=== PATIENT | female | born 1980 | race Two or more races ===

== ENCOUNTER → 2020-07-13 09:13 | Outpatient (BNVA) | payer OTHER, SELFPAY | PROVIDERS: PCP Family Medicine Geriatric Medicine; Referring Provider Family Medicine Geriatric Medicine; Visit Provider Nurse Practitioner | DX: Z76.89 Persons encountering health services in other specified circumstances (principal) ==

== ENCOUNTER 2020-08-25 09:20 | Day surgery (SDC) | payer OTHER, SELFPAY ==
[2020-08-19 15:06] VITALS: BMI 35.2
--- NOTE | 2020-08-24 08:35 | HO.ANESPROP2 ---
Documented by User: Joana Alexandra 08/24/20 08:36 HPI - Anesthesia Eval Consult details Narrative: 40yo F for Colonoscopy PMFSH Past Medical History Medical History Back pain Depression Diabetes mellitus GERD (gastroesophageal reflux disease) High cholesterol Hypothyroid IBS (irritable bowel syndrome) Migraine HINA on CPAP Family History Family History Father Diabetes Mental health problem Mother HTN (hypertension) Heart problem Type 2 diabetes mellitus Brother Colon cancer Surgical History Surgical History Hx of cholecystectomy Hx of colonoscopy Hx of esophagogastroduodenoscopy Social History Social History Alcohol intake: current Alcohol intake frequency: holidays/special occasions only Smoking Status: Never smoker Use of substances other than those prescribed or required for medical reasons: No Advance Directives: No Advance Directives Information Provided: No Advance Directives on File: No Recently lost weight without trying: No Meds Allergies Allergy/AdvReac Type Severity Reaction Status Date / Time sumatriptan [From IMITREX] Allergy Intermediate RIGHT Verified 08/19/20 14:59 SIDED FACIAL NUMBNESS zolmitriptan [From ZOMIG] Allergy Intermediate PASSED OUT Verified 08/19/20 14:59 Home Medications Medication Instructions Recorded Confirmed Type atorvastatin 1 tab PO DAILY 08/19/20 08/19/20 History azelastine 2 spray INTRANASAL BID 08/19/20 08/19/20 History baclofen 1 tab PO TID PRN 08/19/20 08/19/20 History cholecalciferol (vitamin D3) 1 tab PO DAILY 08/19/20 08/19/20 History [Vitamin D3] dapagliflozin [Farxiga] 1 tab PO DAILY 08/19/20 08/19/20 History levothyroxine [Synthroid] 1 tab PO DAILY 08/19/20 08/19/20 History Exam Exam Date and Time: August 24, 2020 0835 Height,Weight and Vital Signs: Height 5 ft 5 in Weight 96.162 kg Assessment and Plan Assessment Anesthesia Assessment: Chart Reviewed Documented by User: Silver Angeles 08/25/20 10:51 PMFSH Past Medical History Medical History Back pain Depression Diabetes mellitus GERD (gastroesophageal reflux disease) High cholesterol Hypothyroid IBS (irritable bowel syndrome) Migraine HINA on CPAP Family History Family History Father Diabetes Mental health problem Mother HTN (hypertension) Heart problem Type 2 diabetes mellitus Brother Colon cancer Surgical History Surgical History Hx of cholecystectomy Hx of colonoscopy Hx of esophagogastroduodenoscopy Social History Social History Alcohol intake: current Alcohol intake frequency: holidays/special occasions only Smoking Status: Never smoker Use of substances other than those prescribed or required for medical reasons: No Advance Directives: No Advance Directives Information Provided: No Advance Directives on File: No Recently lost weight without trying: No Meds Allergies Allergy/AdvReac Type Severity Reaction Status Date / Time sumatriptan [From IMITREX] Allergy Intermediate RIGHT Verified 08/19/20 14:59 SIDED FACIAL NUMBNESS zolmitriptan [From ZOMIG] Allergy Intermediate PASSED OUT Verified 08/19/20 14:59 Home Medications Medication Instructions Recorded Confirmed Type atorvastatin 1 tab PO DAILY 08/19/20 08/19/20 History azelastine 2 spray INTRANASAL BID 08/19/20 08/19/20 History baclofen 1 tab PO TID PRN 08/19/20 08/19/20 History cholecalciferol (vitamin D3) 1 tab PO DAILY 08/19/20 08/19/20 History [Vitamin D3] dapagliflozin [Farxiga] 1 tab PO DAILY 08/19/20 08/19/20 History levothyroxine [Synthroid] 1 tab PO DAILY 08/19/20 08/19/20 History Exam Airway Mallampati Class: III TM Dist: >3cm Neck ROM: Full Loose/Missing/Broken Teeth: No Heart: RRR+[id number] Lungs: CTA B/L Assessment and Plan Assessment Anesthesia Assessment: Anesthesia Plan Discussed, PAT Visit and Chart Reviewed Final Anesthetic Review NPO: Yes ASA Class: II Final Preanesthetic Review: No Changes in Pt Med Stat, Meds/Allgs Chart Reviewed, Consent Obtained/Reviewed and Anes Risks/Benef Reviewed Patient Risk: Low Procedure Risk: Low Assessment/Block/Sedation in SS: Assess/Block/Sedation-SS Anesthetic Plan Anesthetic Plan: MAC: and Agree w/ Assess. and Plan Disposition: Standard PACU
[2020-08-25 09:53] LABS: UPreg QC Valid YES; Urine Pregnancy NEGATIVE (NEGATIVE)
[2020-08-25 09:58] VITALS: BP 114/62; PULSE 64; RESP 16; TEMP 36.3; O2SAT 100
[2020-08-25 10:08] LABS: Glucose, Whole Blood 90 mg/dL (60-115)
[2020-08-25] MEDS: Lactated Ringers 1,000 ML 100 ML IVCONT (10:14)
--- NOTE | 2020-08-25 10:47 | P.HPSUR_ITS ---
Pre-Procedural Eval Section B Chief Complaint: constipation,abdominal distension Details of Present Illness: Colon cancer screening--Pos Family hx-brother with colon cancer. Relevant Family History (Specify if Yes): Yes Relevant Social History: None Present Medications: see Short Stay Collaborative assessment Medical History: Significant History (Migraine hx, Obesity, GERD) History of Previous Operations: Relevant previous surgery/procedure and date(s) (2014--colo-) Allergies: Allergies Allergy/AdvReac Type Severity Reaction Status Date / Time sumatriptan [From IMITREX] Allergy Intermediate RIGHT Verified 08/19/20 14:59 SIDED FACIAL NUMBNESS zolmitriptan [From ZOMIG] Allergy Intermediate PASSED OUT Verified 08/19/20 14: 59 Review of Systems Sugical H&P ROS: Negative: Constitution, Cardiovascular, Respiratory, Gastrointestinal and Musculoskeletal Exam Surgical H&P Exam: Normal: HEENT, Normal: Heart, Normal: Lungs, Normal: Extremities and Normal: Abdomen Plan Diagnosis/Plan: Unchanged I have reviewed the history and physical and performed a pertinent physical examination on my patient. No changes have occurred unless specified.yes,
--- NOTE | 2020-08-25 11:24 | PM.PROC ---
Brief Operative Note Date of procedure: 08/25/20 Pre-op diagnosis: COLON CANCER SCREENING-BROTHER WITH COLON CANCER Post-op diagnosis: other (POLYP-POS FAMILY HISTORY) Procedure: COLONOSCOPY WITH EXCISIONAL POLYPECTOMT Anesthesia: MAC (LATISHA NOWAK) Surgeon: Gayla Cuenca Estimated blood loss (mL): 5 Pathology: other (DISTAL TRANSVERSE COLON) Condition: stable Disposition: PACU
[2020-08-25 11:28] VITALS: BP 104/57; PULSE 67; RESP 67; TEMP 36.3; O2SAT 98
[2020-08-25 11:43] VITALS: BP 116/73; PULSE 60; RESP 16; O2SAT 100
[2020-08-25 12:01] VITALS: BP 114/68; PULSE 58; RESP 16; TEMP 36.3; O2SAT 100
--- NOTE | 2020-08-25 12:39 | HO.POSTANES ---
Post Anesthesia Evaluation Post Anesthesia Evaluation Vital Signs: Vital Signs Temp Pulse Resp BP Pulse Ox 08/25/20 12:01 97.3 F 58 16 114/68 100 08/25/20 11:43 60 16 116/73 100 08/25/20 11:28 97.3 F 67 67 H 104/57 L 98 08/25/20 09:58 97.4 F 64 16 114/62 100 Anesthesia: Monitored Mental Status: Awake Pain Control: Satisfactory Nausea/Vomiting: None Hydration: Adequate Anesthesia-Related Issues: No Anes. Related Issues (Pt has migraine which she gets regulary. Takes her headache injection on the so she will take it when she gets home. Offered coffee/apap. Pt declines and wants to be discharged home.)
--- NOTE | 2020-08-25 13:14 | OP_ITS ---
SURGEON: Gayla Cuenca MD POSTOPERATIVE DIAGNOSIS: Diminutive polyp. PROCEDURE PERFORMED: Colonoscopy with excisional polypectomy x1 (cold biopsy forceps use). ESTIMATED BLOOD LOSS: No significant blood loss. COMPLICATIONS: No complications. ANESTHESIA: Monitored. ANESTHESIOLOGIST: Krystin Jha CRNA ASSISTANTS: No anatomic pathology assistant. SPECIMENS: Specimen removed, distal transverse colon. PREOPERATIVE DIAGNOSES: Colon cancer screening, positive family history, colon cancer in her brother. BOILER TECHNICIAN: Dr. Cuenca. CONDITION: Postprocedure, stable. FINDINGS: Digital rectal exam revealed no specific lesion. Video colonoscope was introduced without difficulty. It was navigated into the rectosigmoid area. Initially with CO2 insufflation, there was poor distention in this region. We switched to air insufflation for the procedure with much better luminal distention. Scope slowly moved through sigmoid, descending, past splenic flexure into the distal transverse colon. A diminutive polyp was identified and removed excisionally (unclear cryptic pattern). Scope continued to be advanced through proximal transverse colon, hepatic flexure, ultimately into the cecum. Appendiceal orifice was seen. Ileocecal valve was eccentrically positioned, but well visualized with some bilious effluent noted during the procedure. Prep was good. There were some areas of residual sticky fluid, which was easily flushed and suctioned. Scope was slowly withdrawn. Good rotational views. No additional lesions were seen. Anorectal verge was clear. CURRENT RECOMMENDATIONS: Repeat asymptomatic screening in this patient will continue to be 5 years. GRAFT OR IMPLANTS: No grafts or implants. Gayla Cuneca MD MEN/MODL / [id number] [facility]
== END 2020-08-25 12:42 | disposition home or self-care (01) ==
PROVIDERS: Nurse Practitioner; Visit Provider Internal Medicine Gastroenterology
PROC: 0DJD8ZZ Inspection of Lower Intestinal Tract, Via Natural or Artificial Opening Endoscopic (ICD-10-PCS; CPT 45378; principal; 2020-08-25 10:40)
DX: K59.00 Constipation, unspecified (principal); Z80.0 Family history of malignant neoplasm of digestive organs; R14.0 Abdominal distension (gaseous); K63.5 Polyp of colon; K21.9 Gastro-esophageal reflux disease without esophagitis; E11.9 Type 2 diabetes mellitus without complications; G47.33 Obstructive sleep apnea (adult) (pediatric); Z79.899 Other long term (current) drug therapy; Z99.89 Dependence on other enabling machines and devices; Z90.49 Acquired absence of other specified parts of digestive tract; Z88.8 Allergy status to other drugs, medicaments and biological substances
CPT/HCPCS: 45380; 81025; 82947; 88305

== ENCOUNTER 2020-09-12 13:14 | Outpatient (REF) | payer OTHER, SELFPAY | END 2020-09-12 13:15 | disposition home or self-care (01) | LOC: HO.LAB 13:14 | PROVIDERS: Visit Provider Internal Medicine | DX: Z20.822 Contact with and (suspected) exposure to COVID-19 (principal) | CPT/HCPCS: 36415; C9803; U0003; U0005 ==

== ENCOUNTER → 2020-10-17 09:43 | Outpatient (BNVA) | payer OTHER, SELFPAY | PROVIDERS: PCP Family Medicine Geriatric Medicine; Visit Provider Nurse Practitioner ==

== ENCOUNTER → 2020-12-16 10:07 | Outpatient (BNVA) | payer OTHER, SELFPAY | PROVIDERS: PCP Family Medicine Geriatric Medicine; Visit Provider Nurse Practitioner ==

== ENCOUNTER → 2021-01-30 09:17 | Outpatient (BNVA) | payer OTHER, SELFPAY | PROVIDERS: Visit Provider Nurse Practitioner ==

== ENCOUNTER → 2021-05-01 08:35 | Outpatient (BNVA) | payer OTHER, SELFPAY | PROVIDERS: PCP Nurse Practitioner Family; Visit Provider Nurse Practitioner ==

== ENCOUNTER → 2021-07-13 08:13 | Outpatient (BNVA) | payer OTHER, SELFPAY | PROVIDERS: PCP Nurse Practitioner Family; Visit Provider Nurse Practitioner ==

== ENCOUNTER → 2021-10-20 07:56 | Outpatient (BNVA) | payer OTHER, SELFPAY | PROVIDERS: PCP Nurse Practitioner Family; Referring Provider Nurse Practitioner Family; Visit Provider Nurse Practitioner | DX: K59.00 Constipation, unspecified (principal); K21.9 Gastro-esophageal reflux disease without esophagitis; K63.89 Other specified diseases of intestine; R14.0 Abdominal distension (gaseous) | CPT/HCPCS: 99212 ==

== ENCOUNTER → 2021-11-14 07:05 | Outpatient (BNVA) | payer OTHER, SELFPAY | PROVIDERS: PCP Nurse Practitioner Family; Referring Provider Nurse Practitioner Family; Visit Provider Nurse Practitioner | DX: K21.9 Gastro-esophageal reflux disease without esophagitis (principal); K59.00 Constipation, unspecified; R14.0 Abdominal distension (gaseous) | CPT/HCPCS: 99212 ==

== ENCOUNTER → 2021-12-14 07:09 | Outpatient (BNVA) | payer OTHER, SELFPAY | PROVIDERS: PCP Nurse Practitioner Family; Referring Provider Nurse Practitioner Family; Visit Provider Nurse Practitioner | DX: K59.00 Constipation, unspecified (principal); K21.9 Gastro-esophageal reflux disease without esophagitis; K63.89 Other specified diseases of intestine; R10.13 Epigastric pain; R14.0 Abdominal distension (gaseous) | CPT/HCPCS: 99212 ==

== ENCOUNTER → 2022-03-23 08:23 | Outpatient (BNVA) | payer OTHER, SELFPAY | PROVIDERS: PCP Nurse Practitioner Family; Visit Provider Nurse Practitioner | DX: K59.00 Constipation, unspecified (principal); R14.0 Abdominal distension (gaseous); K58.9 Irritable bowel syndrome, unspecified; K21.9 Gastro-esophageal reflux disease without esophagitis; K63.89 Other specified diseases of intestine | CPT/HCPCS: 99212 ==

== ENCOUNTER → 2022-09-21 14:33 | Outpatient (BNVA) | payer OTHER, SELFPAY | PROVIDERS: PCP Nurse Practitioner Family; Visit Provider Nurse Practitioner | DX: K59.04 Chronic idiopathic constipation (principal); K21.9 Gastro-esophageal reflux disease without esophagitis; R14.0 Abdominal distension (gaseous) | CPT/HCPCS: 99212 ==

== ENCOUNTER → 2022-10-05 07:50 | Outpatient (BNVA) | payer OTHER, SELFPAY | PROVIDERS: PCP Nurse Practitioner Family; Referring Provider Nurse Practitioner Family; Visit Provider Nurse Practitioner | DX: K21.9 Gastro-esophageal reflux disease without esophagitis (principal); K63.89 Other specified diseases of intestine; K59.00 Constipation, unspecified; R14.0 Abdominal distension (gaseous); R11.0 Nausea | CPT/HCPCS: 99212 ==

== ENCOUNTER → 2022-11-09 09:53 | Outpatient (BNVA) | payer OTHER, SELFPAY | PROVIDERS: PCP Nurse Practitioner Family; Visit Provider Nurse Practitioner | DX: K21.9 Gastro-esophageal reflux disease without esophagitis (principal); K59.00 Constipation, unspecified; R14.0 Abdominal distension (gaseous); K63.89 Other specified diseases of intestine; Z90.49 Acquired absence of other specified parts of digestive tract | CPT/HCPCS: 99212 ==

== ENCOUNTER → 2022-11-23 07:54 | Outpatient (BNVA) | payer OTHER, SELFPAY | PROVIDERS: PCP Nurse Practitioner Family; Referring Provider Nurse Practitioner Family; Visit Provider Nurse Practitioner | DX: K21.9 Gastro-esophageal reflux disease without esophagitis (principal); K59.00 Constipation, unspecified; R14.0 Abdominal distension (gaseous); R11.0 Nausea | CPT/HCPCS: 99212 ==

== ENCOUNTER → 2022-12-11 08:29 | Outpatient (BNVA) | payer OTHER, SELFPAY | PROVIDERS: PCP Nurse Practitioner Family; Visit Provider Nurse Practitioner | DX: K59.00 Constipation, unspecified (principal); K21.9 Gastro-esophageal reflux disease without esophagitis; R11.0 Nausea | CPT/HCPCS: 99212 ==

== ENCOUNTER → 2023-01-01 08:49 | Outpatient (BNVA) | payer OTHER, SELFPAY | PROVIDERS: PCP Nurse Practitioner Family; Referring Provider Nurse Practitioner Family; Visit Provider Nurse Practitioner | DX: K59.00 Constipation, unspecified (principal); K21.9 Gastro-esophageal reflux disease without esophagitis; Z79.899 Other long term (current) drug therapy | CPT/HCPCS: 99212 ==

== ENCOUNTER 2023-05-01 11:16 | Outpatient (REF) | payer OTHER, SELFPAY ==
[2023-05-01 14:28] LABS: TSH reflex Free T4 1.57 uIU/mL (0.32-4.0)
== END 2023-05-01 11:17 | disposition home or self-care (01) ==
LOC: HO.LAB 11:16
PROVIDERS: PCP Nurse Practitioner Family; Visit Provider Nurse Practitioner
DX: K59.00 Constipation, unspecified (principal); K21.9 Gastro-esophageal reflux disease without esophagitis
CPT/HCPCS: 36415; 84443; 99212

== ENCOUNTER 2023-05-01 11:16 | Outpatient (AMB) | payer OTHER, SELFPAY ==
--- NOTE | 2023-05-01 11:37 | MHC.OFFVIS ---
Intake Vital Signs 05/01/23 11:40 Height 5 ft Weight 223 lb 8.78 oz BMI 43.7 BP 110/70 Blood Pressure Location Rt brachial Position Sitting Pulse 77 Intake Visit Reasons: 3month follow up Intake Note: Patient presents to in office visit today in 3 months follow up of constipation. CC: Pt reports she continues to have constipation but has seen at slight improvement after starting metoclopramide. She c/o abdominal bloating all the time. Patient also reports occasional acid reflux and rectal bleeding. 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 She is feeling a bit better on the LInzess 290. She takes it in the evening r/t her work schedule, and uses bisacodyl as well. She still will have episodes of in complete evacuation, but the bloating is better. She also continues on the reglan. Given her schedule restrictions, and her fear of having to move her bowels at work, I think this is the best we can do for now. Hopefully, her bowels will become trained and she will start having better emptying. ROV 3 mos and she can call for appt if things are not working. (2) GERD (gastroesophageal reflux disease): ?Code(s): K21.9 - Gastro-esophageal reflux disease without esophagitis ? ? ? Medications: Refilled linaclotide (Linze ss) 290 mcg? PO QAM 30 days 30 caps 6RF D K59.00 - Constipat ion, unspecified ? metoclopramide HCl (Reglan) 10 mg? PO QIDACHS 120 tabs 6RF R11.0 - Nausea, R1 4.0 - Abdominal di stension (gaseous) ? simethicone (Anti- Gas Ultra Strength ) 180 mg? PO QID 30 days 120 caps 6RF D R14.0 - Abdominal distension (gaseou s) ? bisacodyl (Dulcola x (bisacodyl)) 10 mg (2 x 5 mg) P O BEDTIME 30 days 60 tabs 6RF tera harley K59.00 - Constipat ion, unspecified ? TODAY'S VISIT She speaks [place]. She is still not moving her bowels well despite LInzess 290, reglan (although it does help) and 1 bisacodyl at night. Will increase bisacodyl to up to 3 a night. Getting TSH. Simethicone not helping enough, and she has significant bloating. She continues on Dexilant and famotidine for her GERD. ROV 3 weeks. 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 Review of Systems Const Denies fatigue, Denies fever(s), Denies night sweats, Denies poor appetite and Denies weight loss ENT Reports Normal hearing present, Denies dental pain, Denies dysphagia, Denies hearing loss, Denies mouth pain, Denies odynophagia, Denies throat swelling, Denies tongue swelling and Reports other (Dentition adequate) Card Reports no additional complaints Resp Reports no additional complaints GI Denies abdominal pain, Denies melena, Reports bloating, Denies hematochezia, Reports constipation, Denies GI cramping, Denies dysphagia, Denies excessive flatus, Denies early satiety, Reports heartburn, Denies diarrhea, Denies nausea, Denies odynophagia, Denies vomiting and Denies hematemesis Skin/Breast Denies pruritus, Denies lesions, Denies rash and Denies jaundice Neuro Reports Normal hearing present and Denies Abnormal speech present Endo Denies fatigue Aller/Immun Denies throat swelling and Denies tongue swelling Physical Exam Vital Signs: Last Vital Signs Pulse 77 05/01/23 11:40 BP 110/70 05/01/23 11:40 BMI result Body Mass Index 43.7 Const General: cooperative, no acute distress, well developed and well groomed Nutritional Appearance: well nourished and obese Orientation/consciousness: oriented to person, oriented to place and oriented to time Limitations: No language barrier HEENT Head: Yes normocephalic and Yes atraumatic Eyes General: appearance normal, both eyes and all related structures Pupils: Equal, round and reactive pupils present Neck Neck: Yes normal visual inspection and Yes no lymphadenopathy Thyroid: Thyroid normal Resp Effort & Inspection: normal respiratory effort and able to speak in complete sentences Auscultation: clear to auscultation bilaterally Cardio Rate: regular rate Rhythm: regular rhythm Heart sounds: Normal, physiologic split S2 sound present Peripheral pulses: radial pulses present and posterior tibial pulses present GI Inspection: No distended, Yes Abdominal panniculus present and Yes obesity Palpation (GI): Soft to palpation, nontender, no guarding, not rigid and No hepatosplenomegaly present Percussion: Yes normal to percussion Auscultation: normal bowel sounds Rectal Exam - Female: deferred Skin General skin exam: no rashes or lesions noted, turgor normal, skin not dry, no jaundice, No spider nevi and no striae Rashes: no rashes Nails: normal Neuro General: oriented to person, oriented to place and oriented to time Cranial nerves: Yes Equal, round and reactive pupils present and Yes Normal hearing present Speech: No Abnormal speech present Extrem General: Yes normal to inspection, No clubbing, No cyanosis and No edema Psych Appearance: grossly normal and well kempt Mental Status: mental status grossly normal Speech and movement: Normal speech and movement present Affect: normal affect Attitude: cooperative Thought process: Normal thought process present and not confabulating Thought content: Normal thought content present Insight: Limited insight present (Psych) Judgement: Limited judgement present (Psych) Assessment & Plan Assessment & Plan (1) Constipation: Code(s): K59.00 - Constipation, unspecified Plan: She speaks [place]. She is still not moving her bowels well despite LInzess 290, reglan (although it does help) and 1 bisacodyl at night. Will increase bisacodyl to up to 3 a night. Getting TSH. Simethicone not helping enough, and she has significant bloating. She continues on Dexilant and famotidine for her GERD. ROV 3 weeks. (2) GERD (gastroesophageal reflux disease): Code(s): K21.9 - Gastro-esophageal reflux disease without esophagitis Orders: Orders TSH reflex Free T4 05/01/23 K59.00 - Constipation, unspecified Medications: Changed From bisacodyl 10 mg (2 x 5 mg) PO BEDTIME 90 days 180 tabs 3RF constipation K59.00 - Constipation, unspecified To bisacodyl (Dulcolax (bisacodyl)) 15 mg (3 x 5 mg) PO BEDTIME 270 tabs 3RF constipation 90 days K59.00 - Constipation, unspecified Refilled metoclopramide HCl (Reglan) 10 mg PO QIDACHS 120 tabs 6RF R11.0 - Nausea, R14.0 - Abdominal distension (gaseous) simethicone (Anti-Gas Ultra Strength) 180 mg PO QID 120 caps 6RF 30 days R14.0 - Abdominal distension (gaseous) linaclotide (Linzess) 290 mcg PO QAM 30 caps 6RF 30 days K59.00 - Constipation, unspecified dexlansoprazole 60 mg PO DAILY 90 caps 1RF K21.9 - Gastro-esophageal reflux disease without esophagitis, K63.89 - Other specified diseases of intestine, R14.0 - Abdominal distension (gaseous) famotidine 40 mg PO BID 180 tabs 2RF 90 days K21.9 - Gastro-esophageal reflux disease without esophagitis bisacodyl (Dulcolax (bisacodyl)) 15 mg (3 x 5 mg) PO BEDTIME 270 tabs 3RF constipation 90 days K59.00 - Constipation, unspecified Discontinued linaclotide Discontinued Reason: Doctor's Order 145 mcg PO .qhs 30 caps 3RF K59.00 - Constipation, unspecified Coding Level of Care Code Est Pt Level 3 (91574) Diagnoses Constipation K59.00 GERD (gastroesophageal reflux disease) K21.9
[2023-05-01 11:40] VITALS: BP 110/70; PULSE 77; BMI 43.7
== END 2023-05-01 12:07 | disposition home or self-care (01) ==
PROVIDERS: PCP Nurse Practitioner Family; Visit Provider Nurse Practitioner
DX: K59.00 Constipation, unspecified (principal); K21.9 Gastro-esophageal reflux disease without esophagitis
CPT/HCPCS: 99213

== ENCOUNTER 2023-06-13 12:14 | Outpatient (AMB) | payer OTHER, SELFPAY ==
[2023-06-13 12:16] VITALS: BP 116/62; PULSE 70; O2SAT 97; BMI 43.9
--- NOTE | 2023-06-13 12:16 | A.OFFVIS_ITS ---
Intake Vital Signs 06/13/23 12:16 Height 5 ft Weight 224 lb 13.944 oz BMI 43.9 BP 116/62 Blood Pressure Location Rt brachial Position Sitting Pulse 70 Pulse Source Pulse Oximeter Pulse Oximetry (%) 97 Oxygen Delivery Method Room Air Intake Visit Reasons: 3 week follow up Med check Intake Note: Pt presents to the office for a 3 week med check. Pt states she is doing well on the new medications. Pt states she is still having constipation but believes it has improved some. Pt states she is still having issues with bloating and stated that she was nauseous 2 days ago due to the bloating. Pt denies any vomiting or diarrhea. Allergies sumatriptan [From IMITREX] Allergy (Intermediate, Verified 06/13/23 12:18) RIGHT SIDED FACIAL NUMBNESS zolmitriptan [From ZOMIG] Allergy (Intermediate, Verified 06/13/23 12:18) PASSED OUT HPI 3 week follow up Med check HPI Details Assessment & Plan (1) Constipation: Code(s): K59.00 - Constipation, unspecified Plan: She speaks [place]. She is still not moving her bowels well despite LInzess 290, reglan (although it does help) and 1 bisacodyl at night. Will increase bisacodyl to up to 3 a night. Getting TSH. Simethicone not helping enough, and she has significant bloating. She continues on Dexilant and famotidine for her GERD. ROV 3 weeks. (2) GERD (gastroesophageal reflux diseas e): Code(s): K21.9 - Gastro-esophageal reflux disease without esophagitis Orders: Orders TSH reflex Free T4 05/01/23 K59.00 - Constipat ion, unspecified Medications: Changed From bisacodyl 10 mg (2 x 5 mg) P O BEDTIME 90 days 180 tabs 3RF const ipation K59.00 - Constipat ion, unspecified To bisacodyl (Dulcola x (bisacodyl)) 15 mg (3 x 5 mg) P O BEDTIME 270 tabs 3RF constipation 90 days K59.00 - Constipat ion, unspecified Refilled metoclopramide HCl (Reglan) 10 mg PO QIDACHS 1 20 tabs 6RF R11.0 - Nausea, R1 4.0 - Abdominal di stension (gaseous) simethicone (Anti- Gas Ultra Strength ) 180 mg PO QID 120 caps 6RF 30 days R14.0 - Abdominal distension (gaseou s) linaclotide (Linze ss) 290 mcg PO QAM 30 caps 6RF 30 days K59.00 - Constipat ion, unspecified dexlansoprazole 60 mg PO DAILY 90 caps 1RF K21.9 - Gastro-eso phageal reflux dis ease without esoph agitis, K63.89 - O ther specified dis eases of intestine , R14.0 - Abdomina l distension (gase ous) famotidine 40 mg PO BID 180 t abs 2RF 90 days K21.9 - Gastro-eso phageal reflux dis ease without esoph agitis bisacodyl (Dulcola x (bisacodyl)) 15 mg (3 x 5 mg) P O BEDTIME 270 tabs 3RF constipation 90 days K59.00 - Constipat ion, unspecified Discontinued linaclotide Dis continued Reason: Doctor's Order 145 mcg PO .qhs 3 0 caps 3RF K59.00 - Constipat ion, unspecified Laboratory Tests 05/01/23 12:09 TSH 1.57 TODAY'S VISIT She speaks [place]. She still having difficulty with constipation. This week she did not move her bowels for couple days and she had a feeling like there was a fist in the middle of her stomach. Then she ?exploded? this morning. She still struggles a lot with bloating and she questions if the gluten can have a role in this. I will do some testing I educated her that food allergies can be tested for, but intolerances can not; that is a trial and error thing. I will give her the FODMAP diet so she can try to look for things that could be common causes of bloating. However, I think the biggest problem is controlling his stooling. If we can not get the stool moving than gas will get trapped behind it and will much matter what she eats. She never tried increasing the bisacodyl to 3 at night and I encouraged her to do this while she continues on her Linzess therapy. She also continues on her metoclopramide. ROV 5 weeks. [facility] Medical History IBS (irritable bowel syndrome) Depression Back pain Hypothyroid Diabetes mellitus Migraine HINA on CPAP High cholesterol Surgical History History of biopsy Hx of cholecystectomy Hx of esophagogastroduodenoscopy Hx of colonoscopy Family History Father Diabetes Mental health problem Mother HTN (hypertension) Heart problem Type 2 diabetes mellitus Brother Colon cancer Social History (Updated 06/13/23 @ 12:18 by Ewelina Rneee MA) Household Members: Significant Other Alcohol intake: current Alcohol intake frequency: holidays/special occasions only Comment: Pt due for Amovig SQ injection today for [facility] Patient Tobacco Use Status: Never used Tobacco Current occupational status: employed 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 Review of Systems Const Denies fatigue, Denies fever(s), Denies night sweats, Denies poor appetite and Denies weight loss ENT Reports Normal hearing present, Denies dental pain, Denies dysphagia, Denies hearing loss, Denies mouth pain, Denies odynophagia, Denies throat swelling, Denies tongue swelling and Reports other (Dentition adequate) Card Reports no additional complaints Resp Reports no additional complaints GI Denies abdominal pain, Denies melena, Reports bloating, Denies hematochezia, Reports constipation, Denies GI cramping, Denies dysphagia, Reports excessive flatus, Denies early satiety, Reports heartburn, Denies diarrhea, Denies nausea, Denies odynophagia, Denies vomiting and Denies hematemesis Skin/Breast Denies pruritus, Denies lesions, Denies rash and Denies jaundice Neuro Reports Normal hearing present and Denies Abnormal speech present Endo Denies fatigue Aller/Immun Denies throat swelling and Denies tongue swelling Physical Exam Vital Signs: Last Vital Signs Pulse 70 06/13/23 12:16 BP 116/62 06/13/23 12:16 Pulse Ox 97 06/13/23 12:16 Oxygen Delivery Method Room Air 06/13/23 12:16 BMI result Body Mass Index 43.9 Const General: cooperative, no acute distress, well developed and well groomed Nutritional Appearance: well nourished and obese Orientation/consciousness: oriented to person, oriented to place and oriented to time Limitations: No language barrier HEENT Head: Yes normocephalic and Yes atraumatic Eyes General: appearance normal, both eyes and all related structures Pupils: Equal, round and reactive pupils present Neck Neck: Yes normal visual inspection and Yes no lymphadenopathy Thyroid: Thyroid normal Resp Effort & Inspection: normal respiratory effort and able to speak in complete sentences Auscultation: clear to auscultation bilaterally Cardio Rate: regular rate Rhythm: regular rhythm Heart sounds: Normal, physiologic split S2 sound present Peripheral pulses: radial pulses present and posterior tibial pulses present GI Inspection: No distended, No Abdominal panniculus present and Yes obesity Palpation (GI): Soft to palpation, nontender, no guarding, not rigid and No hepatosplenomegaly present Percussion: Yes normal to percussion Auscultation: normal bowel sounds Rectal Exam - Female: deferred Skin General skin exam: no rashes or lesions noted, turgor normal, skin not dry, no jaundice, No spider nevi and no striae Rashes: no rashes Nails: normal Neuro General: oriented to person, oriented to place and oriented to time Cranial nerves: Yes Equal, round and reactive pupils present and Yes Normal hearing present Speech: No Abnormal speech present Extrem General: Yes normal to inspection, No clubbing, No cyanosis and No edema Psych Appearance: grossly normal and well kempt Mental Status: mental status grossly normal Speech and movement: Normal speech and movement present Affect: normal affect Attitude: cooperative Thought process: Normal thought process present and not confabulating Thought content: Normal thought content present Insight: Limited insight present (Psych) Judgement: Limited judgement present (Psych) Assessment & Plan Assessment & Plan (1) Constipation: Code(s): K59.00 - Constipation, unspecified (2) GERD (gastroesophageal reflux disease): Code(s): K21.9 - Gastro-esophageal reflux disease without esophagitis (3) Abdominal bloating: Code(s): R14.0 - Abdominal distension (gaseous) Plan She speaks [place]. She still having difficulty with constipation. This week she did not move her bowels for couple days and she had a feeling like there was a fist in the middle of her stomach. Then she ?exploded? this morning. She still struggles a lot with bloating and she questions if the gluten can have a role in this. I will do some testing I educated her that food allergies can be tested for, but intolerances can not; that is a trial and error thing. I will give her the FODMAP diet so she can try to look for things that could be common causes of bloating. However, I think the biggest problem is controlling his stooling. If we can not get the stool moving than gas will get trapped behind it and will much matter what she eats. She never tried increasing the bisacodyl to 3 at night and I encouraged her to do this while she continues on her Linzess therapy. She also continues on her metoclopramide. ROV 5 weeks. Orders: Orders Transglutaminase IgA 06/20/23 R14.0 - Abdominal distension (gaseous) Transglutaminase Ab IgG 06/20/23 R14.0 - Abdominal distension (gaseous) GI Panel 06/13/23 R14.0 - Abdominal distension (gaseous) Rast Allergen 06/20/23 R14.0 - Abdominal distension (gaseous) Coding Level of Care Code Est Pt Level 3 (32746) Diagnoses Constipation K59.00 GERD (gastroesophageal reflux disease) K21.9 Abdominal bloating R14.0
== END 2023-06-13 12:40 | disposition home or self-care (01) ==
PROVIDERS: PCP Nurse Practitioner Family; Visit Provider Nurse Practitioner
DX: K59.00 Constipation, unspecified (principal); K21.9 Gastro-esophageal reflux disease without esophagitis; R14.0 Abdominal distension (gaseous)
CPT/HCPCS: 99213

== ENCOUNTER → 2023-06-13 12:14 | Outpatient (BNVA) | payer OTHER, SELFPAY | PROVIDERS: PCP Nurse Practitioner Family; Visit Provider Nurse Practitioner | DX: K21.9 Gastro-esophageal reflux disease without esophagitis (principal); R14.0 Abdominal distension (gaseous); K59.00 Constipation, unspecified | CPT/HCPCS: 99212 ==

== ENCOUNTER 2023-06-20 11:54 | Outpatient (REF) | payer OTHER, SELFPAY ==
[2023-06-21 13:18] LABS: Transglutaminase Ab IgG <1.0 U/mL; Transglutaminase IgA <1.0 U/mL
== END 2023-06-20 11:55 | disposition home or self-care (01) ==
LOC: HO.LAB 11:54
PROVIDERS: Visit Provider Nurse Practitioner
DX: R14.0 Abdominal distension (gaseous) (principal)
CPT/HCPCS: 36415; 86003; 86364

== ENCOUNTER 2023-08-28 08:19 | Outpatient (AMB) | payer OTHER, SELFPAY ==
--- NOTE | 2023-08-28 08:25 | MHC.OFFVIS ---
Intake Vital Signs 08/28/23 08:27 Height 5 ft Weight 218 lb 4.122 oz BMI 42.6 BP 97/50 L Blood Pressure Location Lt brachial Position Sitting Pulse 65 Intake Visit Reasons: 5 week follow up Intake Note: Dunia presents in the office as a 5 week follow up. CC: She states that she is not having any concerns at this time. Allergies sumatriptan [From IMITREX] Allergy (Intermediate, Verified 08/28/23 08:28) RIGHT SIDED FACIAL NUMBNESS zolmitriptan [From ZOMIG] Allergy (Intermediate, Verified 08/28/23 08:28) PASSED OUT HPI 5 week follow up HPI Details Assessment & Plan (1) Constipation: Code(s): K59.00 - Constipation, unspecified (2) GERD (gastroesophageal reflux disease): Code(s): K21.9 - Gastro-esophageal reflux disease without esophagitis (3) Abdominal bloating: Code(s): R14.0 - Abdominal distension (gaseous) Plan She speaks Citizen [place]. She still having difficulty with constipation. This week she did not move her bowels for couple days and she had a feeling like there was a fist in the middle of her stomach. Then she ?exploded? this morning. She still struggles a lot with bloating and she questions if the gluten can have a role in this. I will do some testing I educated her that food allergies can be tested for, but intolerances can not; that is a trial and error thing. I will give her the FODMAP diet so she can try to look for things that could be common causes of bloating. However, I think the biggest problem is controlling his stooling. If we can not get the stool moving than gas will get trapped behind it and will much matter what she eats. She never tried increasing the bisacodyl to 3 at night and I encouraged her to do this while she continues on her Linzess therapy. She also continues on her metoclopramide. ROV 5 weeks. Orders: Orders Transglutaminase I gA 06/20/23 R14.0 - Abdominal distension (gaseou s) Transglutaminase A b IgG 06/20/23 R14.0 - Abdominal distension (gaseou s) GI Panel 06/13/23 R14.0 - Abdominal distension (gaseou s) Rast Allergen 06/20/23 R14.0 - Abdominal distension (gaseou s) LABS: Laboratory Tests 06/20/23 12:14 Tiss Transglutamin IgG <1.0 Tiss Transglutamin IgA <1.0 the GI panel was not completed and THE RAST SHOWS NO SIGNIFICANT FOOD ALLERGIES TODAY'S VISIT She speaks Citizen [place]. She continues to utilize the bisacodyl sometimes 2-3 which is fine. She is using this more than the Linzess because of her work schedule, as she finds that if she uses the Linzess she will be in the bathroom all day. Obviously, her work schedule has been a deterrent to getting her bowels consistently emptying at an appropriate time. She is also having more left lower quadrant discomfort but she is uncertain if this is related to her stooling schedule her the fact that her menses is starting. Overall, her bloating is improved with better bowel motility. She also thanks me saying that she is definitely improved since we started working together despite the limitations we have encountered in terms of her work schedule. We discussed the possibility of diverticulitis in his this pain does not get better as her menses progresses then I will give her an antibiotic empirically. She is to call the office. In the meantime I let her know she does not seem to have any specific food allergies. She does produce a lot of gas and this could be a combination of constipation and some food intolerances. She continues on her famotidine twice a day, has simethicone available and also continues on metoclopramide. Return office visit in 4 weeks and at that time confirm whether or not I ever gave her the FODMAP diet. [facility] Medical History IBS (irritable bowel syndrome) Depression Back pain Hypothyroid Diabetes mellitus Migraine HINA on CPAP High cholesterol Surgical History History of biopsy Hx of cholecystectomy Hx of esophagogastroduodenoscopy Hx of colonoscopy Family History Father Diabetes Mental health problem Mother HTN (hypertension) Heart problem Type 2 diabetes mellitus Brother Colon cancer Social History (Updated 06/13/23 @ 12:18 by Ewelina Renee MA) Household Members: Significant Other Alcohol intake: current Alcohol intake frequency: holidays/special occasions only Comment: Pt due for Amovig SQ injection today for [facility] Patient Tobacco Use Status: Never used Tobacco Current occupational status: employed 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 Review of Systems Const Denies fatigue, Denies fever(s), Denies night sweats, Denies poor appetite and Denies weight loss ENT Reports Normal hearing present, Denies dental pain, Denies dysphagia, Denies hearing loss, Denies mouth pain, Denies odynophagia, Denies throat swelling, Denies tongue swelling and Reports other (Dentition adequate) Card Reports no additional complaints Resp Reports no additional complaints GI Reports abdominal pain, Denies melena, Reports bloating, Denies hematochezia, Reports constipation, Denies GI cramping, Denies dysphagia, Denies excessive flatus, Denies early satiety, Reports heartburn, Denies diarrhea, Denies nausea, Denies odynophagia, Denies vomiting and Denies hematemesis Skin/Breast Denies pruritus, Denies lesions, Denies rash and Denies jaundice Neuro Reports Normal hearing present and Denies Abnormal speech present Endo Denies fatigue Aller/Immun Denies throat swelling and Denies tongue swelling Physical Exam Vital Signs: Last Vital Signs Pulse 65 08/28/23 08:27 BP 97/50 L 08/28/23 08:27 BMI result Body Mass Index 42.6 Const General: cooperative, no acute distress, well developed and well groomed Nutritional Appearance: well nourished and obese Orientation/consciousness: oriented to person, oriented to place and oriented to time Limitations: No language barrier HEENT Head: Yes normocephalic and Yes atraumatic Eyes General: appearance normal, both eyes and all related structures Pupils: Equal, round and reactive pupils present Neck Neck: Yes normal visual inspection and Yes no lymphadenopathy Thyroid: Thyroid normal Resp Effort & Inspection: normal respiratory effort and able to speak in complete sentences Auscultation: clear to auscultation bilaterally Cardio Rate: regular rate Rhythm: regular rhythm Heart sounds: Normal, physiologic split S2 sound present Peripheral pulses: radial pulses present and posterior tibial pulses present GI Inspection: No distended, Yes Abdominal panniculus present and Yes obesity Palpation (GI): Soft to palpation, Tenderness to palpation present (GI) in the LLQ, no guarding, not rigid and No hepatosplenomegaly present Percussion: Yes normal to percussion Auscultation: normal bowel sounds Rectal Exam - Female: deferred Skin General skin exam: no rashes or lesions noted, turgor normal, skin not dry, no jaundice, No spider nevi and no striae Rashes: no rashes Nails: normal Neuro General: oriented to person, oriented to place and oriented to time Cranial nerves: Yes Equal, round and reactive pupils present and Yes Normal hearing present Speech: No Abnormal speech present Extrem General: Yes normal to inspection, No clubbing, No cyanosis and No edema Psych Appearance: grossly normal and well kempt Mental Status: mental status grossly normal Speech and movement: Normal speech and movement present Affect: normal affect Attitude: cooperative Thought process: Normal thought process present and not confabulating Thought content: Normal thought content present Insight: Fair insight present (Psych) Judgement: Fair judgement present (Psych) Results Reviewed Results Reviewed: Laboratory Tests 06/20/23 12:14 Tiss Transglutamin IgG <1.0 Tiss Transglutamin IgA <1.0 the GI panel was not completed and THE RAST SHOWS NO SIGNIFICANT FOOD ALLERGIES Assessment & Plan Assessment & Plan (1) Constipation: Code(s): K59.00 - Constipation, unspecified (2) GERD (gastroesophageal reflux disease): Code(s): K21.9 - Gastro-esophageal reflux disease without esophagitis (3) Small intestinal bacterial overgrowth: Code(s): K63.89 - Other specified diseases of intestine (4) Epigastric abdominal pain: Code(s): R10.13 - Epigastric pain (5) Abdominal bloating: Code(s): R14.0 - Abdominal distension (gaseous) Plan She speaks [place]. She continues to utilize the bisacodyl sometimes 2-3 which is fine. She is using this more than the Linzess because of her work schedule, as she finds that if she uses the Linzess she will be in the bathroom all day. Obviously, her work schedule has been a deterrent to getting her bowels consistently emptying at an appropriate time. She is also having more left lower quadrant discomfort but she is uncertain if this is related to her stooling schedule her the fact that her menses is starting. Overall, her bloating is improved with better bowel motility. She also thanks me saying that she is definitely improved since we started working together despite the limitations we have encountered in terms of her work schedule. We discussed the possibility of diverticulitis in his this pain does not get better as her menses progresses then I will give her an antibiotic empirically. She is to call the office. In the meantime I let her know she does not seem to have any specific food allergies. She does produce a lot of gas and this could be a combination of constipation and some food intolerances. She continues on her famotidine twice a day, has simethicone available and also continues on metoclopramide. Return office visit in 4 weeks and at that time confirm whether or not I ever gave her the FODMAP diet. Coding Level of Care Code Est Pt Level 3 (06163) Diagnoses Constipation K59.00 GERD (gastroesophageal reflux disease) K21.9 Small intestinal bacterial overgrowth K63.89 Epigastric abdominal pain R10.13 Abdominal bloating R14.0
[2023-08-28 08:27] VITALS: BP 97/50; PULSE 65; BMI 42.6
== END 2023-08-28 08:48 | disposition home or self-care (01) ==
PROVIDERS: PCP Nurse Practitioner Family; Visit Provider Nurse Practitioner
DX: K59.00 Constipation, unspecified (principal); K21.9 Gastro-esophageal reflux disease without esophagitis; K63.89 Other specified diseases of intestine; R10.13 Epigastric pain; R14.0 Abdominal distension (gaseous)
CPT/HCPCS: 99213

== ENCOUNTER → 2023-08-28 08:19 | Outpatient (BNVA) | payer OTHER, SELFPAY | PROVIDERS: PCP Nurse Practitioner Family; Visit Provider Nurse Practitioner | DX: K59.00 Constipation, unspecified (principal); K21.9 Gastro-esophageal reflux disease without esophagitis; K63.89 Other specified diseases of intestine; R10.13 Epigastric pain; R14.0 Abdominal distension (gaseous) | CPT/HCPCS: 99212 ==

== ENCOUNTER 2023-09-25 08:23 | Outpatient (AMB) | payer OTHER, SELFPAY ==
--- NOTE | 2023-09-25 08:31 | A.OFFVIS_ITS ---
Intake Vital Signs 09/25/23 08:37 Height 5 ft Weight 218 lb BMI 42.6 BP 112/53 L Pulse 68 Intake Visit Reasons: 4 week f/u Intake Note: Patient states she is currently having constipation issues, no other issues at the moment. 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 Accompanied by: Self / Same As Patient Allergies sumatriptan [From IMITREX] Allergy (Intermediate, Verified 09/25/23 08:41) RIGHT SIDED FACIAL NUMBNESS zolmitriptan [From ZOMIG] Allergy (Intermediate, Verified 09/25/23 08:41) PASSED OUT HPI 4 week f/u HPI Details ssessment & Plan (1) Constipation: Code(s): K59.00 - Constipation, unspecified (2) GERD (gastroesophageal reflux diseas e): Code(s): K21.9 - Gastro-esophageal reflux disease without esophagitis (3) Small intestinal bacterial overgrowt h: Code(s): K63.89 - Other specified diseases of intestine (4) Epigastric abdominal pain: Code(s): R10.13 - Epigastric pain (5) Abdominal bloating: Code(s): R14.0 - Abdominal distension (gaseous) Plan She speaks [place]. She continues to utilize the bisacodyl sometimes 2-3 which is fine. She is using this more than the Linzess because of her work schedule, as she finds that if she uses the Linzess she will be in the bathroom all day. Obviously, her work schedule has been a deterrent to getting her bowels consistently emptying at an appropriate time. She is also having more left lower quadrant discomfort but she is uncertain if this is related to her stooling schedule her the fact that her menses is starting. Overall, her bloating is improved with better bowel motility. She also thanks me saying that she is definitely improved since we started working together despite the limitations we have encountered in terms of her work schedule. We discussed the possibility of diverticulitis in his this pain does not get better as her menses progresses then I will give her an antibiotic empirically. She is to call the office. In the meantime I let her know she does not seem to have any specific food allergies. She does produce a lot of gas and this could be a combination of constipation and some food intolerances. She continues on her famotidine twice a day, has simethicone available and also continues on metoclopramide. Return office visit in 4 weeks and at that time confirm whether or not I ever gave her the FODMAP diet. TODAY'S VISIT She speaks [place]. She is doing well trying to figure out a schedule for taking her Linzess and bisacodyl but right now she seems to have something that is working for her. The only problem is she has not got her Dexilant for this month. She only received a 30 day supply at her last refill when she was supposed to get 90 days. This sounds like a pharmacy error since her insurance companies telling her that they build them for 90 days and she can get a refill till October. We will try calling the pharmacy and in the meantime she will take famotidine twice a day. Return office visit in 6 months. [facility] Medical History IBS (irritable bowel syndrome) Depression Back pain Hypothyroid Diabetes mellitus Migraine HINA on CPAP High cholesterol Surgical History History of biopsy Hx of cholecystectomy Hx of esophagogastroduodenoscopy Hx of colonoscopy Family History Father Diabetes Mental health problem Mother HTN (hypertension) Heart problem Type 2 diabetes mellitus Brother Colon cancer Social History (Updated 06/13/23 @ 12:18 by Ewelina Renee MA) Household Members: Significant Other Alcohol intake: current Alcohol intake frequency: holidays/special occasions only Comment: Pt due for Amovig SQ injection today for [facility]TER Patient Tobacco Use Status: Never used Tobacco Current occupational status: employed 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 ASSESSMENT Review of Systems Const Denies fatigue, Denies fever(s), Denies night sweats, Denies poor appetite and Denies weight loss ENT Reports Normal hearing present, Denies dental pain, Denies dysphagia, Denies hearing loss, Denies mouth pain, Denies odynophagia, Denies throat swelling, Denies tongue swelling and Reports other (Dentition adequate) Card Reports no additional complaints Resp Reports no additional complaints GI Details: Denies abdominal pain, Denies melena, Reports bloating, Denies hematochezia, Reports constipation, Denies GI cramping, Denies dysphagia, Denies excessive flatus, Denies early satiety, Reports heartburn, Denies diarrhea, Denies nausea, Denies odynophagia, Denies vomiting and Denies hematemesis Skin/Breast Denies pruritus, Denies lesions, Denies rash and Denies jaundice Neuro Reports Normal hearing present and Denies Abnormal speech present Endo Denies fatigue Aller/Immun Denies throat swelling and Denies tongue swelling Physical Exam Vital Signs: Last Vital Signs Pulse 68 09/25/23 08:37 BP 112/53 L 09/25/23 08:37 BMI result Body Mass Index 42.6 Const General: cooperative, no acute distress, well developed and well groomed Nutritional Appearance: well nourished and obese Orientation/consciousness: oriented to person, oriented to place and oriented to time Limitations: No language barrier HEENT Head: Yes normocephalic and Yes atraumatic Eyes General: appearance normal, both eyes and all related structures Pupils: Equal, round and reactive pupils present Neck Neck: Yes normal visual inspection and Yes no lymphadenopathy Thyroid: Thyroid normal Resp Effort & Inspection: normal respiratory effort and able to speak in complete sentences Auscultation: clear to auscultation bilaterally Cardio Rate: regular rate Rhythm: regular rhythm Heart sounds: Normal, physiologic split S2 sound present Peripheral pulses: radial pulses present and posterior tibial pulses present GI Inspection: No distended, No Abdominal panniculus present and Yes obesity Palpation (GI): Soft to palpation, nontender, no guarding, not rigid and No hepatosplenomegaly present Percussion: Yes normal to percussion Auscultation: normal bowel sounds Rectal Exam - Female: deferred Skin General skin exam: no rashes or lesions noted, turgor normal, skin not dry, no jaundice, No spider nevi and no striae Rashes: no rashes Nails: normal Neuro General: oriented to person, oriented to place and oriented to time Cranial nerves: Yes Equal, round and reactive pupils present and Yes Normal hearing present Speech: No Abnormal speech present Extrem General: Yes normal to inspection, No clubbing, No cyanosis and No edema Psych Appearance: grossly normal and well kempt Mental Status: mental status grossly normal Speech and movement: Normal speech and movement present Affect: normal affect Attitude: cooperative Thought process: Normal thought process present and not confabulating Thought content: Normal thought content present Insight: Fair insight present (Psych) Judgement: Fair judgement present (Psych) Assessment & Plan Assessment & Plan (1) GERD (gastroesophageal reflux disease): Code(s): K21.9 - Gastro-esophageal reflux disease without esophagitis (2) Constipation: Code(s): K59.00 - Constipation, unspecified Plan She speaks [place]. She is doing well trying to figure out a schedule for taking her Linzess and bisacodyl but right now she seems to have something that is working for her. The only problem is she has not got her Dexilant for this month. She only received a 30 day supply at her last refill when she was supposed to get 90 days. This sounds like a pharmacy error since her insurance companies telling her that they build them for 90 days and she can get a refill till October. We will try calling the pharmacy and in the meantime she will take famotidine twice a day. Return office visit in 6 months. Medications: Refilled dexlansoprazole 60 mg PO DAILY 90 caps 1RF K21.9 - Gastro-esophageal reflux disease without esophagitis, K63.89 - Other specified diseases of intestine, R14.0 - Abdominal distension (gaseous) famotidine 40 mg PO BID 90 days 180 tabs 2RF K21.9 - Gastro-esophageal reflux disease without esophagitis linaclotide (Linzess) 290 mcg PO QAM 30 days 30 caps 6RF K59.00 - Constipation, unspecified bisacodyl (Dulcolax (bisacodyl)) 15 mg (3 x 5 mg) PO BEDTIME 90 days 270 tabs 3RF constipation K59.00 - Constipation, unspecified metoclopramide HCl (Reglan) 10 mg PO QIDACHS 120 tabs 6RF R11.0 - Nausea, R14.0 - Abdominal distension (gaseous) simethicone (Anti-Gas Ultra Strength) 180 mg PO QID 30 days 120 caps 6RF R14.0 - Abdominal distension (gaseous) Coding Level of Care Code Est Pt Level 3 (33041) Diagnoses GERD (gastroesophageal reflux disease) K21.9 Constipation K59.00
[2023-09-25 08:37] VITALS: BP 112/53; PULSE 68; BMI 42.6
== END 2023-09-25 09:02 | disposition home or self-care (01) ==
PROVIDERS: PCP Nurse Practitioner Family; Visit Provider Nurse Practitioner
DX: K21.9 Gastro-esophageal reflux disease without esophagitis (principal); K59.00 Constipation, unspecified
CPT/HCPCS: 99213

== ENCOUNTER → 2023-09-25 08:23 | Outpatient (BNVA) | payer OTHER, SELFPAY | PROVIDERS: PCP Nurse Practitioner Family; Visit Provider Nurse Practitioner | DX: K21.9 Gastro-esophageal reflux disease without esophagitis (principal); K59.00 Constipation, unspecified | CPT/HCPCS: 99212 ==

== ENCOUNTER 2024-03-25 11:27 | Outpatient (AMB) | payer OTHER, SELFPAY ==
--- NOTE | 2024-03-25 11:33 | A.OFFVIS_ITS ---
Vital Signs 03/25/24 11:48 Height 5 ft Weight 216 lb 0.848 oz BMI 42.2 BP 110/60 Blood Pressure Location Lt brachial Position Sitting Intake Visit Reasons: 6 months follow up Intake Note: Patient is seen in office for 6 month follow up visit. 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 Required: No Accompanied by: Self / Same As Patient Allergies sumatriptan [From IMITREX] Allergy (Intermediate, Verified 03/25/24 11:48) RIGHT SIDED FACIAL NUMBNESS zolmitriptan [From ZOMIG] Allergy (Intermediate, Verified 03/25/24 11:48) PASSED OUT Medication List - Last Reconciled 03/25/24 by BETTINA Petty atorvastatin 1 tab PO DAILY azelastine 2 sprays intranasal BID baclofen 1 tab PO TID PRN bisacodyl (Dulcolax (bisacodyl)) 15 mg (3 x 5 mg) PO BEDTIME 90 days blood sugar diagnostic (FreeStyle Lite Strips) As directed cholecalciferol (vitamin D3) 125 mcg PO DAILY dapagliflozin propanediol (Farxiga) 1 tab PO DAILY dexlansoprazole 60 mg PO DAILY famotidine 40 mg PO BID 90 days lancets (FreeStyle Lancets) As directed levothyroxine (Synthroid) 1 tab PO DAILY linaclotide (Linzess) 290 mcg PO QAM 30 days lisinopril 20 mg PO DAILY metoclopramide HCl (Reglan) 10 mg PO QIDACHS pantoprazole (Protonix) 40 mg PO BID 30 days sertraline 100 mg PO DAILY simethicone (Anti-Gas Ultra Strength) 180 mg PO QID 30 days HPI HPI 6 months follow up: Details: Assessment & Plan (1) GERD (gastroesophageal reflux disease): Code(s): K21.9 - Gastro-esophageal reflux disease without esophagitis (2) Constipation: Code(s): K59.00 - Constipation, unspecified Plan She speaks Vietnamese. She is doing well trying to figure out a schedule for taking her Linzess and bisacodyl but right now she seems to have something that is working for her. The only problem is she has not got her Dexilant for this month. She only received a 30 day supply at her last refill when she was supposed to get 90 days. This sounds like a pharmacy error since her insurance companies telling her that they build them for 90 days and she can get a refill till October. We will try calling the pharmacy and in the meantime she will take famotidine twice a day. Return office visit in 6 months. Medications: Refilled dexlansoprazole 60 mg PO DAILY 90 caps 1RF K21.9 - Gastro-esophageal reflux disease without esophagitis, K63.89 - Other specified diseases of intestine, R14.0 - Abdominal distension (gaseous) famotidine 40 mg PO BID 90 days 180 tabs 2RF K21.9 - Gastro-esophageal reflux disease without esophagitis linaclotide (Linzess) 290 mcg PO QAM 30 days 30 caps 6RF K59.00 - Constipation, unspecified bisacodyl (Dulcolax (bisacodyl)) 15 mg (3 x 5 mg) PO BEDTIME 90 days 270 tabs 3RF constipation K59.00 - Constipation, unspecified metoclopramide HCl (Reglan) 10 mg PO QIDACHS 120 tabs 6RF R11.0 - Nausea, R14.0 - Abdominal distension (gaseous) simethicone (Anti-Gas Ultra Strength) 180 mg PO QID 30 days 120 caps 6RF R14.0 - Abdominal distension (gaseous) TODAY'S VISIT She speaks Vietnamese. She stop the Reglan because she was developing anxiety. This could be yurok anxiety but she also could have been having a reaction to this medication. Her primary care provider put her 1st on hydroxyzine and then on sertraline and trazodone. She was also having trouble sleeping. There is an interaction between the sertraline and the Reglan in that they potentiate each other so I think that this is only worsening the situation. What we will do to try to treat all of her symptoms and balance her medication regimen is reduce the dose of the metoclopramide to 5 mg just 3 times a day (skipping the before bed dose because the insomnia) and she can titrate this to try to get a good balance. If she wants to go down to just twice a day or if she even finds that she has to stop the medication, this is fine and we will try to deal with it. Since she has stopped it she has felt extremely bloated and has had trouble moving her bowels. At time she has had to take 3 the bisacodyl a day which is acceptable but also predictable because the metoclopramide helps promote bowel motility as well as stomach emptying. She also has the Linzess which she takes when she can around her work schedule. SHE STILL NOT GETTING HER DEXILANT! Apparently the pharmacy although they told us they would fill it last time she was here are now seeing eats a prior approval. Will try to get the prior approval and in the meantime I will give her pantoprazole take along with her famotidine although this is not likely sufficient to control her symptoms as we done this in the past. Because everything is quite out of balance for her right now I want to see her back in 4 weeks to see how she is reacting and also to make sure we have an end insight in terms of getting her back on her Dexilant. RETURN OFFICE VISIT IN 4 WEEKS. [facility] Medical History (Updated 03/25/24 @ 17:25 by BETTINA Petty) Small intestinal bacterial overgrowth IBS (irritable bowel syndrome) Depression Back pain Hypothyroid Diabetes mellitus Migraine HINA on CPAP High cholesterol Surgical History History of biopsy Hx of cholecystectomy Hx of esophagogastroduodenoscopy Hx of colonoscopy Family History Father Diabetes Mental health problem Mother HTN (hypertension) Heart problem Type 2 diabetes mellitus Brother Colon cancer Social History Household Members: Significant Other Alcohol intake: current Alcohol intake frequency: holidays/special occasions only Comment: Pt due for Amovig SQ injection today for [facility] Patient Tobacco Use Status: Never used Tobacco Current occupational status: employed 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 Review of Systems Const Denies fatigue, Denies fever(s), Denies night sweats, Denies poor appetite and Denies weight loss ENT Reports Normal hearing present, Denies dental pain, Denies dysphagia, Denies hearing loss, Denies mouth pain, Denies odynophagia, Denies throat swelling, Denies tongue swelling and Reports other (Dentition adequate) Card Reports no additional complaints Resp Reports no additional complaints GI Details: Reports abdominal pain, Denies melena, Reports bloating, Denies hematochezia, Reports constipation, Denies GI cramping, Denies dysphagia, Denies excessive flatus, Denies early satiety, Reports heartburn, Denies diarrhea, Reports na usea, Denies odynophagia, Denies vomiting and Denies hematemesis Skin/Breast Denies pruritus, Denies lesions, Denies rash and Denies jaundice Neuro Reports Normal hearing present and Denies Abnormal speech present Psych Reports anxiety Endo Denies fatigue Aller/Immun Denies throat swelling and Denies tongue swelling Physical Exam Vital Signs: Last Vital Signs BP 110/60 03/25/24 11:48 BMI result Body Mass Index 42.2 Const General: cooperative, no acute distress, well developed and well groomed Nutritional Appearance: well nourished and obese morbidly obese Orientation/consciousness: oriented to person, oriented to place and oriented to time Limitations: No language barrier HEENT Head: Yes normocephalic and Yes atraumatic Eyes General: appearance normal, both eyes and all related structures Pupils: Equal, round and reactive pupils present Neck Neck: Yes normal visual inspection and Yes no lymphadenopathy Thyroid: Thyroid normal Resp Effort & Inspection: normal respiratory effort and able to speak in complete sentences Auscultation: clear to auscultation bilaterally Cardio Rate: regular rate Rhythm: regular rhythm Heart sounds: Normal, physiologic split S2 sound present Peripheral pulses: radial pulses present and posterior tibial pulses present GI Inspection: No distended, Yes Abdominal panniculus present and Yes obesity Palpation (GI): Soft to palpation, nontender, no guarding, not rigid and No hepatosplenomegaly present Percussion: Yes normal to percussion Auscultation: normal bowel sounds Rectal Exam - Female: deferred Skin General skin exam: no rashes or lesions noted, turgor normal, skin not dry, no jaundice, No spider nevi and no striae Rashes: no rashes Nails: normal Neuro General: oriented to person, oriented to place and oriented to time Cranial nerves: Yes Equal, round and reactive pupils present and Yes Normal hearing present Speech: No Abnormal speech present Extrem General: Yes normal to inspection, No clubbing, No cyanosis and No edema Psych Appearance: grossly normal and well kempt Mental Status: mental status grossly normal Speech and movement: Normal speech and movement present Affect: normal affect Attitude: cooperative Thought process: Normal thought process present and not confabulating Thought content: Normal thought content present Insight: Limited insight present (Psych) Judgement: Limited judgement present (Psych) Assessment & Plan Assessment & Plan (1) Gastroparesis: Code(s): K31.84 - Gastroparesis Category: Medical (2) GERD (gastroesophageal reflux disease): Code(s): K21.9 - Gastro-esophageal reflux disease without esophagitis Category: Medical (3) Constipation: Code(s): K59.00 - Constipation, unspecified Category: Medical (4) Abdominal bloating: Code(s): R14.0 - Abdominal distension (gaseous) Category: Medical (5) Epigastric abdominal pain: Code(s): R10.13 - Epigastric pain Category: Medical (6) Nausea: Code(s): R11.0 - Nausea Category: Medical Plan She speaks Vietnamese. She stop the Reglan because she was developing anxiety. This could be yurok anxiety but she also could have been having a reaction to this medication. Her primary care provider put her 1st on hydroxyzine and then on sertraline and trazodone. She was also having trouble sleeping. There is an interaction between the sertraline and the Reglan in that they potentiate each other so I think that this is only worsening the situation. What we will do to try to treat all of her symptoms and balance her medication regimen is reduce the dose of the metoclopramide to 5 mg just 3 times a day (skipping the before bed dose because the insomnia) and she can titrate this to try to get a good balance. If she wants to go down to just twice a day or if she even finds that she has to stop the medication, this is fine and we will try to deal with it. Since she has stopped it she has felt extremely bloated and has had trouble mov ing her bowels. At time she has had to take 3 the bisacodyl a day which is acceptable but also predictable because the metoclopramide helps promote bowel motility as well as stomach emptying. She also has the Linzess which she takes when she can around her work schedule. SHE STILL NOT GETTING HER DEXILANT! Apparently the pharmacy although they told us they would fill it last time she was here are now seeing eats a prior approval. Will try to get the prior approval and in the meantime I will give her pantoprazole take along with her famotidine although this is not likely sufficient to control her symptoms as we done this in the past. Because everything is quite out of balance for her right now I want to see her back in 4 weeks to see how she is reacting and also to make sure we have an end insight in terms of getting her back on her Dexilant. RETURN OFFICE VISIT IN 4 WEEKS. Medications: New pantoprazole (Protonix) 40 mg PO BID 60 tabs 1RF 30 days metoclopramide HCl (Reglan) 5 mg PO TID 90 tabs 6RF K31.84 - Gastroparesis Discontinued metoclopramide HCl (Reglan) Discontinued Reason: Doctor's Order 10 mg PO QIDACHS 120 tabs 6RF R11.0 - Nausea, R14.0 - Abdominal distension (gaseous) Coding Level of Care Code Est Pt Level 4 (49175) Diagnoses Gastroparesis K31.84 GERD (gastroesophageal reflux disease) K21.9 Constipation K59.00 Abdominal bloating R14.0 Epigastric abdominal pain R10.13 Nausea R11.0 Time Spent (min) 33
[2024-03-25 11:48] VITALS: BP 110/60; BMI 42.2
== END 2024-03-25 12:00 | disposition home or self-care (01) ==
PROVIDERS: PCP Nurse Practitioner Family; Visit Provider Nurse Practitioner
DX: K31.84 Gastroparesis (principal); K21.9 Gastro-esophageal reflux disease without esophagitis; K59.00 Constipation, unspecified; R14.0 Abdominal distension (gaseous); R10.13 Epigastric pain; R11.0 Nausea
CPT/HCPCS: 99214

== ENCOUNTER → 2024-03-25 11:27 | Outpatient (BNVA) | payer OTHER, SELFPAY | PROVIDERS: PCP Nurse Practitioner Family; Visit Provider Nurse Practitioner | DX: K21.9 Gastro-esophageal reflux disease without esophagitis (principal); K59.00 Constipation, unspecified; K63.89 Other specified diseases of intestine; K31.84 Gastroparesis; R14.0 Abdominal distension (gaseous); R11.0 Nausea; R10.13 Epigastric pain | CPT/HCPCS: 99212 ==

== ENCOUNTER 2024-04-30 09:05 | Outpatient (AMB) | payer OTHER, SELFPAY ==
[2024-04-30 09:13] VITALS: BP 109/54; PULSE 65; BMI 44.3
--- NOTE | 2024-04-30 09:13 | A.OFFVIS_ITS ---
Vital Signs 04/30/24 09:13 Height 5 ft Weight 227 lb 1.218 oz BMI 44.3 BP 109/54 L Blood Pressure Location Lt brachial Position Sitting Pulse 65 Intake Visit Reasons: 4 weeks eval reduce reglan, CIC, paresis Intake Note: Patient presents to in office follow up of CIC. CC: Patient reports that she is back on the metoclopramide and she is doing better from constipation. Denies having any other GI symptoms. [employer] Required: No Accompanied by: Self / Same As Patient Allergies sumatriptan [From IMITREX] Allergy (Intermediate, Verified 04/30/24 09:24) RIGHT SIDED FACIAL NUMBNESS zolmitriptan [From ZOMIG] Allergy (Intermediate, Verified 04/30/24 09:24) PASSED OUT HPI HPI 4 weeks eval reduce reglan, CIC, paresis: Details: Assessment & Plan (1) Gastroparesis: Code(s): K31.84 - Gastroparesis Category: Medical (2) GERD (gastroesophageal reflux disease): Code(s): K21.9 - Gastro-esophageal reflux disease without esophagitis Category: Medical (3) Constipation: Code(s): K59.00 - Constipation, unspecified Category: Medical (4) Abdominal bloating: Code(s): R14.0 - Abdominal distension (gaseous) Category: Medical (5) Epigastric abdominal pain: Code(s): R10.13 - Epigastric pain Category: Medical (6) Nausea: Code(s): R11.0 - Nausea Category: Medical Plan She speaks [place]. She stop the Reglan because she was developing anxiety. This could be [place] anxiety but she also could have been having a reaction to this medication. Her primary care provider put her 1st on hydroxyzine and then on sertraline and trazodone. She was also having trouble sleeping. There is an interaction between the sertraline and the Reglan in that they potentiate each other so I think that this is only worsening the situation. What we will do to try to treat all of her symptoms and balance her medication regimen is reduce the dose of the metoclopramide to 5 mg just 3 times a day (skipping the before bed dose because the insomnia) and she can titrate this to try to get a good balance. If she wants to go down to just twice a day or if she even finds that she has to stop the medication, this is fine and we will try to deal with it. Since she has stopped it she has felt extremely bloated and has had trouble moving her bowels. At time she has had to take 3 the bisacodyl a day which is acceptable but also predictable because the metoclopramide helps promote bowel motility as well as stomach emptying. She also has the Linzess which she takes when she can around her work schedule. SHE STILL NOT GETTING HER DEXILANT! Apparently the pharmacy although they told us they would fill it last time she was here are now seeing eats a prior approval. Will try to get the prior approval and in the meantime I will give her pantoprazole take along with her famotidine although this is not likely sufficient to control her symptoms as we done this in the past. Because everything is quite out of balance for her right now I want to see her back in 4 weeks to see how she is reacting and also to make sure we have an end insight in terms of getting her back on her Dexilant. RETURN OFFICE VISIT IN 4 WEEKS. Medications: New pantoprazole (Protonix) 40 mg PO BID 60 tabs 1RF 30 days metoclopramide HCl (Reglan) 5 mg PO TID 90 tabs 6RF K31.84 - Gastroparesis Discontinued metoclopramide HCl (Reglan) Discontinued Reason: Doctor's Order 10 mg PO QIDACHS 120 tabs 6RF R11.0 - Nausea, R14.0 - Abdominal distension (gaseous) CORRESPONDENCE On 04/01/24 @ 12:50 Vannessa Dennis Wrote To Spoke to pharmacist and was informed that the brand name is covered by insurance. Pharmacy stated that they will order it today and should be ready for tomorrow. Patient notified. On 03/31/24 @ 15:52 Vannessa Dennis Wrote To Vannessa Dennis I called the pharmacy and LVM requesting call back. On 03/27/24 @ 08:46 Paul Cantu Wrote To Vannessa Dennis We received notice of PA not being needed by pt's insurance plan. We will have to call the pharmacy when able. If able to call, will update this note. On 03/26/24 @ 16:58 Vannessa Dennis Wrote To Vannessa Dennis PA submitted via CMM On 03/25/24 @ 11:48 Pippa Tang Wrote To Vannessa Dennis Her pharmacy is telling her she now needs a PA for the Dexilant - they never filled so she has not had it since October! Please do PA, I gave her a temporary supply of protonix and famotidine but this is not working well for her. TODAY'S VISIT She speaks [place]. She came down with bronchitis and is on prednisone. She was concerned that she gained 10 lbs, but I explain this is likely the prednisone.. She is taking the reglan at 5mg tid and tolerating it along with her dexilant. She is moving her bowels well. For now, she is satisfied with her GI regimen. ROV 6 mos. PFSH Medical History Small intestinal bacterial overgrowth IBS (irritable bowel syndrome) Depression Back pain Hypothyroid Diabetes mellitus Migraine HINA on CPAP High cholesterol Surgical History History of biopsy Hx of cholecystectomy Hx of esophagogastroduodenoscopy Hx of colonoscopy Family History Father Diabetes Mental health problem Mother HTN (hypertension) Heart problem Type 2 diabetes mellitus Brother Colon cancer Social History Household Members: Significant Other Alcohol intake: current Alcohol intake frequency: holidays/special occasions only Comment: Pt due for Amovig SQ injection today for [facility] Patient Tobacco Use Status: Never used Tobacco Current occupational status: employed 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 Review of Systems Const Denies fatigue, Denies fever(s), Denies night sweats, Denies poor appetite and Denies weight loss Eyes Details: glasses Reports requires corrective lenses ENT Reports Normal hearing present, Denies dental pain, Denies dysphagia, Denies hearing loss, Denies mouth pain, Denies odynophagia, Denies throat swelling, Denies tongue swelling and Reports other (Dentition adequate) Card Reports no additional complaints Resp Reports no additional complaints GI Details: Denies abdominal pain, Denies melena, Reports bloating, Denies hematochezia, Reports constipation, Denies GI cramping, Denies dysphagia, Denies excessive flatus, Reports early satiety, Reports heartburn, Denies diarrhea, Denies nausea, Denies odynophagia, Denies vomiting and Denies hematemesis Skin/Breast Denies pruritus, Denies lesions, Denies rash and Denies jaundice Neuro Reports Normal hearing present and Denies Abnormal speech present Endo Denies fatigue Aller/Immun Denies throat swelling and Denies tongue swelling Physical Exam Vital Signs: Last Vital Signs Pulse 65 04/30/24 09:13 BP 109/54 L 04/30/24 09:13 BMI result Body Mass Index 44.3 Const General: cooperative, no acute distress, well developed and well groomed Nutritional Appearance: well nourished and obese morbidly obese Orientation/consciousness: oriented to person, oriented to place and oriented to time Limitations: No language barrier HEENT Head: Yes normocephalic and Yes atraumatic Eyes General: appearance normal, both eyes and all related structures Pupils: Equal, round and reactive pupils present Neck Neck: Yes normal visual inspection and Yes no lymphadenopathy Thyroid: Thyroid normal Resp Effort & Inspection: normal respiratory effort and able to speak in complete sentences Auscultation: clear to auscultation bilaterally Cardio Rate: regular rate Rhythm: regular rhythm Heart sounds: Normal, physiologic split S2 sound present Peripheral pulses: radial pulses present and posterior tibial pulses present GI Inspection: No distended, Yes Abdominal panniculus present and Yes obesity Palpation (GI): Soft to palpation, nontender, no guarding, not rigid and No hepatosplenomegaly present Percussion: Yes normal to percussion Auscultation: normal bowel sounds Rectal Exam - Female: deferred Skin General skin exam: no rashes or lesions noted, turgor normal, skin not dry, no jaundice, No spider nevi and no striae Rashes: no rashes Nails: normal Neuro General: oriented to person, oriented to place and oriented to time Cranial nerves: Yes Equal, round and reactive pupils present and Yes Normal hearing present Speech: No Abnormal speech present Extrem General: Yes normal to inspection, No clubbing, No cyanosis and No edema Psych Appearance: grossly normal and well kempt Mental Status: mental status grossly normal Speech and movement: Normal speech and movement present Affect: normal affect Attitude: cooperative Thought process: Normal thought process present and not confabulating Thought content: Normal thought content present Insight: Limited insight present (Psych) Judgement: Limited judgement present (Psych) Assessment & Plan Assessment & Plan (1) Gastroparesis: Code(s): K31.84 - Gastroparesis Category: Medical (2) GERD (gastroesophageal reflux disease): Code(s): K21.9 - Gastro-esophageal reflux disease without esophagitis Category: Medical (3) Constipation: Code(s): K59.00 - Constipation, unspecified Category: Medical Plan She speaks [place]. She came down with bronchitis and is on prednisone. She was concerned that she gained 10 lbs, but I explain this is likely the prednisone.. She is taking the reglan at 5mg tid and tolerating it along with her dexilant. She is moving her bowels well. For now, she is satisfied with her GI regimen. ROV 6 mos. Medications: Refilled linaclotide (Linzess) 290 mcg PO QAM 30 caps 6RF 30 days K59.00 - Constipation, unspecified metoclopramide HCl (Reglan) 5 mg PO TID 90 tabs 6RF K31.84 - Gastroparesis Discontinued famotidine Discontinued Reason: Doctor's Order 40 mg PO BID 90 days 180 tabs 2RF K21.9 - Gastro-esophageal reflux disease without esophagitis pantoprazole Discontinued Reason: Doctor's Order 40 mg PO BID 30 days 60 tabs 1RF Coding Level of Care Code Est Pt Level 3 (71356) Diagnoses Gastroparesis K31.84 GERD (gastroesophageal reflux disease) K21.9 Constipation K59.00
== END 2024-04-30 10:11 | disposition home or self-care (01) ==
PROVIDERS: PCP Nurse Practitioner Family; Visit Provider Nurse Practitioner
DX: K31.84 Gastroparesis (principal); K21.9 Gastro-esophageal reflux disease without esophagitis; K59.00 Constipation, unspecified
CPT/HCPCS: 99213

== ENCOUNTER → 2024-04-30 09:05 | Outpatient (BNVA) | payer OTHER, SELFPAY | PROVIDERS: PCP Nurse Practitioner Family; Visit Provider Nurse Practitioner | DX: K59.04 Chronic idiopathic constipation (principal); K31.84 Gastroparesis; K21.9 Gastro-esophageal reflux disease without esophagitis | CPT/HCPCS: 99212 ==

== ENCOUNTER 2024-11-05 08:34 | Outpatient (AMB) | payer OTHER, SELFPAY ==
[2024-11-05 09:04] VITALS: BP 114/48; PULSE 65; BMI 45.7
--- NOTE | 2024-11-05 09:04 | MHC.OFFVIS ---
Vital Signs 11/05/24 09:04 Height 5 ft Weight 234 lb BMI 45.7 BP 114/48 L Blood Pressure Location Lt brachial Position Sitting Pulse 65 Intake Visit Reasons: paresis, GERD Intake Note: Dunia presents in follow up of GERD and paresis. CC: Patient reports that she always feel very bloated. Per patient her GERD and CIC are under control with condition.l [employer]oldering Machine [employer] Required: No Soldering Machine Feeder Services: Soldering Machine Feeder Offered & Declined Accompanied by: Self / Same As Patient Allergies sumatriptan [From IMITREX] Allergy (Intermediate, Verified 11/05/24 09:11) RIGHT SIDED FACIAL NUMBNESS zolmitriptan [From ZOMIG] Allergy (Intermediate, Verified 11/05/24 09:11) PASSED OUT HPI HPI paresis, GERD: Details: Assessment & Plan (1) Gastroparesis: Code(s): K31.84 - Gastroparesis Category: Medical (2) GERD (gastroesophageal reflux disease): Code(s): K21.9 - Gastro-esophageal reflux disease without esophagitis Category: Medical (3) Constipation: Code(s): K59.00 - Constipation, unspecified Category: Medical Plan She speaks [place]. She came down with bronchitis and is on prednisone. She was concerned that she gained 10 lbs, but I explain this is likely the prednisone.. She is taking the reglan at 5mg tid and tolerating it along with her dexilant. She is moving her bowels well. For now, she is satisfied with her GI regimen. ROV 6 mos. Medications: Refilled linaclotide (Linzess) 290 mcg PO QAM 30 caps 6RF 30 days K59.00 - Constipation, unspecified metoclopramide HCl (Reglan) 5 mg PO TID 90 tabs 6RF K31.84 - Gastroparesis Discontinued famotidine Discontinued Reason: Doctor's Order, 40 mg PO BID 90 days 180 tabs 2RF K21.9 - Gastro-esophageal reflux disease without esophagitis pantoprazole Discontinued Reason: Doctor's Order 40 mg PO BID 30 days 60 tabs 1RF TODAY'S VISIT She speaks [place]. Her mother has been quite ill with cardiac problems and this is effecting her stooling. She is feeling extremely bloated even when she does not eat. She does feel that she is having incomplete evacuation of stool and she takes her Linzess and bisacodyl but again she only takes the Linzess on the weekends because she is fearful of having to move her bowels too often when she is at work. She is only taking 1 bisacodyl at night so I suggest she try increasing it to 2 to see if she can have better comfort. She continues on her Dexilant simethicone and Reglan 5 mg 3 times a day. She asks about her famotidine saying it was discontinued, but she is not having any trouble with GERD since she is on the Dexilant so I explained to her I am simply trying to minimize her pill burden and she understands and says she really does not need it for any breakthrough. We can always revisit this if it becomes a problem in the future. Return office visit in 3 months. Hopefully when things settle down her GI system will also even out again. [facility] Medical History Small intestinal bacterial overgrowth IBS (irritable bowel syndrome) Depression Back pain Hypothyroid Diabetes mellitus Migraine HINA on CPAP High cholesterol Surgical History History of biopsy Hx of cholecystectomy Hx of esophagogastroduodenoscopy Hx of colonoscopy Family History Father Diabetes Mental health problem Mother HTN (hypertension) Heart problem Type 2 diabetes mellitus Brother Colon cancer Social History Household Members: Significant Other Alcohol intake: current Alcohol intake frequency: holidays/special occasions only Comment: Pt due for Amovig SQ injection today for [facility] Patient Tobacco Use Status: Never used Tobacco Current occupational status: employed 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 Review of Systems Const Denies fatigue, Denies fever(s), Denies night sweats, Denies poor appetite and Denies weight loss ENT Reports Normal hearing present, Denies dental pain, Denies dysphagia, Denies hearing loss, Denies mouth pain, Denies odynophagia, Denies throat swelling, Denies tongue swelling and Reports other (Dentition adequate) Card Reports no additional complaints Resp Reports no additional complaints GI Details: Denies abdominal pain, Denies melena, Reports bloating, Denies hematochezia, Reports constipation, Denies GI cramping, Denies dysphagia, Denies excessive flatus, Denies early satiety, Reports heartburn, Denies diarrhea, Denies nausea, Denies odynophagia, Denies vomiting and Denies hematemesis Skin/Breast Denies pruritus, Denies lesions, Denies rash and Denies jaundice Neuro Reports Normal hearing present and Denies Abnormal speech present Endo Denies fatigue Aller/Immun Denies throat swelling and Denies tongue swelling Physical Exam Vital Signs: Last Vital Signs Pulse 65 11/05/24 09:04 BP 114/48 L 11/05/24 09:04 BMI result Body Mass Index 45.7 Const General: cooperative, no acute distress, well developed and well groomed Nutritional Appearance: well nourished and obese Orientation/consciousness: oriented to person, oriented to place and oriented to time Limitations: No language barrier HEENT Head: Yes normocephalic and Yes atraumatic Eyes General: appearance normal, both eyes and all related structures Pupils: Equal, round and reactive pupils present Neck Neck: Yes normal visual inspection and Yes no lymphadenopathy Thyroid: Thyroid normal Resp Effort & Inspection: normal respiratory effort and able to speak in complete sentences Auscultation: clear to auscultation bilaterally Cardio Rate: regular rate Rhythm: regular rhythm Heart sounds: Normal, physiologic split S2 sound present Peripheral pulses: radial pulses present and posterior tibial pulses present GI Inspection: Yes distended, Yes Abdominal panniculus present and Yes obesity Palpation (GI): Soft to palpation, nontender, no guarding, not rigid and No hepatosplenomegaly present Percussion: Yes normal to percussion Auscultation: normal bowel sounds Rectal Exam - Female: deferred Skin General skin exam: no rashes or lesions noted, turgor normal, skin not dry, no jaundice, No spider nevi and no striae Rashes: no rashes Nails: normal Neuro General: oriented to person, oriented to place and oriented to time Cranial nerves: Yes Equal, round and reactive pupils present and Yes Normal hearing present Speech: No Abnormal speech present Extrem General: Yes normal to inspection, No clubbing, No cyanosis and No edema Psych Appearance: grossly normal and well kempt Mental Status: mental status grossly normal Speech and movement: Normal speech and movement present Affect: normal affect Attitude: cooperative Thought process: Normal thought process present and not confabulating Thought content: Normal thought content present Insight: Good insight present (Psych) Judgement: Good judgement present (Psych) Assessment & Plan Assessment & Plan (1) GERD (gastroesophageal reflux disease): Code(s): K21.9 - Gastro-esophageal reflux disease without esophagitis Category: Medical (2) Constipation: Code(s): K59.00 - Constipation, unspecified Category: Medical (3) Gastroparesis: Code(s): K31.84 - Gastroparesis Category: Medical Plan She speaks [place]. Her mother has been quite ill with cardiac problems and this is effecting her stooling. She is feeling extremely bloated even when she does not eat. She does feel that she is having incomplete evacuation of stool and she takes her Linzess and bisacodyl but again she only takes the Linzess on the weekends because she is fearful of having to move her bowels too often when she is at work. She is only taking 1 bisacodyl at night so I suggest she try increasing it to 2 to see if she can have better comfort. She continues on her Dexilant simethicone and Reglan 5 mg 3 times a day. She asks about her famotidine saying it was discontinued, but she is not having any trouble with GERD since she is on the Dexilant so I explained to her I am simply trying to minimize her pill burden and she understands and says she really does not need it for any breakthrough. We can always revisit this if it becomes a problem in the future. Return office visit in 3 months. Hopefully when things settle down her GI system will also even out again Medications: Refilled metoclopramide HCl (Reglan) 5 mg PO TID 90 tabs 6RF K31.84 - Gastroparesis linaclotide (Linzess) 290 mcg PO QAM 30 days 30 caps 6RF K59.00 - Constipation, unspecified dexlansoprazole 60 mg PO DAILY 90 caps 1RF K21.9 - Gastro-esophageal reflux disease without esophagitis, K63.89 - Other specified diseases of intestine, R14.0 - Abdominal distension (gaseous) simethicone 180 mg PO QID 120 caps 6RF R14.0 - Abdominal distension (gaseous) bisacodyl (Dulcolax (bisacodyl)) 15 mg (3 x 5 mg) PO BEDTIME 90 days 270 tabs 3RF constipation K59.00 - Constipation, unspecified Coding Level of Care Code Est Pt Level 3 (20731) Diagnoses GERD (gastroesophageal reflux disease) K21.9 Constipation K59.00 Gastroparesis K31.84
--- OUTSIDE RECORDS SUMMARY | 2024-11-05 09:06 | XMS_ITS | Continuity of Care Document ---
Author Organization [facility] Address [address] [place] [address] Edgardo dennis, [address] [place] [address]- Care Team Providers Care Associate Director Of Development Name Role Phone Navi TAYLOR, Venus Primary Care Physician Encounter [facility] Date(s): 10/05/24 - 11/04/24 [facility] [address] [place] [address] Drive [address] [place], [place] [address] Encounter Type: Triage Allergies, Adverse Reactions, Alerts Substance Criticality Severity Reaction Reaction Severity Status Zomig Active Imitrex Active Immunizations Given and Recorded Vaccine Date Status Refusal Reason influenza virus vaccine, inactivated 07/07/24 Zhou rded influenza virus vaccine, inactivated 1 05/28/23 Gi braeden influenza virus vaccine, inactivated 04/30/22 Zhou rded influenza virus vaccine, inactivated 06/18/21 Zhou rded SARS-CoV-2 (COVID-19) mRNA-1273 vaccine 11/18/21 R ecorded SARS-CoV-2 (COVID-19) mRNA-1273 vaccine 04/09/21 R ecorded SARS-CoV-2 (COVID-19) mRNA-1273 vaccine 03/12/21 R ecorded Influenza Virus Vaccine (oldterm) 06/30/20 Recorde d tetanus/diphtheria/pertussis, acel(Tdap) 01/25/18 Given 1Result Comment: [facility] [id number] Medications Aerochamber See Instructions, # 1 each, Maintenance, Use as directed with all inhalors. Dx: acute bronchitis with bronchospasm, 04/27/24 5:59:00 PM EDT, Supply, 165.2, cm, 04/27/24 17:05:00 EDT, Height Start Date: 04/27/24 Status: Ordered Quantity: 1.0 Unit: each Repeat number: 1 albuterol CFC free 90 mcg/inh inhalation aerosol 2, puffs, Inhalation, Every 4 hours, PRN, # 1 each, Refills 0, Tot. Refills 0, Maintenance, :41:00 PM EDT, Route to Pharmacy Electronically, [id number], [id number] My dispense any covered albuterol MDI, 165.2, cm, 04/27/24 17:05:00 EDT, Height Start Date: 04/27/24 Stop Date: 05/27/24 Status: Ordered Quantity: 1.0 Unit: each Repeat number: 1 atorvastatin 10 mg oral tablet 1 tablet, By Mouth, Daily, # 90 tablet, 1 Refills, Maintenance, 09/10/24 8:31:00 PM EST, [facility]/pharmacy #[id number], 165.2, cm, 08/10/24 13:56:00 EST, Height Start Date: 09/10/24 Status: Ordered Quantity: 90.0 Unit: tablet Repeat number: 2 dapagliflozin 5 mg oral tablet 1 tablet, By Mouth, Daily, # 90 tablet, 1 Refills, Maintenance, 08/04/24 5:13:00 PM EST, [facility] ST[facility], 165.2, cm, 04/27/24 17:05:00 EDT, Height Start Date: 08/04/24 Status: Ordered Quantity: 90.0 Unit: tablet Repeat number: 1 Dexilant 60 mg oral delayed release capsule 1 capsule = 60 mg, By Mouth, Daily, # 30 capsule, 0 Refills, Maintenance, 04/05/21 8:18:00 AM EDT, EC Capsule, Partial fill upon patient request if the prescription is for a schedule II opioid drug. Start Date: 04/05/21 Status: Ordered Quantity: 30.0 Unit: capsule Repeat number: 1 fluticasone 50 mcg/inh nasal spray 1 sprays = 50 mcg, Nares, Both, 2 times a day, # 16 Gm, 0 Refills, Maintenance, 07/11/23 2:03:00 PMEST, [place], [facility]/pharmacy #[id number], Partial fill upon patient request if the prescription is for a schedule II opioid drug., 1 sprays Nares, Both 2 times a day, 164, cm, 05/28/23 7:42:00 EDT, Height Start Date: 07/11/23 Status: Ordered Quantity: 16.0 Unit: g Repeat number: 1 FREESTYLE 28G LANCETS FREESTYLE 28G LANCETS, See Instructions, # 100 Unknown, 2 Refills, Maintenance, DX E11.9 USE TO TEST BLOOD SUGARES TWICE DAILY, 04/21/24 7:35:00 AM EDT, 165.2, cm, 11/26/23 9:22:00 EDT, Height Start Date: 04/21/24 Status: Ordered Quantity: 100.0 Unit: Unknown Repeat number: 1 Freestyle Lancets See Instructions, # 100 each, Refills 2, Tot. Refills 2, Maintenance, DX E11.9 Use to test blood sugares twice daily, 12/27/23 11:25:00 AM EDT, Supply, 165.2, cm, 11/26/23 9:22:00 EDT, Height Start Date: 12/27/23 Status: Ordered Quantity: 100.0 Unit: each Repeat number: 3 Freestyle Lite Test Strips See Instructions, # 100 each, Refills 7, Tot. Refills 7, Maintenance, DX E11.9 Use to test bloos sugars twice daily., 12/27/23 12:41:00 PM EDT, Supply, 165.2, cm, 11/26/23 9:22:00 EDT, Height Start Date: 12/27/23 Status: Ordered Quantity: 100.0 Unit: each Repeat number: 8 levothyroxine 75 mcg (0.075 mg) oral tablet 1 tablet = 75 mcg, By Mouth, Daily, # 60 tablet, 1 Refills, Maintenance, 08/14/24 1:43:00 PM EST, Tablet, [facility] #[id number], Partial fill upon patient request if the prescription is for a schedule II opioid drug., 165.2, cm, 08/10/24 13:56:00 EST, Height Start Date: 08/14/24 Status: Ordered Quantity: 60.0 Unit: tablet Repeat number: 2 Indication: Hypothyroidism, unspecified Linzess 72 mcg oral capsule 2 capsule = 144 mcg, By Mouth, Daily, do not crush or chew, # 30 capsule, 0 Refills, Maintenance, 07/04/20 8:20:00 AM EST, Capsule, Partial fill upon patient request Start Date: 07/04/20 Status: Ordered Quantity: 30.0 Unit: capsule Repeat number: 1 lisinopril 20 mg oral tablet 1, tablet, By Mouth, Daily, # 90 tablet, Refills 1, Tot. Refills 1, Maintenance, 09/10/24 8:33:00 PMEST, Route to Pharmacy Electronically, [facility]pharm[facility] #[id number], 165.2, cm, 08/10/24 13:56:00 EST, Height Start Date: 09/10/24 Status: Ordered Quantity: 90.0 Unit: tablet Repeat number: 2 naproxen 500 mg oral tablet 1 tablet, By Mouth, 2 times a day, # 60 tablet, 0 Refills, Maintenance, 07/06/24 3:43:00 PM EST, [facility], 165.2, cm, 04/27/24 17:05:00 EDT, Height Start Date: 07/06/24 Stop Date: 08/05/24 Status: Ordered Quantity: 60.0 Unit: tablet Repeat number: 1 sertraline 100 mg oral tablet 1 tablet, By Mouth, Daily, # 90 tablet, 0 Refills, Maintenance, 09/03/24 8:49:00 PM EST, [id number], 165.2, cm, 08/10/24 13:56:00 EST, Height Start Date: 09/03/24 Status: Ordered Quantity: 90.0 Unit: tablet Repeat number: 1 VITAMIN D3 5,000 UNIT SOFTGEL VITAMIN D3 5,000 UNIT SOFTGEL, 1, capsule, By Mouth, Daily, # 90 capsule, 0 Refills, Maintenance, 08/19/23 7:35:00 AM EST, 164, cm, 05/28/23 7:42:00 EDT, Height Start Date: 08/19/23 Status: Ordered Quantity: 90.0 Unit: capsule Repeat number: 1 Vitamin D3 5000 intl units oral capsule 1 capsule, By Mouth, Daily, # 90 capsule, 2 Refills, Maintenance, 08/25/24 1:01:00 PM EST, [id number], 165.2, cm, 08/10/24 13:56:00 EST, Height Start Date: 08/25/24 Status: Ordered Quantity: 90.0 Unit: capsule Repeat number: 1 Problem List Condition Confirmation Course Effective Dates Status Health Status Informant Anxiety Confirmed Active Chronic low back pain Confirmed Active Diabetes mellitus Confirmed Active Diffuse alopecia areata Confirmed Active Dyspnea Confirmed Active OSIEL (generalized anxiety disorder) Confirmed Active Lincoln's thyroiditis Confirmed Active Hypercalcemia Confirmed Active HLD (hyperlipidemia) Confirmed Active Hyperparathyroidism Confirmed Active Hypothyroidism Confirmed Active Insomnia Confirmed Active IBS (irritable bowel syndrome) Confirmed Active Migraines Confirmed Active MDD (major depressive disorder), single episode, moderate Confirmed Active Multiple thyroid nodules 1 Confirmed 06/09/21 Active Fatty liver disease, nonalcoholic Confirmed Active Panic disorder Confirmed Active Herniated lumbar intervertebral disc Confirmed Active Severe obesity (BMI 35.0-39.9) with comorbidity Confirmed Active Snoring Confirmed Active Lumbar spinal stenosis Confirmed Active Chronic migraine Confirmed Active Vitamin D deficiency Confirmed Active 1US/FNA 05/2921. US in 18 months, then q 2 years. Refer endocrine if volume increased by 50% Social History Social History Type Response Smoking Status Never smoker entered on: 02/11/18 Sex Sex Representation Female (finding) Patient Care team information Care Team Personnel Name: Venus Mcelroy NP Position: [facility] PCO Associate Professional Member Role: PCP Address: [address] [place] [address] Telecom: Name: Joana Gillespie RN Position: [facility] RN Member Role: Primary Care Nurse Care Team Related Persons Name: ALEJANDRO BARRERA Name: SALOMON SLADE Insurance Providers Guarantor name: HELLEN SLADE Health Plan Information #: 1 Payer: [facility] Member Number: NA Policy Number: NA Group Number: NA
--- OUTSIDE RECORDS SUMMARY | 2024-11-05 09:06 | XMS_ITS | Continuity of Care Document ---
Author Organization [facility] Address [address] [place] [address]- Care Team Providers Care Power Switchboard Operator Name Role Phone Navi TAYLOR, Venus Primary Care Physician [phone] Encounter [facility] Date(s): 09/09/24 - 10/09/24 [facility] [address] [place] [address] Encounter Type: Triage Allergies, Adverse Reactions, Alerts [...] d tetanus/diphtheria/pertussis, acel(Tdap) 01/25/18 Given 1Result Comment: [facility] [id number] Medications Aerochamber See Instructions, # 1 each, [...] each, Refills 0, Tot. Refills 0, Maintenance, 245:41:00 PM EDT, Route to Pharmacy Electronically, [id number], [facility]/pharmacy #[id number], My dispense any covered albuterol MDI, 165.2, cm, 04/27/24 17:05:00 EDT, Height Start Date: 04/27/24 Stop Date: 05/27/24 Status: Ordered Quantity: 1.0 Unit: each Repeat number: 1 atorvastatin 10 mg oral tablet 1 tablet, By Mouth, Daily, # 90 tablet, 1 Refills, Maintenance, 09/10/24 8:31:00 PM EST, [facility]/pharmacy #[id number], 165.2, cm, 08/10/24 13:56:00 EST, Height Start Date: 09/10/24 Status: Ordered Quantity: 90.0 Unit: tablet Repeat number: 2 bisacodyl 5 mg oral delayed release tablet 270 each, 0 Refill(s), TAKE 3 TABLETS ORALLY BEDTIME FOR CONSTIPATION FOR 90 DAYS, 0 Refills, 09/22/24 10:22:00 AM EST, Partial fill upon patient request if the prescription is for a schedule II opioid drug. Start Date: 09/22/24 Status: Ordered Repeat number: 1 dapagliflozin 5 mg oral tablet 1 tablet, By Mouth, Daily, # 90 tablet, 1 Refills, Maintenance, 08/04/24 5:13:00 PM EST, [facility] STORE 53562, 165.2, cm, 04/27/24 17:05:00 EDT, Height Start [...] Gm, 0 Refills, Maintenance, 07/11/23 2:03:00 PME[facility], [place], [facility]/pharmacy #[id number], Partial fill upon patient request if [...] Refills, Maintenance, 08/14/24 1:43:00 PM EST, Tablet, [facility]/pharmacy #[id number], Partial fill upon patient request if [...] 09/10/24 8:33:00 PMEST, Route to Pharmacy Electronically, [facility]/pharmacy #[id number], 165.2, cm, 08/10/24 13:56:00 EST, Height Start Date: 09/10/24 Status: Ordered Quantity: 90.0 Unit: tablet Repeat number: 2 naproxen 500 mg oral tablet 1 tablet, By Mouth, 2 times a day, # 60 tablet, 0 Refills, Maintenance, 07/06/24 3:43:00 PM EST, [facility], 165.2, cm, 04/27/24 17:05:00 EDT, Height Start Date: 07/06/24 Stop Date: 08/05/24 Status: Ordered Quantity: 60.0 Unit: tablet Repeat number: 1 sertraline 100 mg oral tablet 1 tablet, By Mouth, Daily, # 90 tablet, 0 Refills, Maintenance, 09/03/24 8:49:00 PM EST, [facility] 88352, 165.2, cm, 08/10/24 13:56:00 EST, Height Start [...] Refills, Maintenance, 08/25/24 1:01:00 PM EST, [id number], 165.2, cm, 08/10/24 13:56:00 EST, Height Start [...] Team Personnel Name: Venus Mcelroy NP Position: [facility] PCO Associate Professional Member Role: PCP Address: [address] [place] [address] Telecom: Name: Joana Gillespie RN Position: [facility] RN Member Role: Primary Care Nurse Care Team Related Persons Name: ALEJANDRO BARRERA Name: SALOMON SLADE Insurance Providers Guarantor name: HELLEN SLADE Health Plan Information #: 1 Payer: [facility] Member Number: NA Policy Number: NA Group Number: NA
--- OUTSIDE RECORDS SUMMARY | 2024-11-05 09:06 | XMS_ITS | Clinical Summary ---
Author Organization [facility] Address [address] [place] [address] Care Team Providers Care Machine Oiler Name Role Phone Michael Butler MD Primary Care Provider [phone] Social History Tobacco Use Types Packs/Day Years Used Date Smoking Tobacco: Never Smokeless Tobacco: Never Alcohol Use Standard Drinks/Week Comments No 0 (1 standard drink = 0.6 oz pur e alcohol) Comments Unknown Sex and Gender Information Value Date Recorded Sex Assigned at Not on file Legal Sex Female 1:18 AM EST Gender Identity Not on file Sexual Orientation Not on file Obstetrics History Last Filed Vital Signs Vital Sign Reading Time Taken Comments Blood Pressure 104/64 10/26/2022 2:54 PM EDT Pulse 52 10/26/2022 2:54 PM EDT Temperature - - Respiratory Rate - - Oxygen Saturation - - Inhaled Oxygen Concentration - - Weight - - Height 165.1 cm (5' 5 ) 10/26/2022 2:54 PM EDT Body Mass Index - - Plan of Treatment Health Maintenance Due Date Last Done Comments DTaP,Tdap,and Td Vaccines (1 - Tdap) 1997 Hepatitis B Vaccines (1 of 3 - 19+ 3-dose series) 1997 Cervical Cancer Screening: P ap Smear 1999 Colorectal Cancer Screening: Colonoscopy 07/15/2022 Depression Screening 07/15/2022 HIV Screening 07/15/2022 Hepatitis C Screening 07/15/2022 Social Influencers of Health Screening 07/15/2022 Breast Cancer Screening 10/21/2022 10/22/19 21, 10/17/2019, 10/09/2018 COVID-19 Vaccine ( - 2023-2 5 season) 2024 Influenza Vaccine (#1) 2024 HIB Vaccines Aged Out No longer eligi ble based on patient's age to complete this topic HPV Vaccines Aged Out No longer eligi ble based on patient's age to complete this topic Hepatitis A Vaccines Aged Out No long er eligible based on patient's age to complete this topic IPV Vaccines Aged Out No longer eligi ble based on patient's age to complete this topic MMR Vaccines Aged Out No longer eligi ble based on patient's age to complete this topic Meningococcal ACWY Vaccine Aged Out N o longer eligible based on patient's age to complete this topic Meningococcal B Vacine Aged Out No lo nger eligible based on patient's age to complete this topic Pneumococcal Vaccine: Pediatrics (0 to 5 Years) and At-Risk Patients (6 to 64 Years) Aged Out No longer eligible b ased on patient's age to complete this topic RSV Immunization Patients Under 20 months Aged Out No longer eligible b ased on patient's age to complete this topic Varicella Vaccines Aged Out No longer eligible based on patient's age to complete this topic Procedures Procedure Name Priority Date/Time Associated Diagnosis Comments [facility] SCREENING DIGITAL Routine 10/21/2020 4:30 PM EST Encounter for screening mammogram for malignant neoplasm of breast from Last 3 Months or Most Recently Relevant to Health Maintenance Results * [facility] SCREENING DIGITAL (10/21/2020 4:30 PM EST) Anatomical Region Laterality Modality Mammography 10/21/2020 3:16 PM EST Narrative 10/21/2020 4:[address] [facility] Diagnostic Imaging Department [address] [place], [place] [address] Patient: ??DUNIA SLADE Y ?/Age/Sex: 1980 - - Unit#: ??[id number] ? Location/Status: ??SPDIMAM/REG CLI ? Mnemonic/Ordering Site: ??DIGSC/SPMAM Ordering Physician: ??EDY CHAPMAN DRESS CUTTER [place] Screening Digital - 10/21/20 - 1546 EXAM: [facility] Screening Digital EXAM DATE AND TIME: 10/21/2020 3:47 PM HISTORY: ??Annual screening mammography. COMPARISON: ??10/16/2022 10/04/2016 TECHNIQUE: CC and MLO views of both breasts were obtained using full field digital mammography. Bilateral digital breast tomosynthesis was performed in the MLO projection. Computer aided detection with the Heyo 7.2-H was employed. TISSUE DENSITY: b. There are scattered areas of fibroglandular density. FINDINGS: No suspicious masses, grouped microcalcifications, or areas of architectural distortion are seen. The skin and vascularity are unremarkable. IMPRESSION: Stable mammographic appearance of the breasts. ??No evidence of malignancy is seen. A negative mammogram in the presence of a clinically suspicious palpable abnormality does not preclude the possibility of malignancy or alter the indications for biopsy. BI-RADS: ??Category 1: Negative RECOMMENDATION(S): 1: Routine screening mammogram BILATERAL in 1 year. [address], [address] 3341F, 7025F Dictating Physician: ??FRANCIS HERNANDEZ MD Electronically Signed by: ??FRANCIS HERNANDEZ MD Dic Date/Time: ??10/21/20 1628 Sign date/Time: ??10/21/20 1630 Procedure Note Anahy Hernandez MD - 07/31/2022 [facility] Diagnostic Imaging Department [address] [place] [address] Patient: DUNIA SLADE /Age/Sex: 1980 - 40 - F Unit#: [id number] Location/Status: SPDIMAM/REG CLI Mnemonic/Ordering Site: [facility] Ordering Physician: EDY CHAPMAN NP [facility] Screening Digital - 10/21/20 - 1546 EXAM: [facility] Screening Digital EXAM DATE AND TIME: 10/21/2020 3:47 PM HISTORY: Annual screening mammography. COMPARISON: 10/16/2022 10/04/2016 TECHNIQUE: CC and MLO views of both breasts were obtained using fullfield digital mammography. Bilateral digital breast tomosynthesis was performedin the MLO projection. Computer aided detection with the Heyo 7.2-[employer] employed. TISSUE DENSITY: b. There are scattered areas of fibroglandular density. FINDINGS: No suspicious masses, grouped microcalcifications, or areas ofarchitectural distortion are seen. The skin and vascularity are unremarkable. IMPRESSION: Stable mammographic appearance of the breasts. No evidence of malignancyis seen. A negative mammogram in the presence of a clinically suspicious palpable abnormality does not preclude the possibility of malignancy or alter the indications for biopsy. BI-RADS: Category 1: Negative RECOMMENDATION(S): 1: Routine screening mammogram BILATERAL in 1 year. 92998, [address] 3341F, 7025F Dictating Physician: FRANCIS HERNANDEZ MD Electronically Signed by: FRANCIS HERNANDEZ MD Dic Date/Time: 10/21/20 1628 Sign date/Time: 10/21/20 163 us Edy Chapman DRESS CUTTER IMG BI PROCEDURES Final Resu lt from Last 3 Months or Most Recently Relevant to Health Maintenance Care Teams Machine Oiler Relationship Specialty Start Date End Date Michael Butler MD [address] [place] [address] PCP - General Internal Medicine 08/15/21
--- OUTSIDE RECORDS SUMMARY | 2024-11-05 09:06 | XMS_ITS | Continuity of Care Document ---
Author Organization [facility] Address [address] [place] [address] [address] [place] [address]- Care Team Providers Care Confidential Secretary Name Role Phone Navi TAYLOR, Venus Primary Care Physician [phone] Encounter [facility] Date(s): 10/27/24 - 11/03/[address] [place], [place] [address] Attending Physician: Mayur Clay MD Referring Physician: Venus Mcelroy NP Encounter Type: Office Visit Allergies, Adverse Reactions, Alerts Substance Criticality Severity [...] d tetanus/diphtheria/pertussis, acel(Tdap) 01/25/18 Given 1Result Comment: [facility] [id number] Medications Aerochamber See Instructions, # 1 each, [...] :41:00 PM EDT, Route to Pharmacy Electronically, [id number], [id number] My dispense any covered albuterol MDI, 165.2, cm, 04/27/24 17:05:00 EDT, Height Start Date: 04/27/24 Stop Date: 05/27/24 Status: Ordered Quantity: 1.0 Unit: each Repeat number: 1 atorvastatin 10 mg oral tablet 1 tablet, By Mouth, Daily, # 90 tablet, 1 Refills, Maintenance, 09/10/24 8:31:00 PM EST, [facility]/pharmacy #[id number], 165.2, cm, 08/10/24 13:56:00 EST, Height Start Date: 09/10/24 Status: Ordered Quantity: 90.0 Unit: tablet Repeat number: 2 dapagliflozin 5 mg oral tablet 1 tablet, By Mouth, Daily, # 90 tablet, 1 Refills, Maintenance, 08/04/24 5:13:00 PM EST, [facility] STORE 46535, 165.2, cm, 04/27/24 17:05:00 EDT, Height Start [...] Gm, 0 Refills, Maintenance, 07/11/23 2:03:00 PMEST, [place], [facility]/pharmacy #[id number], Partial fill upon patient request if [...] Refills, Maintenance, 08/14/24 1:43:00 PM EST, Tablet, [facility]/pharmacy #[id number], Partial fill upon patient request if [...] 09/10/24 8:33:00 PMEST, Route to Pharmacy Electronically, [facility]/pharmacy #[id number], 165.2, cm, 08/10/24 13:56:00 EST, Height Start Date: 09/10/24 Status: Ordered Quantity: 90.0 Unit: tablet Repeat number: 2 naproxen 500 mg oral tablet 1 tablet, By Mouth, 2 times a day, # 60 tablet, 0 Refills, Maintenance, 07/06/24 3:43:00 PM EST, [facility] ST[facility] 24529, 165.2, cm, 04/27/24 17:05:00 EDT, Height Start Date: 07/06/24 Stop Date: 08/05/24 Status: Ordered Quantity: 60.0 Unit: tablet Repeat number: 1 sertraline 100 mg oral tablet 1 tablet, By Mouth, Daily, # 90 tablet, 0 Refills, Maintenance, 09/03/24 8:49:00 PM EST, [facility] STORE 63972, 165.2, cm, 08/10/24 13:56:00 EST, Height Start [...] 2 Refills, Maintenance, 08/25/24 1:01:00 PM EST, [facility] [id number], 165.2, cm, 08/10/24 13:56:00 EST, Height Start [...] Refer endocrine if volume increased by 50% Vital Signs Most recent to oldest [Reference Range]: 1 Height 165.2 cm (10/27/24 2:17 PM) Weight 105.4 kg (10/27/24 2:17 PM) Pulse Rate [55-90 bpm] 62 bpm (10/27/24 2:17 PM) Body Mass Index [18.5-24.99 kg/m2] 38.62 kg/m2 *>HHI* (10/27/24 2:17 PM) Blood Pressure [90-138/55-84 mm Hg] 118/ 79mm Hg (10/27/24 2:17 PM) Temperature [96.8-100.4 DegF] 96.5 DegF *L* (10/27/24 2:17 PM) Blood pressure sites Arm, left (10/27/24 2:17 PM) Temperature Route Temporal (10/27/24 2:17 PM) Weight Obtained Via Standing scale (10/27/24 2:17 PM) Social History Social History Type Response Smoking Status Never smoker entered on: 02/11/18 Sex Sex Representation Female (finding) Patient Care team information Care Team Personnel Name: Venus Mcelroy NP Position: [facility] PCO Associate Professional Member Role: PCP Address: [address] [place] [address] Telecom: Name: Joana Gillespie RN Position: [facility] RN Member Role: Primary Care Nurse Care Team Related Persons Name: ALEJANDRO BARRERA Name: SALOMON SLADE Insurance Providers Guarantor name: HELLEN SLADE Health Plan Information #: 1 Payer: [facility] Member Number: [id number] Policy Number: NA Group Number: [id number] Health Plan Information #: 2 Payer: [facility] Member Number: [id number] Policy Number: NA Group Number: NA
--- OUTSIDE RECORDS SUMMARY | 2024-11-05 09:06 | XMS_ITS | Continuity of Care Document ---
Author Organization [facility] Address [address] [place] [id number]- Care Team Providers Care Private Branch Exchange Service Advisor Name Role Phone Venus Mcelroy NP Primary Care Physician [place] [facility] [place]): [place] [facility] [address] [place] [id number] Attending Physician: Admtr, Ar8 Admitting Physician: AdmtrMaryan Referring Physician: Admtr, Ar8 Encounter Type: Triage Allergies, Adverse Reactions, Alerts [...] d tetanus/diphtheria/pertussis, acel(Tdap) 01/25/18 Given 1Result Comment: [facility] [id number] Medications Aerochamber See Instructions, # 1 each, [...] :41:00 PM EDT, Route to Pharmacy Electronically, [id number], [facility]/pharmacy #[id number], My dispense any covered albuterol MDI, 165.2, cm, 04/27/24 17:05:00 EDT, Height Start Date: 04/27/24 Stop Date: 05/27/24 Status: Ordered Quantity: 1.0 Unit: each Repeat number: 1 atorvastatin 10 mg oral tablet 1 tablet, By Mouth, Daily, # 90 tablet, 1 Refills, Maintenance, 09/10/24 8:31:00 PM EST, [facility]/pharmacy #[id number], 165.2, cm, 08/10/24 13:56:00 EST, Height [...] 1 Refills, Maintenance, 08/04/24 5:13:00 PM EST, [facility] STORE [id number], 165.2, cm, 04/27/24 17:05:00 EDT, Height Start [...] Gm, 0 Refills, Maintenance, 07/11/23 2:03:00 PMEST, [place], [facility]/pharmacy #[id number], Partial fill upon patient request if [...] Refills, Maintenance, 08/14/24 1:43:00 PM EST, Tablet, [facility]/pharmacy #[id number], Partial fill upon patient request if [...] 09/10/24 8:33:00 PMEST, Route to Pharmacy Electronically, [facility]/pharmacy #[id number], 165.2, cm, 08/10/24 13:56:00 EST, Height Start Date: 09/10/24 Status: Ordered Quantity: 90.0 Unit: tablet Repeat number: 2 naproxen 500 mg oral tablet 1 tablet, By Mouth, 2 times a day, # 60 tablet, 0 Refills, Maintenance, 07/06/24 3:43:00 PM EST, [id number], 165.2, cm, 04/27/24 17:05:00 EDT, Height Start Date: 07/06/24 Stop Date: 08/05/24 Status: Ordered Quantity: 60.0 Unit: tablet Repeat number: 1 sertraline 100 mg oral tablet 1 tablet, By Mouth, Daily, # 90 tablet, 0 Refills, Maintenance, 09/03/24 8:49:00 PM EST, [id number], 165.2, cm, 08/10/24 13:56:00 EST, Height Start [...] Refills, Maintenance, 08/25/24 1:01:00 PM EST, [id number], 165.2, cm, 08/10/24 13:56:00 EST, Height Start [...] Team Personnel Name: Venus Mcelroy NP Position: [facility] PCO Associate Professional Member Role: PCP Address: [address] [place] [id number] Telecom: Name: Joana Gillespie RN Position: [facility] RN Member Role: Primary Care Nurse Care Team Related Persons Name: ALEJANDRO BARRERA Name: SALOMON SLADE Insurance Providers Guarantor name: HELLEN SLADE Health Plan Information #: 1 Payer: [facility] Member Number: NA Policy Number: NA Group Number: NA
== END 2024-11-05 09:29 | disposition home or self-care (01) ==
LOC: HO.HGI 08:34
PROVIDERS: PCP Nurse Practitioner Family; Visit Provider Nurse Practitioner
DX: K21.9 Gastro-esophageal reflux disease without esophagitis (principal); K59.00 Constipation, unspecified; K31.84 Gastroparesis
CPT/HCPCS: 99213

== ENCOUNTER → 2024-11-05 08:34 | Outpatient (BNVA) | payer OTHER, SELFPAY | PROVIDERS: PCP Nurse Practitioner Family; Visit Provider Nurse Practitioner | DX: K21.9 Gastro-esophageal reflux disease without esophagitis (principal); K59.04 Chronic idiopathic constipation; K31.84 Gastroparesis; K63.89 Other specified diseases of intestine; R14.0 Abdominal distension (gaseous) | CPT/HCPCS: 99212 ==

== ENCOUNTER 2025-01-27 09:41 | Outpatient (AMB) | payer OTHER, SELFPAY ==
--- NOTE | 2025-01-27 09:49 | MHC.OFFVIS ---
Vital Signs 01/27/25 10:27 Height 5 ft Weight 232 lb BMI 45.3 BP 118/58 L Blood Pressure Location Lt brachial Position Sitting Pulse 76 Pulse Source Pulse Oximeter Pulse Oximetry (%) 95 Oxygen Delivery Method Room Air Intake Visit Reasons: 3 month CIC bloating Intake Note: Est pt for mgmt of GERD + Gastroparesis. CC: C.O. constipation and bloating persistence despite current tx. Pt also reports mild, intermittent episodes of reflux since having their recent procedure (P.T.) No additional sx or concerns at this time. Office Agent Required: No Accompanied by: Mother Allergies sumatriptan (From IMITREX) Allergy (Intermediate, Verified 11/05/24 09:11) RIGHT SIDED FACIAL NUMBNESS zolmitriptan (From ZOMIG) Allergy (Intermediate, Verified 11/05/24 09:11) PASSED OUT HPI HPI 3 month CIC bloating: Details: Assessment & Plan (1) GERD (gastroesophageal reflux disease): Code(s): K21.9 - Gastro-esophageal reflux disease without esophagitis Category: Medical (2) Constipation: Code(s): K59.00 - Constipation, unspecified Category: Medical (3) Gastroparesis: Code(s): K31.84 - Gastroparesis Category: Medical Plan She speaks Maltese. Her mother has been quite ill with cardiac problems and this is effecting her stooling. She is feeling extremely bloated even when she does not eat. She does feel that she is having incomplete evacuation of stool and she takes her Linzess and bisacodyl but again she only takes the Linzess on the weekends because she is fearful of having to move her bowels too often when she is at work. She is only taking 1 bisacodyl at night so I suggest she try increasing it to 2 to see if she can have better comfort. She continues on her Dexilant simethicone and Reglan 5 mg 3 times a day. She asks about her famotidine saying it was discontinued, but she is not having any trouble with GERD since she is on the Dexilant so I explained to her I am simply trying to minimize her pill burden and she understands and says she really does not need it for any breakthrough. We can always revisit this if it becomes a problem in the future. Return office visit in 3 months. Hopefully when things settle down her GI system will also even out again Medications: Refilled metoclopramide HCl (Reglan) 5 mg PO TID 90 tabs 6RF K31.84 - Gastroparesis linaclotide (Linzess) 290 mcg PO QAM 30 days 30 caps 6RF K59.00 - Constipation, unspecified dexlansoprazole 60 mg PO DAILY 90 caps 1RF K21.9 - Gastro-esophageal reflux disease without esophagitis, K63.89 - Other specified diseases of intestine, R14.0 - Abdominal distension (gaseous) simethicone 180 mg PO QID 120 caps 6RF R14.0 - Abdominal distension (gaseous) bisacodyl (Dulcolax (bisacodyl)) 15 mg (3 x 5 mg) PO BEDTIME 90 days 270 tabs 3RF She constipation K59.00 - Constipation, unspecified TODAY'S VISIT She is here today with her mother. She had a recent thyroidectomy on 01/15. She also has PTH problems and is in need of taking calcium. With her tejon CIC and all of the hormonal changes she is very bloated and constipated. She continues on a LOT of medications for her tejon CIC including LInzess 290mcg, bisa 3 tabs qd. She is also on reglan 5mg tid. For now will increase reglan to 10mg qid and add a once time dose of magnesium citratae. It is likely that her thyroid is not yet balance as she is also complaining of fatigue, dry skin etc.. I did advise her that this takes time because they need to wait 4-6 weeks before re-evaluating a TSH level and adjusting the levothyroxine. This can be frustrating for the patient but it is the only way to practice good medicine and not overshoot where she needs to be. ROV 3 weeks. [facility] Medical History Small intestinal bacterial overgrowth IBS (irritable bowel syndrome) Depression Back pain Hypothyroid Diabetes mellitus Migraine HINA on CPAP High cholesterol Surgical History (Updated 06/18/25 @ 10:27 by ALKA Bradley) H/O partial thyroidectomy History of biopsy Hx of cholecystectomy Hx of esophagogastroduodenoscopy Hx of colonoscopy Family History Father Diabetes Mental health problem Mother HTN (hypertension) Heart problem Type 2 diabetes mellitus Brother Colon cancer Social History Household Members: Significant Other Alcohol intake: current Alcohol intake frequency: holidays/special occasions only Comment: Pt due for Amovig SQ injection today for CARTER Patient Tobacco Use Status: Never used Tobacco Current occupational status: employed 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[employer] Review of Systems Const Reports fatigue, Denies fever(s), Reports malaise, Denies night sweats, Denies poor appetite, Reports weight gain and Denies weight loss Eyes Details: glasses Reports requires corrective lenses ENT Reports Normal hearing present, Denies dental pain, Denies dysphagia, Denies hearing loss, Denies mouth pain, Denies odynophagia, Denies throat swelling, Denies tongue swelling and Reports other (Dentition adequate) Card Reports no additional complaints Resp Reports no additional complaints GI Details: Denies abdominal pain, Denies melena, Denies bloating, Denies hematochezia, Reports constipation, Denies GI cramping, Denies dysphagia, Denies excessive flatus, Denies early satiety, Reports heartburn, Denies diarrhea, Denies nausea, Denies odynophagia, Denies vomiting and Denies hematemesis Skin/Breast Denies pruritus, Denies lesions, Denies rash and Denies jaundice Neuro Reports Normal hearing present and Denies Abnormal speech present Endo Reports fatigue Aller/Immun Denies throat swelling and Denies tongue swelling Physical Exam Vital Signs: Last Vital Signs Pulse 76 01/27/25 10:27 BP 118/58 L 01/27/25 10:27 Pulse Ox 95 01/27/25 10:27 Oxygen Delivery Method Room Air 01/27/25 10:27 BMI result Body Mass Index 45.3 Const General: cooperative, no acute distress, well developed and well groomed Nutritional Appearance: well nourished and obese Orientation/consciousness: oriented to person, oriented to place and oriented to time Limitations: language barrier HEENT Head: Yes normocephalic and Yes atraumatic Eyes General: appearance normal, both eyes and all related structures Pupils: Equal, round and reactive pupils present Neck Neck: Yes normal visual inspection and Yes no lymphadenopathy Thyroid: Thyroid normal Resp Effort & Inspection: normal respiratory effort and able to speak in complete sentences Auscultation: clear to auscultation bilaterally Cardio Rate: regular rate Rhythm: regular rhythm Heart sounds: Normal, physiologic split S2 sound present Peripheral pulses: radial pulses present and posterior tibial pulses present GI Inspection: No distended, Yes Abdominal panniculus present and Yes obesity Palpation (GI): Soft to palpation, nontender, no guarding, not rigid and No hepatosplenomegaly present Percussion: Yes normal to percussion Auscultation: normal bowel sounds Rectal Exam - Female: deferred Skin General skin exam: no rashes or lesions noted, turgor normal, skin not dry, no jaundice, No spider nevi and no striae Rashes: no rashes Nails: normal Neuro General: oriented to person, oriented to place and oriented to time Cranial nerves: Yes Equal, round and reactive pupils present and Yes Normal hearing present Speech: No Abnormal speech present Extrem General: Yes normal to inspection, No clubbing, No cyanosis and No edema Psych Appearance: grossly normal and well kempt Mental Status: mental status grossly normal Speech and movement: Normal speech and movement present Affect: normal affect Attitude: cooperative Thought process: Normal thought process present and not confabulating Thought content: Normal thought content present Insight: Fair insight present (Psych) Judgement: Fair judgement present (Psych) Assessment & Plan Assessment & Plan (1) GERD (gastroesophageal reflux disease): Code(s): K21.9 - Gastro-esophageal reflux disease without esophagitis Category: Medical (2) Gastroparesis: Code(s): K31.84 - Gastroparesis Category: Medical (3) Constipation: Code(s): K59.00 - Constipation, unspecified Category: Medical Plan She is here today with her mother. She had a recent thyroidectomy on 01/15. She also has PTH problems and is in need of taking calcium. With her tejon CIC and all of the hormonal changes she is very bloated and constipated. She continues on a LOT of medications for her tejon CIC including LInzess 290mcg, bisa 3 tabs qd. She is also on reglan 5mg tid. For now will increase reglan to 10mg qid and add a once time dose of magnesium citratae. It is likely that her thyroid is not yet balance as she is also complaining of fatigue, dry skin and weight gain.. I did advise her that this takes time because they need to wait 4-6 weeks before re-evaluating a TSH level and adjusting the levothyroxine. This can be frustrating for the patient but it is the only way to practice good medicine and not overshoot where she needs to be. ROV 3 weeks. Medications: New metoclopramide HCl (Reglan) 10 mg PO QIDACHS 120 tabs 6RF K31.84 - Gastroparesis magnesium citrate 1/2 blt if no return in 20 mins, 1/2 btl until 2 btls completed or BM orally daily; 300 mL 0RF Refilled linaclotide (Linzess) 290 mcg PO QAM 30 caps 6RF 30 days K59.00 - Constipation, unspecified simethicone 180 mg PO QID 120 caps 6RF R14.0 - Abdominal distension (gaseous) dexlansoprazole 60 mg PO DAILY 90 caps 1RF K21.9 - Gastro-esophageal reflux disease without esophagitis, K63.89 - Other specified diseases of intestine, R14.0 - Abdominal distension (gaseous) bisacodyl (Dulcolax (bisacodyl)) 15 mg (3 x 5 mg) PO BEDTIME 270 tabs 3RF constipation 90 days K59.00 - Constipation, unspecified Discontinued metoclopramide HCl (Reglan) Discontinued Reason: Doctor's Order 5 mg PO TID 90 tabs 6RF K31.84 - Gastroparesis Coding Level of Care Code Est Pt Level 3 (56434) Diagnoses GERD (gastroesophageal reflux disease) K21.9 Gastroparesis K31.84 Constipation K59.00
[2025-01-27 10:27] VITALS: BP 118/58; PULSE 76; O2SAT 95; BMI 45.3
--- OUTSIDE RECORDS SUMMARY | 2025-01-27 10:43 | XMS_ITS | Clinical Summary ---
Author Organization [facility] Address [address] [place] [id number] Care Team Providers Care Professional Nursing Tutor Name Role Phone Michael Butler MD Primary Care Provider [phone] Social History Tobacco Use Types Packs/Day Years [...] - 2023-2 5 season) 2024 Influenza Vaccine (Season Ended) 2025 HIB Vaccines Aged Out No longer eligi [...] age to complete this topic Meningococcal B Vaccine Aged Out No l onger eligible based on patient's age to complete [...] Procedure Name Priority Date/Time Associated Diagnosis Comments [facility] [facility] SCREENING DIGITAL Routine 10/21/2020 4:30 PM EST Encounter for screening mammogram for malignant neoplasm of breast from Last 3 Months or Most Recently Relevant to Health Maintenance Results * [facility]O SCREENING DIGITAL (10/21/2020 4:30 PM EST) Anatomical Region Laterality Modality Mammography 10/21/2020 3:16 PM EST Narrative 10/21/2020 4:[address] [facility] Diagnostic Imaging Department [address] [place] [address] Patient: DUNIA SLADE Thelma /Age/Sex: 1980 - 40 - F Unit#: [id number] Location/Status: SPDIMAM/REG CLI Mnemonic/Ordering Site: DIGSC/SPMAM Ordering Physician: EDY CHAPMAN ELECTRIC TRIPPER MACHINE OPERATOR [facility] Screening Digital - 10/21/20 - 1546 EXAM: [facility] Screening Digital EXAM DATE AND TIME: 10/21/2020 3:47 PM HISTORY: Annual screening mammography. COMPARISON: 10/16/2022 10/04/2016 TECHNIQUE: CC and MLO views of both breasts were obtained using full field digital mammography. Bilateral digital breast tomosynthesis was performed in the MLO projection. Computer aided detection with the Hangar Seven.2-H was employed. TISSUE DENSITY: b. There are scattered areas of fibroglandular density. FINDINGS: No suspicious masses, grouped microcalcifications, or areas of architectural distortion are seen. The skin and vascularity are unremarkable. IMPRESSION: Stable mammographic appearance of the breasts. No evidence of malignancy is seen. A negative mammogram in the presence of a clinically suspicious palpable abnormality does not preclude the possibility of malignancy or alter the indications for biopsy. BI-RADS: Category 1: Negative RECOMMENDATION(S): 1: Routine screening mammogram BILATERAL in 1 year. [id number], [id number] 3341F, 7025F Dictating Physician: FRANCIS HERNANDEZ MD Electronically Signed by: FRANCIS HERNANDEZ MD Dic Date/Time: 10/21/20 1628 Sign date/Time: 10/21/20 1630 Procedure Note Anahy Hernandez MD - 07/31/2022 [facility] Diagnostic Imaging Department [address] [place] [id number] Patient: DUNIA SLADE /Age/Sex: 1980 - 40 - F Unit#: [id number] Location/Status: SPDIMAM/REG CLI Mnemonic/Ordering Site: [facility] Ordering Physician: EDY CHAPMAN NP [facility] Screening Digital - 10/21/20 - 1546 EXAM: [facility] Screening Digital EXAM DATE AND TIME: 10/21/2020 3:47 PM HISTORY: Annual screening mammography. COMPARISON: 10/16/2022 10/04/2016 TECHNIQUE: CC and MLO views of both breasts were obtained using fullfield digital mammography. Bilateral digital breast tomosynthesis was performedin the MLO projection. Computer aided detection with the Metwit 7.2-Col[place] employed. TISSUE DENSITY: b. There are scattered [...] Routine screening mammogram BILATERAL in 1 year. [id number], [address] 3341F, 7025F Dictating Physician: FRANCIS HERNANDEZ MD Electronically Signed by: FRANCIS HERNANDEZ MD Dic Date/Time: 10/21/20 1628 Sign date/Time: 10/21/20 1630 us Edy Chapman ELECTRIC TRIPPER MACHINE OPERATOR IMG BI PROCEDURES Final Resu lt from Last 3 Months or Most Recently Relevant to Health Maintenance Care Teams Professional Nursing Tutor Relationship Specialty Start Date End Date Michael Butler MD [address] [place] [address] PCP - General Internal Medicine 08/15/21
== END 2025-01-27 10:47 | disposition home or self-care (01) ==
LOC: HO.HGI 09:42
PROVIDERS: PCP Nurse Practitioner Family; Visit Provider Nurse Practitioner
DX: K21.9 Gastro-esophageal reflux disease without esophagitis (principal); K31.84 Gastroparesis; K59.00 Constipation, unspecified
CPT/HCPCS: 99213

== ENCOUNTER → 2025-01-27 09:41 | Outpatient (BNVA) | payer OTHER, SELFPAY | PROVIDERS: PCP Nurse Practitioner Family; Visit Provider Nurse Practitioner | DX: K21.9 Gastro-esophageal reflux disease without esophagitis (principal); K31.84 Gastroparesis; K59.00 Constipation, unspecified | CPT/HCPCS: 99212 ==

== ENCOUNTER 2025-02-23 10:40 | Outpatient (AMB) | payer OTHER, SELFPAY ==
--- OUTSIDE RECORDS SUMMARY | 2025-02-18 23:59 | XMS_ITS | Continuity of Care Document ---
Author Organization [facility] Address [address] [place] [address]- Care Team Providers Care Aircraft Communicator Name Role Phone Navi TAYLOR, Venus Primary Care Physician [phone] Encounter [facility] Date(s): 10/21/24 - 02/18/25 [facility] [address] [place] [id number] Attending Physician: Nakita Crow MD Admitting Physician: Nakita Crow MD Encounter Type: Pre-OutPatient One Time Allergies, Adverse Reactions, Alerts Substance Criticality Severity [...] d tetanus/diphtheria/pertussis, acel(Tdap) 01/25/18 Given 1Result Comment: [facility] [id number] Medications Aerochamber See Instructions, # 1 each, [...] :41:00 PM EDT, Route to Pharmacy Electronically, [id number], [facility]/pharmacy #[id number], My dispense any covered albuterol MDI, 165.2, cm, 04/27/24 17:05:00 EDT, Height Start Date: 04/27/24 Stop Date: 05/27/24 Status: Ordered Quantity: 1.0 Unit: each Repeat number: 1 atorvastatin 10 mg oral tablet 1 tablet, By Mouth, Daily, # 90 tablet, 1 Refills, Maintenance, 09/10/24 8:31:00 PM EST, [facility]/pharmacy #[id number], 165.2, cm, 08/10/24 13:56:00 EST, Height Start Date: 09/10/24 Status: Ordered Quantity: 90.0 Unit: tablet Repeat number: 2 bisacodyl 5 mg oral delayed release tablet 1 tablet = 5 mg, TAKE 3 TABLETS ORALLY BEDTIME FOR CONSTIPATION FOR 90 DAYS Start Date: 12/28/24 Status: Ordered Repeat number: 1 calcitriol 0.25 mcg oral capsule = 0.25 mcg, By Mouth, Daily, 0 Refills, Maintenance, 01/16/25 9:33:00 AM EDT, Capsule, Partial fill upon patient request if the prescription is for a schedule II opioid drug. Start Date: 01/16/25 Status: Ordered Repeat number: 1 calcium (as citrate)-vitamin D 315 mg-250 intl units oral tablet 2 tablet, By Mouth, 2 times a day, # 120 tablet, 0 Refills, Maintenance, 01/16/25 9:06:00 AM EDT, Tablet, [facility]/pharmacy #[id number], Partial fill upon patient request if the prescription is for a schedule II opioid drug., 2 tablet By Mouth 2 times a day, 165, cm, 01/16/25 7:57:00 EDT, Height, 110.6, kg, 01/16/25 8:33:00 EDT, Dry Weight Start Date: 01/16/25 Status: Ordered Quantity: 120.0 Unit: tablet Repeat number: 1 Colace sodium 100 mg oral capsule 100 mg, 1, capsule, By Mouth, 2 times a day, PRN, # 20 capsule, Refills 0, Tot. Refills 0, Maintenance, for constipation, 01/15/25 4:35:00 PM EDT, Route to Pharmacy Electronically, [facility]/pharmacy #[id number], Partial fill upon patient request if the prescription is for a schedule II opioid drug., 165, cm, 01/15/25 10:45:00 EDT, Height, 108, kg, 01/15/25 10:45:00 EDT, Dry Weight Start Date: 01/15/25 Status: Ordered Quantity: 20.0 Unit: capsule Repeat number: 1 dapagliflozin 5 mg oral tablet 1 tablet, By Mouth, Daily, # 90 tablet, 1 Refills, Maintenance, 02/16/25 4:07:00 PM EDT, [facility]/pharmacy#[id number], 165, cm, 02/09/25 15:54:00 EDT, Height, 110.6, kg, 01/16/25 8:33:00 EDT, Dry Weight Start Date: 02/16/25 Status: Ordered Quantity: 90.0 Unit: tablet Repeat number: 2 Dexilant 60 mg oral delayed release capsule 1 capsule = 60 mg, By Mouth, Daily, # 30 capsule, 0 Refills, Maintenance, 04/05/21 8:18:00 AM EDT, [facility] Capsule, Partial fill upon patient request if the prescription is for a schedule II opioid drug. Start Date: 04/05/21 Status: Ordered Quantity: 30.0 Unit: capsule Repeat number: 1 exenatide 2 mg/0.85 mL subcutaneous suspension, extended release = 2 mg, Subcutaneous Infusion, Every 7 days, # 3.4 mL, 0 Refills, Maintenance, 01/11/25 2:08:00 PM EDT, [facility]/pharmacy #[id number], Partial fill upon patient request if the prescription is for a schedule II opioid drug., 166, cm, 01/11/25 13:38:00 EDT, Height, 107.6, kg, 12/28/24 8:53:00 EDT, Dry Weight Start Date: 01/11/25 Stop Date: 02/10/25 Status: Ordered Quantity: 3.4 Unit: mL Repeat number: 1 fluticasone 50 mcg/inh nasal spray 1 sprays = 50 mcg, Nares, Both, 2 times a day, # 16 Gm, 0 Refills, Maintenance, 07/11/23 2:03:00 PMEST, [place], [facility]/pharmacy #[id number], Partial fill upon patient request if the prescription is for a schedule II opioid drug., 1 sprays Nares, Both 2 times a day, 164, cm, 05/28/23 7:42:00 EDT, Height Start Date: 07/11/23 Status: Ordered Quantity: 16.0 Unit: g Repeat number: 1 Freestyle Lancets See Instructions, # 100 each, Refills 2, Tot. Refills 2, Maintenance, DX E11.9 Use to test blood sugares twice daily, 12/27/23 11:25:00 AM EDT, Supply, 165.2, cm, 11/26/23 9:22:00 EDT, Height Start Date: 12/27/23 Status: Ordered Quantity: 100.0 Unit: each Repeat number: 3 FreeStyle Gwyn 2 Sensors See Instructions, # 2 each, Maintenance, Change every 14 days, 01/11/25 2:14:00 PM EDT, Supply, 166, cm, 01/11/25 13:38:00 EDT, Height, 107.6, kg, 12/28/24 8:53:00 EDT, Dry Weight Start Date: 01/11/25 Status: Ordered Quantity: 2.0 Unit: each Repeat number: 1 Indications: Type 2 diabetes mellitus without complications; Freestyle Lite Test Strips See Instructions, # 100 each, Refills 5, Tot. Refills 5, Maintenance, DX E11.9 Use to test bloos sugars twice daily., 02/16/25 4:07:00 PM EDT, Supply, 165, cm, 02/09/25 15:54:00 EDT, Height, 110.6, kg,01/16/25 8:33:00 EDT, Dry Weight Start Date: 02/16/25 Status: Ordered Quantity: 100.0 Unit: each Repeat number: 6 levothyroxine 75 mcg (0.075 mg) oral tablet 1 tablet, By Mouth, Daily, # 90 tablet, 1 Refills, Maintenance, 11/09/24 8:35:00 AM EDT, [id number], 165.2, cm, 10/27/24 14:17:00 EDT, Height, 105.9, kg, 09/14/24 13:04:00 EST, Dry Weight Start Date: 11/09/24 Status: Ordered Quantity: 90.0 Unit: tablet Repeat number: 1 Linzess 72 mcg oral capsule 2 capsule [...] 09/10/24 8:33:00 PMEST, Route to Pharmacy Electronically, [facility]/pharmacy #[id number], 165.2, cm, 08/10/24 13:56:00 EST, Height Start Date: 09/10/24 Status: Ordered Quantity: 90.0 Unit: tablet Repeat number: 2 metoclopramide 5 mg oral tablet 1 tablet = 5 mg, TAKE 1 TABLET BY MOUTH THREE TIMES A DAY Start Date: 12/28/24 Status: Ordered Repeat number: 1 naproxen 500 mg oral tablet 1 tablet, By Mouth, 2 times a day, # 60 tablet, 0 Refills, Maintenance, 07/06/24 3:43:00 PM EST, [id number], 165.2, cm, 04/27/24 17:05:00 EDT, Height Start Date: 07/06/24 Stop Date: 08/05/24 Status: Ordered Quantity: 60.0 Unit: tablet Repeat number: 1 sertraline 100 mg oral tablet 1 tablet, By Mouth, Daily, # 90 tablet, 0 Refills, Maintenance, 12/01/24 2:33:00 PM EDT, [facility], 165.2, cm, 11/17/24 14:02:00 EDT, Height, 105.9, kg, 09/14/24 13:04:00 EST, Dry Weight Start Date: 12/01/24 Status: Ordered Quantity: 90.0 Unit: tablet Repeat number: 1 Trulicity Pen 0.75 mg/0.5 mL subcutaneous solution 0.5 mL = 0.75 mg, Subcutaneous Injection, Every week, rotate injection sites, # 2.5 mL, 0 Refills, Maintenance, 01/12/25 12:01:00 PM EDT, Solution, [facility]/pharmacy #[id number], Partial fill upon patient requestif the prescription is for a schedule II opioid drug., 166, cm, 01/11/25 13:38:00 EDT, Height, 107.6, kg, 12/28/24 8:53:00 EDT, Dry Weight Start Date: 01/12/25 Stop Date: 02/11/25 Status: Ordered Quantity: 2.5 Unit: mL Repeat number: 1 Problem List Condition Confirmation Course Effective Dates Status Health Status Informant Anxiety Confirmed Active Chronic low back pain Confirmed Active Diffuse alopecia areata Confirmed Active Dyspnea Confirmed Active Gastroparesis Confirmed Active OSIEL (generalized anxiety disorder) Confirmed Active Lincoln's thyroiditis Confirmed Active Hypercalcemia Confirmed Active HLD (hyperlipidemia) Confirmed Active Hyperparathyroidism Confirmed Active Hypothyroidism Confirmed Active Insomnia Confirmed Active IBS (irritable bowel syndrome) Confirmed Active Migraines Confirmed Active Multiple thyroid nodules 1 Confirmed 06/09/21 Active Fatty liver disease, nonalcoholic Confirmed Active Panic disorder Confirmed Active Herniated lumbar intervertebral disc Confirmed Active Severe obesity (BMI 35.0-39.9) with comorbidity Confirmed Active Snoring Confirmed Active Lumbar spinal stenosis Confirmed Active Chronic migraine Confirmed Active Type 2 diabetes mellitus Confirmed Active Vitamin D deficiency Confirmed Active 1US/FNA 05/2921. US in 18 months, then q 2 years. Refer endocrine if volume increased by 50% Social History Social History Type Response Smoking Status Never smoker entered on: 02/11/18 Sex Sex Representation Female (finding) Patient Care team information Care Team Personnel Name: Venus Mcelroy NP Position: [facility] PCO Associate Professional Member Role: PCP Address: [address] [place] [address], [address] [place] [address]- Telecom: Name: Ilene Goldstein RN Position: S RN Member Role: Primary Care Nurse Name: Joana Gillespie RN Position: S RN Member Role: Primary Care Nurse Care Team Related Persons Name: ALEJANDRO BARRERA Name: SALOMON SLADE Insurance Providers Guarantor name: HELLEN SLADE [facility] Plan Information #: 1 Payer: [facility] Payer Identifier: NA Member Number: [id number] Group Number: [id number] Subscriber Identifier: [id number] Relationship to Subscriber: self Coverage Type: Medicaid (Managed Care) Coverage Verification Date: NA Telecom: NA Address:
--- OUTSIDE RECORDS SUMMARY | 2025-02-18 23:59 | XMS_ITS | Continuity of Care Document ---
Author Organization [facility] As formerly [facility] Address [address] [place] [address] [address] [place] [address]- Care Team Providers Care Dramatic Art Teacher Name Role Phone Venus Mcelroy NP Primary Care Physician Encounter [facility] Date(s): 01/19/25 - 02/18/[address] [place], [place] [address] Encounter Type: Triage Allergies, Adverse Reactions, Alerts [...] d tetanus/diphtheria/pertussis, acel(Tdap) 01/25/18 Given 1Result Comment: [facility] [id number] Medications Aerochamber See Instructions, # 1 each, [...] :41:00 PM EDT, Route to Pharmacy Electronically, [id number], [facility]/pharmacy #[id number], My dispense any covered albuterol MDI, 165.2, cm, 04/27/24 17:05:00 EDT, Height Start Date: 04/27/24 Stop Date: 05/27/24 Status: Ordered Quantity: 1.0 Unit: each Repeat number: 1 atorvastatin 10 mg oral tablet 1 tablet, By Mouth, Daily, # 90 tablet, 1 Refills, Maintenance, 09/10/24 8:31:00 PM EST, [facility]/pharmacy #[id number], 165.2, cm, 08/10/24 13:56:00 EST, [...] Refills, Maintenance, 01/16/25 9:06:00 AM EDT, Tablet, [facility]/pharmacy #[id number], Partial fill upon patient request [...] 4:35:00 PM EDT, Route to Pharmacy Electronically, [facility]/pharmacy #[id number], Partial fill upon patient request if the prescription is for a schedule II opioid drug., 165, cm, 01/15/25 10:45:00 EDT, Height, 108, kg, 01/15/25 10:45:00 EDT, Dry Weight Start Date: 01/15/25 Status: Ordered Quantity: 20.0 Unit: capsule Repeat number: 1 dapagliflozin 5 mg oral tablet 1 tablet, By Mouth, Daily, # 90 tablet, 1 Refills, Maintenance, 02/16/25 4:07:00 PM EDT, [facility]/pharmacy#0488, 165, cm, 02/09/25 15:54:00 EDT, Height, [...] Gm, 0 Refills, Maintenance, 07/11/23 2:03:00 [facility], [place], [id number], Partial fill upon patient request [...] 1 Refills, Maintenance, 11/09/24 8:35:00 AM EDT, [facility], 165.2, cm, 10/27/24 14:17:00 EDT, Height, 105.9, [...] 09/10/24 8:33:00 PMEST, Route to Pharmacy Electronically, [facility]/pharmacy #[id number], 165.2, cm, 08/10/24 13:56:00 EST, [...] 0 Refills, Maintenance, 07/06/24 3:43:00 PM EST, [facility], 165.2, cm, 04/27/24 17:05:00 EDT, Height Start Date: 07/06/24 Stop Date: 08/05/24 Status: Ordered Quantity: 60.0 Unit: tablet Repeat number: 1 sertraline 100 mg oral tablet 1 tablet, By Mouth, Daily, # 90 tablet, 0 Refills, Maintenance, 12/01/24 2:33:00 PM EDT, [facility], 165.2, cm, 11/17/24 14:02:00 EDT, Height, 105.9, kg, 09/14/24 13:04:00 EST, Dry Weight Start Date: 12/01/24 Status: Ordered Quantity: 90.0 Unit: tablet Repeat number: 1 Trulicity Pen 0.75 mg/0.5 mL subcutaneous solution 0.5 mL = 0.75 mg, Subcutaneous Injection, Every week, rotate injection sites, # 2.5 mL, 0 Refills, Maintenance, 01/12/25 12:01:00 PM EDT, Solution, [id number], Partial fill upon patient requestif the [...] Team Personnel Name: Venus Mcelroy NP Position: [facility] PCO Associate Professional Member Role: PCP Address: [address] [place] [address], [address] [place], [place] [address] Telecom: Name: Ilene Goldstein RN Position: S RN Member Role: Primary Care Nurse Name: Joana Gillespie RN Position: S RN Member Role: Primary Care Nurse Care Team Related Persons Name: ALEJANDRO BARRERA Name: SALOMON SLADE Insurance Providers Guarantor name: HELLEN SLADE [facility] Plan Information #: 1 Payer: [facility] Payer Identifier: NA Member Number: [id number] Group Number: [id number] Subscriber Identifier: [id number] Relationship to Subscriber: self Coverage Type: Medicaid (Managed Care) Coverage Verification Date: NA Telecom: NA Address: NA
--- NOTE | 2025-02-23 10:43 | A.OFFVIS_ITS ---
Vital Signs 02/23/25 10:59 Height 5 ft Weight 238 lb 1.588 oz BMI 46.5 BP 119/64 Blood Pressure Location Lt brachial Position Sitting Respiration 18 Pulse 73 Pulse Source Pulse Oximeter Pulse Oximetry (%) 98 Oxygen Delivery Method Room Air Intake Visit Reasons: CIC Allergies sumatriptan (From IMITREX) Allergy (Intermediate, Verified 11/05/24 09:11) RIGHT SIDED FACIAL NUMBNESS zolmitriptan (From ZOMIG) Allergy (Intermediate, Verified 11/05/24 09:11) PASSED OUT HPI HPI CIC: Details: Assessment & Plan (1) GERD (gastroesophageal reflux disease): Code(s): K21.9 - Gastro-esophageal reflux disease without esophagitis Category: Medical (2) Gastroparesis: Code(s): K31.84 - Gastroparesis Category: Medical (3) Constipation: Code(s): K59.00 - Constipation, unspecified Category: Medical Plan She is here today with her mother. She had a recent thyroidectomy on 01/15. She also has PTH problems and is in need of taking calcium. With her [place] [facility] and all of the hormonal changes she is very bloated and constipated. She continues on a LOT of medications for her [place] [facility] including LInzess 290mcg, bisa 3 tabs qd. She is also on reglan 5mg tid. For now will increase reglan to 10mg qid and add a once time dose of magnesium citratae. It is likely that her thyroid is not yet balance as she is also complaining of fatigue, dry skin and weight gain.. I did advise her that this takes time because they need to wait 4-6 weeks before re-evaluating a TSH level and adjusting the levothyroxine. This can be frustrating for the patient but it is the only way to practice good medicine and not overshoot where she needs to be. ROV 3 weeks. Medications: New metoclopramide HCl (Reglan) 10 mg PO QIDACHS 120 tabs 6RF K31.84 - Gastroparesis magnesium citrate 1/2 blt if no return in 20 mins, 1/2 btl until 2 btls completed or BM orally daily; 300 mL 0RF Refilled linaclotide (Linzess) 290 mcg PO QAM 30 caps 6RF 30 days K59.00 - Constipation, unspecified simethicone 180 mg PO QID 120 caps 6RF R14.0 - Abdominal distension (gaseous) dexlansoprazole 60 mg PO DAILY 90 caps 1RF K21.9 - Gastro-esophageal reflux disease without esophagitis, K63.89 - Other specified diseases of intestine, R14.0 - Abdominal distension (gaseous) bisacodyl (Dulcolax (bisacodyl)) 15 mg (3 x 5 mg) PO BEDTIME 270 tabs 3RF constipation 90 days K59.00 - Constipation, unspecified Discontinued metoclopramide HCl (Reglan) Discontinued Reason: Doctor's Order 5 mg PO TID 90 tabs 6RF K31.84 - Gastroparesis TODAY'S VISIT Increasing the reglan has helped with the CIC and bloating. She strated having pain in the left abd and looser stools with bits of salad in it yesterday. She had a looser BM today and the pain prior to the BM but then it resolved. For now we will watch and wait, I am not sure if we need to adjust between the 5 and 10 mg Reglan doses or whether this is just something she ate that did not agree with her. 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 This is obviously worrying to her. Return office visit in 3 weeks she will call me if the symptoms worsen [facility] Medical History Small intestinal bacterial overgrowth IBS (irritable bowel syndrome) Depression Back pain Hypothyroid Diabetes mellitus Migraine HINA on CPAP High cholesterol Surgical History (Updated 01/27/25 @ 10:27 by ALKA Bradley) H/O partial thyroidectomy History of biopsy Hx of cholecystectomy Hx of esophagogastroduodenoscopy Hx of colonoscopy Family History Father Diabetes Mental health problem Mother HTN (hypertension) Heart problem Type 2 diabetes mellitus Brother Colon cancer Social History Household Members: Significant Other Alcohol intake: current Alcohol intake frequency: holidays/special occasions only Comment: Pt due for Amovig SQ injection today for CARTER Patient Tobacco Use Status: Never used Tobacco Current occupational status: employed 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 Review of Systems Const Denies fatigue, Denies fever(s), Denies night sweats, Denies poor appetite and Denies weight loss Eyes Details: glasses Reports requires corrective lenses ENT Reports Normal hearing present, Denies dental pain, Denies dysphagia, Denies hearing loss, Denies mouth pain, Denies odynophagia, Denies throat swelling, Denies tongue swelling and Reports other (Dentition adequate) Card Reports no additional complaints Resp Reports no additional complaints GI Details: Reports abdominal pain, Denies melena, Reports bloating, Denies hematochezia, Denies constipation, Reports GI cramping, Denies dysphagia, Denies excessive flatus, Denies early satiety, Denies heartburn, Denies diarrhea, Reports loose stools, Denies nausea, Denies odynophagia, Denies vomiting and Denies hematemesis Skin/Breast Denies pruritus, Denies lesions, Denies rash and Denies jaundice Neuro Reports Normal hearing present and Denies Abnormal speech present Endo Denies fatigue Aller/Immun Denies throat swelling and Denies tongue swelling Physical Exam Vital Signs: Last Vital Signs Pulse 73 02/23/25 10:59 Resp 18 02/23/25 10:59 BP 119/64 02/23/25 10:59 Pulse Ox 98 02/23/25 10:59 Oxygen Delivery Method Room Air 02/23/25 10:59 BMI result Body Mass Index 46.5 Const General: cooperative, no acute distress, well developed and well groomed Nutritional Appearance: well nourished, obese and overweight Orientation/consciousness: oriented to person, oriented to place and oriented to time Limitations: No language barrier, ambulation with cane, ambulation with walker and wheelchair HEENT Head: Yes normocephalic and Yes atraumatic Eyes General: appearance normal, both eyes and all related structures Pupils: Equal, round and reactive pupils present Neck Neck: Yes normal visual inspection and Yes no lymphadenopathy Thyroid: Thyroid normal Resp Effort & Inspection: normal respiratory effort and able to speak in complete sentences Auscultation: clear to auscultation bilaterally Cardio Rate: regular rate Rhythm: regular rhythm Heart sounds: Normal, physiologic split S2 sound present Peripheral pulses: radial pulses present and posterior tibial pulses present GI Inspection: No distended, No Abdominal panniculus present and Yes obesity Palpation (GI): Soft to palpation, nontender, no guarding, not rigid and No hepatosplenomegaly present Percussion: Yes normal to percussion Auscultation: normal bowel sounds Rectal Exam - Female: deferred Skin General skin exam: no rashes or lesions noted, turgor normal, skin not dry, no jaundice, No spider nevi and no striae Rashes: no rashes Nails: normal Neuro General: oriented to person, oriented to place and oriented to time Cranial nerves: Yes Equal, round and reactive pupils present and Yes Normal hearing present Speech: No Abnormal speech present Extrem General: Yes normal to inspection, No clubbing, No cyanosis and No edema Psych Appearance: grossly normal and well kempt Mental Status: mental status grossly normal Speech and movement: Normal speech and movement present Affect: normal affect Attitude: cooperative Thought process: Normal thought process present and not confabulating Thought content: Normal thought content present Insight: Limited insight present (Psych) Judgement: Limited judgement present (Psych) Assessment & Plan Assessment & Plan (1) GERD (gastroesophageal reflux disease): Code(s): K21.9 - Gastro-esophageal reflux disease without esophagitis Category: Medical (2) Gastroparesis: Code(s): K31.84 - Gastroparesis Category: Medical (3) Constipation: Code(s): K59.00 - Constipation, unspecified Category: Medical Plan Increasing the reglan has helped with the CIC and bloating. She started having pain in the left abd and looser stools with bits of salad in it yesterday. She had a looser BM today and the pain prior to the BM but then it resolved. For now we will watch and wait, I am not sure if we need to adjust between the 5 and 10 mg Reglan doses or whether this is just something she ate that did not agree with her. 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 This is obviously worrying to her. Return office visit in 3 weeks she will call me if the symptoms worsen Coding Level of Care Code Est Pt Level 3 (99277) Diagnoses GERD (gastroesophageal reflux disease) K21.9 Gastroparesis K31.84 Constipation K59.00
[2025-02-23 10:59] VITALS: BP 119/64; PULSE 73; RESP 18; O2SAT 98; BMI 46.5
--- OUTSIDE RECORDS SUMMARY | 2025-02-23 12:00 | XMS_ITS | Clinical Summary ---
Author Organization [facility] ity Address [id number] [place] [id number] Care Team Providers Care Air Transportation Provider Name Role Phone Michael Butler MD Primary Care Provider [phone] Social History Tobacco Use Types Packs/Day Years [...] 2023-2 5 season) 2024 Influenza Vaccine (#1) 2025 HIB Vaccines Aged Out No longer [...] 5 Years) and At-Risk Patients (6 to 49 Years) Aged Out No longer eligible b ased on patient's age to complete this topic RSV Immunization Patients Under 20 months Aged Out No longer eligible b ased on patient's age to complete this topic Varicella Vaccines Aged Out No longer eligible based on patient's age to complete this topic Procedures Procedure Name Priority Date/Time Associated Diagnosis Comments [facility] SCREENING DIGITAL Routine 10/21/2020 4:30 PM EST Encounter for screening mammogram for malignant neoplasm of breast from Last 3 Months or Most Recently Relevant to Health Maintenance Results * VERITO SCREENING DIGITAL (10/21/2020 4:30 PM EST) Anatomical Region Laterality Modality Mammography 10/21/2020 3:16 PM EST Narrative 10/21/2020 4:30 PM EST [facility] Diagnostic Imaging Department [address] [place] [address] Patient: DUNIA SLADE Thelma /Age/Sex: 1980 - 40 - F Unit#: [id number] Location/Status: SPDIMAM/REG CLI Mnemonic/Ordering Site: DIGSC/SPMAM Ordering Physician: EDY CHAPMAN HYDRAULIC RIVETER [facility] Screening Digital - 10/21/20 - 1546 EXAM: [facility] Screening Digital EXAM DATE AND TIME: 10/21/2020 3:47 PM HISTORY: Annual screening mammography. COMPARISON: 10/16/2022 10/04/2016 TECHNIQUE: CC and MLO views of both breasts were obtained using full field digital mammography. Bilateral digital breast tomosynthesis was performed in the MLO projection. 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 TISSUE DENSITY: b. There are [...] Routine screening mammogram BILATERAL in 1 year. [address]53, 33692 3341F, 7025F Dictating Physician: FRANCIS HERNANDEZ MD Electronically Signed by: FRANCIS HERNANDEZ MD Dic Date/Time: 10/21/20 1628 Sign date/Time: 10/21/20 1630 Procedure Note Anahy Hernandez MD - 07/31/2022 [facility] Diagnostic Imaging Department [address] [place] [id number] Patient: DUNIA SLADE /Age/Sex: 1980 - 40 - F Unit#: [id number] Location/Status: SPDIMAM/REG CLI Mnemonic/Ordering Site: [facility] Ordering Physician: EDY CHAPMAN NP Verito Screening Digital - 10/21/20 - 1546 EXAM: [facility] Screening Digital EXAM DATE AND TIME: 10/21/2020 3:47 PM HISTORY: Annual screening mammography. COMPARISON: 10/16/2022 10/04/2016 TECHNIQUE: CC and MLO views of both breasts were obtained using fullfield digital mammography. Bilateral digital breast tomosynthesis was performedin the MLO projection. 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 TISSUE DENSITY: b. There are scattered [...] Routine screening mammogram BILATERAL in 1 year. 52658, 04716 3341F, 7025F Dictating Physician: FRANCIS HERNANDEZ MD Electronically Signed by: FRANCIS HERNANDEZ MD Dic Date/Time: 10/21/20 1628 Sign date/Time: 10/21/20 1630 us Edy Chapman HYDRAULIC RIVETER IMG BI PROCEDURES Final Resu lt from Last 3 Months or Most Recently Relevant to Health Maintenance Care Teams Air Transportation Provider Relationship Specialty Start Date End Date Michael Butler MD [address] [place] [address] PCP - General Internal Medicine 08/15/21
== END 2025-02-23 11:31 | disposition home or self-care (01) ==
LOC: HO.HGI 10:41
PROVIDERS: PCP Nurse Practitioner Family; Visit Provider Nurse Practitioner
DX: K21.9 Gastro-esophageal reflux disease without esophagitis (principal); K31.84 Gastroparesis; K59.00 Constipation, unspecified
CPT/HCPCS: 99213

== ENCOUNTER → 2025-02-23 10:40 | Outpatient (BNVA) | payer OTHER, SELFPAY | PROVIDERS: PCP Nurse Practitioner Family; Visit Provider Nurse Practitioner | DX: K21.9 Gastro-esophageal reflux disease without esophagitis (principal); K31.84 Gastroparesis; K59.00 Constipation, unspecified | CPT/HCPCS: 99212 ==

== ENCOUNTER 2025-03-25 16:13 | Outpatient (AMB) | payer OTHER, SELFPAY ==
--- NOTE | 2025-03-25 16:17 | A.OFFVIS_ITS ---
Vital Signs 03/25/25 16:23 Height 5 ft 2 in Weight 238 lb BMI 43.5 BP 133/67 Blood Pressure Location Rt brachial Position Sitting Pulse 66 Intake Visit Reasons: CIC/loose stools Intake Note: Patient in office today in follow up of CIC. CC: She reports that she continues to have abdominal bloating. Corporate Consultant Required: No Accompanied by: Self / Same As Patient Allergies sumatriptan (From IMITREX) Allergy (Intermediate, Verified 03/25/25 16:29) RIGHT SIDED FACIAL NUMBNESS zolmitriptan (From ZOMIG) Allergy (Intermediate, Verified 03/25/25 16:29) PASSED OUT HPI HPI CIC/loose stools: Details: Assessment & Plan (1) GERD (gastroesophageal reflux disease): Code(s): K21.9 - Gastro-esophageal reflux disease without esophagitis Category: Medical (2) Gastroparesis: Code(s): K31.84 - Gastroparesis Category: Medical (3) Constipation: Code(s): K59.00 - Constipation, unspecified Category: Medical Plan Increasing the reglan has helped with the CIC and bloating. She started having pain in the left abd and looser stools with bits of salad in it yesterday. She had a looser BM today and the pain prior to the BM but then it resolved. For now we will watch and wait, I am not sure if we need to adjust between the 5 and 10 mg Reglan doses or whether this is just something she ate that did not agree with her. 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 This is obviously worrying to her. Return office visit in 3 weeks she will call me if the symptoms worsen TODAY'S VISIT Her current GI regimen consists of Dexilant, Linzess 290 micro g, bisacodyl, Reglan 10 mg 4 times a day, and simethicone. The patient is a 45-year-old female presenting with bloating and constipation. She has experienced persistent abdominal bloating, notably after eating small meals, leading to significant discomfort. Her constipation is managed with Linsess and bisacodyl, although she continues to struggle with complete evacuation. Previous assumptions of a viral origin for her symptoms have passed, yet the bloating persists. Her medical history includes hypothyroidism following a partial thyroidectomy, which continues to impact her bowel function. Recent lab results indicated elevated TSH levels, prompting an increase in her levothyroxine dose to address thyroid hormone imbalances, which may contribute to the constipation. The patient also reports low calcium levels post-surgery, managed with supplements, though absorption remains a concern. Despite these challenges, her type 2 diabetes is well-controlled. A stool test is planned to explore pancreatic function further due to excessive gas production. Contributing factors to her ongoing constipation of the fact that she will not take Linzess when she is working and only takes it on weekends because she is fearful being in the bathroom too much on her job, her low thyroid function, the necessity you take 4 times a day high-dose calcium which is constipating. - Continue taking your prescribed thyroid medication, levothyroxine, at the updated dose of 88 mcg daily. - Maintain your current calcium and Calcitriol supplementation regimen as advised. - Attend the lab for the pancreatic enzyme stool test at your earliest convenience. - Monitor your symptoms and dietary intake, keeping an eye on foods that may contribute to bloating. - Schedule a follow-up appointment in six weeks to re-evaluate thyroid function and digestive symptoms. - Report any significant changes in symptoms or concerns to our office. - Maintain your current diabetes management regimen as directed by your primary care provider. [facility] Medical History (Updated 03/25/25 @ 16:42 by BETTINA Petty) Small intestinal bacterial overgrowth IBS (irritable bowel syndrome) Depression Back pain Hypothyroid Diabetes mellitus Migraine HINA on CPAP High cholesterol Surgical History (Updated 01/27/25 @ 10:27 by ALKA Bradley) H/O partial thyroidectomy History of biopsy Hx of cholecystectomy Hx of esophagogastroduodenoscopy Hx of colonoscopy Family History Father Diabetes Mental health problem Mother HTN (hypertension) Heart problem Type 2 diabetes mellitus Brother Colon cancer Social History Household Members: Significant Other Alcohol intake: current Alcohol intake frequency: holidays/special occasions only Comment: Pt due for Amovig SQ injection today for [facility]TER Patient Tobacco Use Status: Never used Tobacco Current occupational status: employed 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 Review of Systems Const Denies fatigue, Denies fever(s), Denies night sweats, Denies poor appetite, Reports weight gain and Denies weight loss Eyes Details: glasses Reports requires corrective lenses ENT Reports Normal hearing present, Denies dental pain, Denies dysphagia, Denies hearing loss, Denies mouth pain, Denies odynophagia, Denies throat swelling, Denies tongue swelling and Reports other (Dentition adequate) Card Reports no additional complaints Resp Reports no additional complaints GI Details: Denies abdominal pain, Denies melena, Reports bloating, Denies hematochezia, Reports constipation, Denies GI cramping, Denies dysphagia, Denies excessive flatus, Reports early satiety, Reports heartburn, Denies diarrhea, Denies nausea, Denies odynophagia, Denies vomiting and Denies hematemesis Skin/Breast Denies pruritus, Denies lesions, Denies rash and Denies jaundice Neuro Reports Normal hearing present and Denies Abnormal speech present Endo Denies fatigue Aller/Immun Denies throat swelling and Denies tongue swelling Physical Exam Vital Signs: Last Vital Signs Pulse 66 03/25/25 16:23 BP 133/67 03/25/25 16:23 Const General: cooperative, no acute distress, well developed and well groomed Nutritional Appearance: well nourished and obese Orientation/consciousness: oriented to person, oriented to place and oriented to time Limitations: No language barrier HEENT Head: Yes normocephalic and Yes atraumatic Eyes General: appearance normal, both eyes and all related structures Pupils: Equal, round and reactive pupils present Neck Neck: Yes normal visual inspection and Yes no lymphadenopathy Thyroid: Thyroid normal Resp Effort & Inspection: normal respiratory effort and able to speak in complete sentences Auscultation: clear to auscultation bilaterally Cardio Rate: regular rate Rhythm: regular rhythm Heart sounds: Normal, physiologic split S2 sound present Peripheral pulses: radial pulses present and posterior tibial pulses present GI Inspection: Yes distended (mild), No Abdominal panniculus present and Yes obesity Palpation (GI): Soft to palpation, nontender, no guarding, not rigid and No hepatosplenomegaly present Percussion: Yes normal to percussion Auscultation: normal bowel sounds Rectal Exam - Female: deferred Skin General skin exam: no rashes or lesions noted, turgor normal, skin not dry, no jaundice, No spider nevi and no striae Rashes: no rashes Nails: normal Neuro General: oriented to person, oriented to place and oriented to time Cranial nerves: Yes Equal, round and reactive pupils present and Yes Normal hearing present Speech: No Abnormal speech present Extrem General: Yes normal to inspection, No clubbing, No cyanosis and No edema Psych Appearance: grossly normal and well kempt Mental Status: mental status grossly normal Speech and movement: Normal speech and movement present Affect: normal affect Attitude: cooperative Thought process: Normal thought process present and not confabulating Thought content: Normal thought content present Insight: Good insight present (Psych) Judgement: Good judgement present (Psych) Assessment & Plan Assessment & Plan (1) GERD (gastroesophageal reflux disease): Code(s): K21.9 - Gastro-esophageal reflux disease without esophagitis Category: Medical (2) Gastroparesis: Code(s): K31.84 - Gastroparesis Category: Medical (3) Constipation: Code(s): K59.00 - Constipation, unspecified Category: Medical (4) IBS (irritable bowel syndrome): Code(s): K58.9 - Irritable bowel syndrome, unspecified Category: Medical Plan Her current GI regimen consists of Dexilant, Linzess 290 micro g, bisacodyl, Reglan 10 mg 4 times a day, and simethicone. The patient is a 45-year-old female presenting with bloating and constipation. She has experienced persistent abdominal bloating, notably after eating small meals, leading to significant discomfort. Her constipation is managed with Linsess and bisacodyl, although she continues to struggle with complete evacuation. Previous assumptions of a viral origin for her symptoms have passed, yet the bloating persists. Her medical history includes hypothyroidism following a partial thyroidectomy, which continues to impact her bowel function. Recent lab results indicated el evated TSH levels, prompting an increase in her levothyroxine dose to address thyroid hormone imbalances, which may contribute to the constipation. The patient also reports low calcium levels post-surgery, managed with supplements, though absorption remains a concern. Despite these challenges, her type 2 diabetes is well-controlled. A stool test is planned to explore pancreatic function further due to excessive gas production. Contributing factors to her ongoing constipation of the fact that she will not take Linzess when she is working and only takes it on weekends because she is fearful being in the bathroom too much on her job, her low thyroid function, the necessity you take 4 times a day high-dose calcium which is constipating. I believe that are severe and ongoing bloating really is a function of her problems controlling the constipation causing gas trapping since she is not moving her bowels with any regularity. While I will explore pancreatic elastase I really doubt that this any other underlying pathology contributing to this in terms of over gas production. - Continue taking your prescribed thyroid medication, levothyroxine, at the updated dose of 88 mcg daily. - Maintain your current calcium and Calcitriol supplementation regimen as advised. - Attend the lab for the pancreatic enzyme stool test at your earliest convenience. - Monitor your symptoms and dietary intake, keeping an eye on foods that may contribute to bloating. - Schedule a follow-up appointment in six weeks to re-evaluate thyroid function and digestive symptoms. - Report any significant changes in symptoms or concerns to our office. - Maintain your current diabetes management regimen as directed by your primary care provider. Orders: Orders Pancreatic Elastase-1 Today K58.9 - Irritable bowel syndrome, unspecified Coding Level of Care Code Est Pt Level 3 (65229) Diagnoses GERD (gastroesophageal reflux disease) K21.9 Gastroparesis K31.84 Constipation K59.00 IBS (irritable bowel syndrome) K58.9
[2025-03-25 16:23] VITALS: BP 133/67; PULSE 66; BMI 43.5
== END 2025-03-25 16:49 | disposition home or self-care (01) ==
LOC: HO.HGI 16:14
PROVIDERS: PCP Nurse Practitioner Family; Visit Provider Nurse Practitioner
DX: K21.9 Gastro-esophageal reflux disease without esophagitis (principal); K31.84 Gastroparesis; K59.00 Constipation, unspecified; K58.9 Irritable bowel syndrome, unspecified
CPT/HCPCS: 99213

== ENCOUNTER → 2025-03-25 16:13 | Outpatient (BNVA) | payer OTHER, SELFPAY | PROVIDERS: PCP Nurse Practitioner Family; Visit Provider Nurse Practitioner | DX: K21.9 Gastro-esophageal reflux disease without esophagitis (principal); K31.84 Gastroparesis; K59.00 Constipation, unspecified; K58.9 Irritable bowel syndrome, unspecified | CPT/HCPCS: 99212 ==

== ENCOUNTER → 2025-05-06 16:14 | Outpatient (BNVA) | payer OTHER, SELFPAY | PROVIDERS: PCP Nurse Practitioner Family; Visit Provider Nurse Practitioner | DX: K21.9 Gastro-esophageal reflux disease without esophagitis (principal); K59.00 Constipation, unspecified; K31.84 Gastroparesis; R14.0 Abdominal distension (gaseous) | CPT/HCPCS: 99212 ==

== ENCOUNTER → 2025-05-06 16:14 | Outpatient (AMB) | payer OTHER, SELFPAY ==
[2025-05-06 16:16] VITALS: BP 95/53; PULSE 75
--- NOTE | 2025-05-06 16:16 | A.OFFVIS_ITS ---
Vital Signs 05/06/25 16:16 Height 5 ft 2 in BP 95/53 L Blood Pressure Location Rt brachial Position Sitting Pulse 75 Intake Visit Reasons: bloating, CIC Intake Note: Dunia presents in follow up of CIC and bloating. CC: Patient reports that she still taking bisacodyl x3 tabs at bedtime but is having one BM with blood and hard. 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 Accompanied by: Self / Same As Patient Allergies sumatriptan (From IMITREX) Allergy (Intermediate, Verified 05/06/25 16:23) RIGHT SIDED FACIAL NUMBNESS zolmitriptan (From ZOMIG) Allergy (Intermediate, Verified 05/06/25 16:23) PASSED OUT HPI HPI bloating, CIC: Details: Assessment & Plan (1) GERD (gastroesophageal reflux disease): Code(s): K21.9 - Gastro-esophageal reflux disease without esophagitis Category: Medical (2) Gastroparesis: Code(s): K31.84 - Gastroparesis Category: Medical (3) Constipation: Code(s): K59.00 - Constipation, unspecified Category: Medical (4) IBS (irritable bowel syndrome): Code(s): K58.9 - Irritable bowel syndrome, unspecified Category: Medical Plan Her current GI regimen consists of Dexilant, Linzess 290 micro g, bisacodyl, Reglan 10 mg 4 times a day, and simethicone. The patient is a 45-year-old female presenting with bloating and constipation. She has experienced persistent abdominal bloating, notably after eating small meals, leading to significant discomfort. Her constipation is managed with Linsess and bisacodyl, although she continues to struggle with complete evacuation. Previous assumptions of a viral origin for her symptoms have passed, yet the bloating persists. Her medical history includes hypothyroidism following a partial thyroidectomy, which continues to impact her bowel function. Recent lab results indicated elevated TSH levels, prompting an increase in her levothyroxine dose to address thyroid hormone imbalances, which may contribute to the constipation. The patient also reports low calcium levels post-surgery, managed with supplements, though absorption remains a concern. Despite these challenges, her type 2 diabetes is well-controlled. A stool test is planned to explore pancreatic function further due to excessive gas production. Contributing factors to her ongoing constipation of the fact that she will not take Linzess when she is working and only takes it on weekends because she is fearful being in the bathroom too much on her job, her low thyroid function, the necessity you take 4 times a day high-dose calcium which is constipating. I believe that are severe and ongoing bloating really is a function of her problems controlling the constipation causing gas trapping since she is not moving her bowels with any regularity. While I will explore pancreatic elastase I really doubt that this any other underlying pathology contributing to this in terms of over gas production. - Continue taking your prescribed thyroid medication, levothyroxine, at the updated dose of 88 mcg daily. - Maintain your current calcium and Calcitriol supplementation regimen as advised. - Attend the lab for the pancreatic enzyme stool test at your earliest convenience. - Monitor your symptoms and dietary intake, keeping an eye on foods that may contribute to bloating. - Schedule a follow-up appointment in six weeks to re-evaluate thyroid function and digestive symptoms. - Report any significant changes in symptoms or concerns to our office. - Maintain your current diabetes management regimen as directed by your primary care provider. Orders: Orders Pancreatic Elastase-1 Today K58.9 - Irritable bowel syndrome, unspecified LABS; Pancreatic a last taste not obtained TODAYS VISIT [facility] Medical History (Updated 03/25/25 @ 16:42 by BETTINA Petty) Small intestinal bacterial overgrowth IBS (irritable bowel syndrome) Depression Back pain Hypothyroid Diabetes mellitus Migraine HINA on CPAP High cholesterol Surgical History H/O partial thyroidectomy History of biopsy Hx of cholecystectomy Hx of esophagogastroduodenoscopy Hx of colonoscopy Family History Father Diabetes Mental health problem Mother HTN (hypertension) Heart problem Type 2 diabetes mellitus Brother Colon cancer Social History Household Members: Significant Other Alcohol intake: current Alcohol intake frequency: holidays/special occasions only Comment: Pt due for Amovig SQ injection today for CARTER Patient Tobacco Use Status: Never used Tobacco Current occupational status: employed 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 Review of Systems Const Denies fatigue, Denies fever(s), Denies night sweats, Denies poor appetite, Reports weight gain and Denies weight loss ENT Reports Normal hearing present, Denies dental pain, Denies dysphagia, Denies hearing loss, Denies mouth pain, Denies odynophagia, Denies throat swelling, Denies tongue swelling and Reports other (Dentition adequate) Card Reports no additional complaints Resp Reports no additional complaints GI Details: Denies abdominal pain, Denies melena, Reports bloating, Reports hematochezia, Reports constipation, Denies GI cramping, Denies dysphagia, Denies excessive flatus, Reports early satiety, Reports heartburn, Denies diarrhea, Denies nausea, Denies odynophagia, Denies vomiting and Denies hematemesis Skin/Breast Denies pruritus, Denies lesions, Denies rash and Denies jaundice Neuro Reports Normal hearing present and Denies Abnormal speech present Endo Denies fatigue Aller/Immun Denies throat swelling and Denies tongue swelling Physical Exam Vital Signs: Last Vital Signs Pulse 75 05/06/25 16:16 BP 95/53 L 05/06/25 16:16 Const General: cooperative, no acute distress, well developed and well groomed Nutritional Appearance: well nourished and obese Orientation/consciousness: oriented to person, oriented to place and oriented to time Limitations: No language barrier HEENT Head: Yes normocephalic and Yes atraumatic Eyes General: appearance normal, both eyes and all related structures Pupils: Equal, round and reactive pupils present Neck Neck: Yes normal visual inspection and Yes no lymphadenopathy Thyroid: Thyroid normal Resp Effort & Inspection: normal respiratory effort and able to speak in complete sentences Auscultation: clear to auscultation bilaterally Cardio Rate: regular rate Rhythm: regular rhythm Heart sounds: Normal, physiologic split S2 sound present Peripheral pulses: radial pulses present and posterior tibial pulses present GI Inspection: No distended, Yes Abdominal panniculus present and Yes obesity Palpation (GI): Soft to palpation, nontender, no guarding, not rigid and No hepatosplenomegaly present Percussion: Yes normal to percussion Auscultation: normal bowel sounds Rectal Exam - Female: deferred Skin General skin exam: no rashes or lesions noted, turgor normal, skin not dry, no jaundice, No spider nevi and no striae Rashes: no rashes Nails: normal Neuro General: oriented to person, oriented to place and oriented to time Cranial nerves: Yes Equal, round and reactive pupils present and Yes Normal hearing present Speech: No Abnormal speech present Extrem General: Yes normal to inspection, No clubbing, No cyanosis and No edema Psych Appearance: grossly normal and well kempt Mental Status: mental status grossly normal Speech and movement: Normal speech and movement present Affect: normal affect Attitude: cooperative Thought process: Normal thought process present and not confabulating Thought content: Normal thought content present Insight: Fair insight present (Psych) Judgement: Fair judgement present (Psych) Assessment & Plan Assessment & Plan (1) Constipation: Code(s): K59.00 - Constipation, unspecified Category: Medical (2) GERD (gastroesophageal reflux disease): Code(s): K21.9 - Gastro-esophageal reflux disease without esophagitis Category: Medical (3) Gastroparesis: Code(s): K31.84 - Gastroparesis Category: Medical Plan Her current GI regimen consists of Dexilant, Linzess 290 micro g, bisacodyl, Reglan 10 mg 4 times a day, and simethicone. (Contributing factors to her ongoing constipation of the fact that she will not take Linzess when she is working and only takes it on weekends because she is fearful being in the bathroom too much on her job, her low thyroid function, the necessity you take 4 times a day high-dose calcium which is constipating. I believe that are severe and ongoing bloating really is a function of her problems controlling the constipation causing gas trapping since she is not moving her bowels with any regularity. While I will explore pancreatic elastase I really doubt that this any other underlying pathology contributing to this in terms of over gas production.) Pancreatic elastase was not obtained. - The patient is a 45-year-old female presenting with evaluation for constipation, GERD, gastroparesis and hematochezia. - Following an increase in thyroid medication, the patient reports transitioning to a daily defecation pattern marked by initial hard stools and associated bright red blood, likely due to straining. She does not take the Linzess consistently because of her job and she takes 3 bisacodyl at night. I suggest we add Colace to her regimen to soften the stools and try to mitigate bleeding. - A colonoscopy conducted approximately 2.5 to 3 years ago revealed a hyperplastic polyp. Because of this I do not think the bleeding is related to colon cancer, next year she will be due for repeat colonoscopy. She has a family history of colorectal cancer in a sibling. - Nutritional adjustments towards a diet high in salads have been undertaken, although undigested food particles are noted in stools, raising concerns for possible malabsorption. While I do not know if this is something serious I did order a pancreatic elastase to look into her production of digestive enzymes. Since she was only taking her Reglan PRN I suggest she take it regularly to promote better pacing of the GI system and bowel regularity. - She is undergoing regular thyroid monitoring and has been diagnosed as pr emenopausal, with experienced symptoms of hot flashes contributing to changes in bowel regularity. Return office visit in 8 weeks Pancreatic Elastase- Medications: New docusate sodium (Colace) 100 mg PO .DAILY WITH FOOD 30 caps 6RF 30 days Changed From metoclopramide HCl 10 mg PO QIDACHS PRN K31.84 - Gastroparesis To metoclopramide HCl (Reglan) 10 mg PO QIDACHS 120 tabs 5RF K31.84 - Gastroparesis Refilled bisacodyl (Dulcolax (bisacodyl)) 15 mg (3 x 5 mg) PO BEDTIME 270 tabs 3RF constipation 90 days K59.00 - Constipation, unspecified dexlansoprazole 60 mg PO DAILY 90 caps 1RF K21.9 - Gastro-esophageal reflux disease without esophagitis, K63.89 - Other specified diseases of intestine, R14.0 - Abdominal distension (gaseous) simethicone 180 mg PO QID 120 caps 6RF R14.0 - Abdominal distension (gaseous) Coding Level of Care Code Est Pt Level 3 (23221) Diagnoses Constipation K59.00 GERD (gastroesophageal reflux disease) K21.9 Gastroparesis K31.84
== END ==
LOC: HO.HGI 16:14
PROVIDERS: PCP Nurse Practitioner Family; Visit Provider Nurse Practitioner
DX: K59.00 Constipation, unspecified (principal); K21.9 Gastro-esophageal reflux disease without esophagitis; K31.84 Gastroparesis
CPT/HCPCS: 99213

== ENCOUNTER 2025-07-01 16:13 | Outpatient (AMB) | payer OTHER, SELFPAY ==
--- OUTSIDE RECORDS SUMMARY | 2025-06-25 23:59 | XMS_ITS | Continuity of Care Document ---
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 Dx: acute bronchitis with bronchospasm, 04/27/24 5:59:00 PM EDT, Supply, 165.2, cm, 04/27/24 17:05:00 EDT, Height Start Date: 04/27/24 Status: Ordered Medication Dispense Status: Completed Quantity: 1.0 Unit: each Total Allowed Fills: 1 Fills Dispensed: 0 albuterol CFC free 90 mcg/inh inhalation aerosol 2, puffs, Inhalation, Every 4 hours, PRN, # 1 each, Refills 0, Tot. Refills 0, Maintenance, :41:00 PM EDT, Route to Pharmacy Electronically, [id number], [facility]/pharmacy #[id number], My dispense any covered albuterol MDI, 165.2, cm, 04/27/24 17:05:00 EDT, Height Start Date: 04/27/24 Stop Date: 05/27/24 Status: Ordered Medication Dispense Status: Completed Quantity: 1.0 Unit: each Total Allowed Fills: 1 Fills Dispensed: 0 atorvastatin 10 mg oral tablet 1 tablet, By Mouth, Daily, # 90 tablet, 1 Refills, Maintenance, 03/10/25 9:57:00 AM EDT, [facility]/pharmacy #[id number], 165, cm, 02/09/25 15:54:00 EDT, Height, 110.6, kg, 01/16/25 8:33:00 EDT, Dry Weight Start Date: 03/10/25 Status: Ordered Medication Dispense Status: Completed Quantity: 90.0 Unit: tablet Total Allowed Fills: 2 Fills Dispensed: 0 bisacodyl 5 mg oral delayed release tablet 1 tablet = 5 mg, TAKE 3 TABLETS ORALLY BEDTIME FOR CONSTIPATION FOR 90 DAYS Start Date: 12/28/24 Status: Ordered Medication Dispense Status: Completed Total Allowed Fills: 1 Fills Dispensed: 0 calcitriol 0.25 mcg oral capsule 1 capsule = 0.25 mcg, By Mouth, Daily, # 90 capsule, 0 Refills, Maintenance, 02/19/25 1:16:00 PM EDT, Capsule, [facility]/pharmacy #[id number], Partial fill upon patient request if the prescription is for a schedule II opioid drug., 165, cm, 02/09/25 15:54:00 EDT, Height, 110.6, kg, 01/16/25 8:33:00 EDT, Dry Weight Start Date: 02/19/25 Status: Ordered Medication Dispense Status: Completed Quantity: 90.0 Unit: capsule Total Allowed Fills: 1 Fills Dispensed: 0 calcitriol 0.25 mcg oral capsule 1 capsule = 0.25 mcg, By Mouth, 2 times a day, # 60 capsule, 2 Refills, Maintenance, 06/23/25 4:21:00 PM EST, Capsule, [facility]/pharmacy #[id number], Partial fill upon patient request if the prescription is fora schedule II opioid drug., 165, cm, 05/27/25 14:44:00 EDT, Height, 110.6, kg, 01/16/25 8:33:00 EDT, Dry Weight Start Date: 06/23/25 Status: Ordered Medication Dispense Status: Completed Quantity: 60.0 Unit: capsule Total Allowed Fills: 3 Fills Dispensed: 0 calcitriol 0.25 mcg oral capsule = 0.25 mcg, By Mouth, Daily, 0 Refills, Maintenance, 01/16/25 9:33:00 AM EDT, Capsule, Partial fill upon patient request if the prescription is for a schedule II opioid drug. Start Date: 01/16/25 Status: Ordered Medication Dispense Status: Completed Total Allowed Fills: 1 Fills Dispensed: 0 calcium (as citrate)-vitamin D 315 mg-250 intl units oral tablet 2 tablet, By Mouth, 2 times a day, # 120 tablet, 0 Refills, Maintenance, 01/16/25 9:06:00 AM EDT, Tablet, [facility]/pharmacy #[id number], Partial fill upon patient request if the prescription is for a schedule II opioid drug., 2 tablet By Mouth 2 times a day, 165, cm, 01/16/25 7:57:00 EDT, Height, 110.6, kg, 01/16/25 8:33:00 EDT, Dry Weight Start Date: 01/16/25 Status: Ordered Medication Dispense Status: Completed Quantity: 120.0 Unit: tablet Total Allowed Fills: 1 Fills Dispensed: 0 Colace sodium 100 mg oral capsule 100 mg, 1, capsule, By Mouth, 2 times a day, PRN, # 20 capsule, Refills 0, Tot. Refills 0, Maintenance, for constipation, 01/15/25 4:35:00 PM EDT, Route to Pharmacy Electronically, [facility]/pharmacy #[id number], Partial fill upon patient request if the prescription is for a schedule II opioid drug., 165, cm, 01/15/25 10:45:00 EDT, Height, 108, kg, 01/15/25 10:45:00 EDT, Dry Weight Start Date: 01/15/25 Status: Ordered Medication Dispense Status: Completed Quantity: 20.0 Unit: capsule Total Allowed Fills: 1 Fills Dispensed: 0 dapagliflozin 5 mg oral tablet 1 tablet, By Mouth, Daily, # 90 tablet, 1 Refills, Maintenance, 02/16/25 4:07:00 PM EDT, [facility]/pharmacy#[id number], 165, cm, 02/09/25 15:54:00 EDT, Height, 110.6, kg, 01/16/25 8:33:00 EDT, Dry Weight Start Date: 02/16/25 Status: Ordered Medication Dispense Status: Completed Quantity: 90.0 Unit: tablet Total Allowed Fills: 2 Fills Dispensed: 0 Dexilant 60 mg oral delayed release capsule 1 capsule = 60 mg, By Mouth, Daily, # 30 capsule, 0 Refills, Maintenance, 04/05/21 8:18:00 AM EDT, [facility] Capsule, Partial fill upon patient request if the prescription is for a schedule II opioid drug. Start Date: 04/05/21 Status: Ordered Medication Dispense Status: Completed Quantity: 30.0 Unit: capsule Total Allowed Fills: 1 Fills Dispensed: 0 exenatide 2 mg/0.85 mL subcutaneous suspension, extended release = 2 mg, Subcutaneous Infusion, Every 7 days, # 3.4 mL, 0 Refills, Maintenance, 01/11/25 2:08:00 PM EDT, [facility]/pharmacy #[id number], Partial fill upon patient request if the prescription is for a schedule II opioid drug., 166, cm, 01/11/25 13:38:00 EDT, Height, 107.6, kg, 12/28/24 8:53:00 EDT, Dry Weight Start Date: 01/11/25 Stop Date: 02/10/25 Status: Ordered Medication Dispense Status: Completed Quantity: 3.4 Unit: mL Total Allowed Fills: 1 Fills Dispensed: 0 fluticasone 50 mcg/inh nasal spray 1 sprays = 50 mcg, Nares, Both, 2 times a day, # 16 Gm, 0 Refills, Maintenance, 07/11/23 2:03:00 [facility], [place], [id number], Partial fill upon patient request if the prescription is for a schedule II opioid drug., 1 sprays Nares, Both 2 times a day, 164, cm, 05/28/23 7:42:00 EDT, Height Start Date: 07/11/23 Status: Ordered Medication Dispense Status: Completed Quantity: 16.0 Unit: g Total Allowed Fills: 1 Fills Dispensed: 0 Freestyle Lancets See Instructions, # 100 each, Refills 2, Tot. Refills 2, Maintenance, DX E11.9 Use to test blood sugares twice daily, 12/27/23 11:25:00 AM EDT, Supply, 165.2, cm, 11/26/23 9:22:00 EDT, Height Start Date: 12/27/23 Status: Ordered Medication Dispense Status: Completed Quantity: 100.0 Unit: each Total Allowed Fills: 3 Fills Dispensed: 0 FreeStyle Gwyn 2 Sensors See Instructions, # 2 each, Maintenance, Change every 14 days, 01/11/25 2:14:00 PM EDT, Supply, 166, cm, 01/11/25 13:38:00 EDT, Height, 107.6, kg, 12/28/24 8:53:00 EDT, Dry Weight Start Date: 01/11/25 Status: Ordered Medication Dispense Status: Completed Quantity: 2.0 Unit: each Total Allowed Fills: 1 Fills Dispensed: 0 Indications: Type 2 diabetes mellitus without complications; Freestyle Lite Test Strips See Instructions, # 100 each, Refills 5, Tot. Refills 5, Maintenance, DX E11.9 Use to test bloos sugars twice daily., 02/16/25 4:07:00 PM EDT, Supply, 165, cm, 02/09/25 15:54:00 EDT, Height, 110.6, kg,01/16/25 8:33:00 EDT, Dry Weight Start Date: 02/16/25 Status: Ordered Medication Dispense Status: Completed Quantity: 100.0 Unit: each Total Allowed Fills: 6 Fills Dispensed: 0 levothyroxine 0.1 mg oral tablet 1 tablet = 100 mcg, By Mouth, Daily, # 90 tablet, 3 Refills, Maintenance, 06/02/25 9:16:00 AM EDT, [facility]/pharmacy #[id number], Partial fill upon patient request if the prescription is for a schedule II opioid drug., 165, cm, 05/27/25 14:44:00 EDT, Height, 110.6, kg, 01/16/25 8:33:00 EDT, Dry Weight Start Date: 06/02/25 Stop Date: 05/28/26 Status: Ordered Medication Dispense Status: Completed Quantity: 90.0 Unit: tablet Total Allowed Fills: 4 Fills Dispensed: 0 Indications: Malignant neoplasm of thyroid gland; Linzess 72 mcg oral capsule 2 capsule = 144 mcg, By Mouth, Daily, do not crush or chew, # 30 capsule, 0 Refills, Maintenance, 07/04/20 8:20:00 AM EST, Capsule, Partial fill upon patient request Start Date: 07/04/20 Status: Ordered Medication Dispense Status: Completed Quantity: 30.0 Unit: capsule Total Allowed Fills: 1 Fills Dispensed: 0 lisinopril 20 mg oral tablet 1, tablet, By Mouth, Daily, # 90 tablet, Refills 1, Tot. Refills 1, Maintenance, 03/10/25 9:57:00 AMEDT, Route to Pharmacy Electronically, [facility]/pharmacy #[id number], 165, cm, 02/09/25 15:54:00 EDT, Height, 110.6, kg, 01/16/25 8:33:00 EDT, Dry Weight Start Date: 03/10/25 Status: Ordered Medication Dispense Status: Completed Quantity: 90.0 Unit: tablet Total Allowed Fills: 2 Fills Dispensed: 0 metoclopramide 5 mg oral tablet 1 tablet = 5 mg, TAKE 1 TABLET BY MOUTH THREE TIMES A DAY Start Date: 12/28/24 Status: Ordered Medication Dispense Status: Completed Total Allowed Fills: 1 Fills Dispensed: 0 naproxen 500 mg oral tablet 1 tablet, By Mouth, 2 times a day, # 60 tablet, 0 Refills, Maintenance, 07/06/24 3:43:00 PM EST, [id number], 165.2, cm, 04/27/24 17:05:00 EDT, Height Start Date: 07/06/24 Stop Date: 08/05/24 Status: Ordered Medication Dispense Status: Completed Quantity: 60.0 Unit: tablet Total Allowed Fills: 1 Fills Dispensed: 0 sertraline 100 mg oral tablet 1 tablet, By Mouth, Daily, # 90 tablet, 1 Refills, Maintenance, 02/26/25 2:17:00 PM EDT, [id number], 165, cm, 02/09/25 15:54:00 EDT, Height, 110.6, kg, 01/16/25 8:33:00 EDT, Dry Weight Start Date: 02/26/25 Status: Ordered Medication Dispense Status: Completed Quantity: 90.0 Unit: tablet Total Allowed Fills: 1 Fills Dispensed: 0 Trulicity Pen 0.75 mg/0.5 mL subcutaneous solution 0.5 mL = 0.75 mg, Subcutaneous Injection, Every week, rotate injection sites, # 2.5 mL, 0 Refills, Maintenance, 01/12/25 12:01:00 PM EDT, Solution, [facility]/pharmacy #[id number], Partial fill upon patient requestif the prescription is for a schedule II opioid drug., 166, cm, 01/11/25 13:38:00 EDT, Height, 107.6, kg, 12/28/24 8:53:00 EDT, Dry Weight Start Date: 01/12/25 Stop Date: 02/11/25 Status: Ordered Medication Dispense Status: Completed Quantity: 2.5 Unit: mL Total Allowed Fills: 1 Fills Dispensed: 0 Problem List Condition Confirmation Course Effective Dates [...] lumbar intervertebral disc Confirmed Active Severe obesity Confirmed Active Snoring Confirmed Active Lumbar spinal stenosis Confirmed Active Chronic migraine Confirmed Active Type 2 diabetes mellitus Confirmed Active Vitamin D deficiency Confirmed Active 1US/FNA 05/2921. US in 18 months, then q 2 years. Refer endocrine if volume increased by 50% Social History Social History Type Response Smoking Status Never smoker entered on: 02/11/18 Sexual Orientation Self described orien tation: ; Straight or heterosexual Sex Sex Representation Female (finding) Patient Care team information Care Team Personnel Name: Venus Mcelroy NP Position: [facility] PCO Associate Professional Member Role: PCP Address: [address] [place] [id number] Telecom: Name: Ilene Goldstein RN Position: S RN Member Role: Primary Care Nurse Name: Joana Gillespie RN Position: [facility] RN Member Role: Primary Care Nurse Care Team Related Persons Name: ALEJANDRO BARRERA Name: SALOMON SLADE Insurance Providers Guarantor name: HELLEN SLADE Health Plan Information #: 1 Payer: [facility] Payer Identifier: NA Member Number: [id number] Group Number: [id number] Subscriber Identifier: [id number] Relationship to Subscriber: self Coverage Type: Medicaid (Managed Care) Coverage Verification Date: NA Telecom: NA Address: NA
--- OUTSIDE RECORDS SUMMARY | 2025-06-26 23:59 | XMS_ITS | Continuity of Care Document ---
Author Organization [facility] Adult Address [address] [place] [address]- Care Team Providers Care Tower Technician Name Role Phone Venus Mcelroy NP Primary Care Physician [place] [facility] [place] 05/27/25 - 06/26/25 [facility] Adult [address] [place] [phone]- Attending Physician: Admlin, [id number] Admitting Physician: AdmtrMaryan Referring Physician: Admtr, [id number] [...] tetanus/diphtheria/pertussis, acel(Tdap) 01/25/18 Given 1Result Comment: [facility] [id number] Medications Aerochamber See Instructions, # 1 each, [...] :41:00 PM EDT, Route to Pharmacy Electronically, [id number], [facility]/pharmacy #[id number], My dispense any covered albuterol MDI, 165.2, cm, 04/27/24 17:05:00 EDT, Height Start Date: 04/27/24 Stop Date: 05/27/24 Status: Ordered Medication Dispense Status: Completed Quantity: 1.0 Unit: each Total Allowed Fills: 1 Fills Dispensed: 0 atorvastatin 10 mg oral tablet 1 tablet, By Mouth, Daily, # 90 tablet, 1 Refills, Maintenance, 03/10/25 9:57:00 AM EDT, [facility]/pharmacy #[id number], 165, cm, 02/09/25 15:54:00 EDT, Height, [...] Refills, Maintenance, 02/19/25 1:16:00 PM EDT, Capsule, [facility]/pharmacy #[id number], Partial fill upon patient request if [...] Refills, Maintenance, 06/23/25 4:21:00 PM EST, Capsule, [facility]/pharmacy #[id number], Partial fill upon patient request if [...] Refills, Maintenance, 01/16/25 9:06:00 AM EDT, Tablet, [facility]/pharmacy #[id number], Partial fill upon patient request if [...] 4:35:00 PM EDT, Route to Pharmacy Electronically, [facility]/pharmacy #[id number], Partial fill upon patient request if [...] 1 Refills, Maintenance, 02/16/25 4:07:00 PM EDT, [facility]/pharmacy#0488, 165, cm, 02/09/25 15:54:00 EDT, Height, 110.6, [...] 0 Refills, Maintenance, 01/11/25 2:08:00 PM EDT, [facility]/pharmacy #[id number], Partial fill upon patient request if [...] 16 Gm, 0 Refills, Maintenance, 07/11/23 2:03:00 PMESandi ALDANA, [facility]/pharmacy #[id number], Partial fill upon patient request if [...] 3 Refills, Maintenance, 06/02/25 9:16:00 AM EDT, [facility]/pharmacy #[id number], Partial fill upon patient request if [...] 03/10/25 9:57:00 AMEDT, Route to Pharmacy Electronically, [facility]/pharmacy #[id number], 165, cm, 02/09/25 15:54:00 EDT, Height, [...] 0 Refills, Maintenance, 07/06/24 3:43:00 PM EST, [facility] STORE [facility]3935, 165.2, cm, 04/27/24 17:05:00 EDT, Height Start Date: 07/06/24 Stop Date: 08/05/24 Status: Ordered Medication Dispense Status: Completed Quantity: 60.0 Unit: tablet Total Allowed Fills: 1 Fills Dispensed: 0 sertraline 100 mg oral tablet 1 tablet, By Mouth, Daily, # 90 tablet, 1 Refills, Maintenance, 02/26/25 2:17:00 PM EDT, [facility], 165, cm, 02/09/25 15:54:00 EDT, Height, 110.6, kg, 01/16/25 8:33:00 EDT, Dry Weight Start Date: 02/26/25 Status: Ordered Medication Dispense Status: Completed Quantity: 90.0 Unit: tablet Total Allowed Fills: 1 Fills Dispensed: 0 Trulicity Pen 0.75 mg/0.5 mL subcutaneous solution 0.5 mL = 0.75 mg, Subcutaneous Injection, Every week, rotate injection sites, # 2.5 mL, 0 Refills, Maintenance, 01/12/25 12:01:00 PM EDT, Solution, [facility]/pharmacy #[id number], Partial fill upon patient requestif the [...] Refer endocrine if volume increased by 50% Procedures Procedure Date Related Diagnosis Body Site Status Colonoscopy 1 08/25/20 Completed 1repeat 5 years Social History Social History Type Response Smoking Status Never smoker entered on: 02/11/18 Sexual Orientation Self described orien tation: ; Straight or heterosexual Sex Sex Representation Female (finding) Laboratory * Event Display: Laboratory Result Scanned Authored Date: * Event Display: Laboratory Result Scanned Authored Date: * Event Display: Non BH Lab Results Authored Date: * Event Display: Laboratory Result Scanned Authored Date: MG Breast Views * Event Display: MM Mammogram Authored Date: MR Spine * Event Display: MRI Spine Authored Date: Patient Care team information Care Team Personnel Name: Venus Mcelroy NP Position: [facility] PCO Associate Professional Member Role: PCP Address: [address] [place] [address] Telecom: Name: Ilene Goldstein RN Position: S RN Member Role: Primary Care Nurse Name: Jonaa Gillespie RN Position: S RN Member Role: Primary Care Nurse Care Team Related Persons Name: ALEJANDRO BARRERA Name: SALOMON SLADE Insurance Providers Guarantor name: HELLEN SLADE Health Plan Information #: 1 Payer: [employer] Payer Identifier: KHUSHBU Member Number: [id number] Group Number: [id number] Subscriber Identifier: NA Relationship to Subscriber: self Coverage Type: Medicaid (Managed Care) Coverage Verification Date: KHUSHBU Telecom: NA Address: NA
--- OUTSIDE RECORDS SUMMARY | 2025-06-27 23:59 | XMS_ITS | Continuity of Care Document ---
Author Organization [facility] Adult Address [address] [place] [address]- Care Team Providers Care Cable Engineer Outside Plant Name Role Phone Venus Mcelroy NP Primary Care Physician [phone] [place] [facility] [place] 06[place]27/25 [facility] Adult [address] [place] [address]- Encounter Type: Triage Allergies, Adverse Reactions, Alerts [...] d tetanus/diphtheria/pertussis, acel(Tdap) 01/25/18 Given 1Result Comment: [facility] [id number] Medications Aerochamber See Instructions, # 1 each, [...] :41:00 PM EDT, Route to Pharmacy Electronically, [id number], [facility]/pharmacy #[id number], My dispense any covered albuterol MDI, 165.2, cm, 04/27/24 17:05:00 EDT, Height Start Date: 04/27/24 Stop Date: 05/27/24 Status: Ordered Medication Dispense Status: Completed Quantity: 1.0 Unit: each Total Allowed Fills: 1 Fills Dispensed: 0 atorvastatin 10 mg oral tablet 1 tablet, By Mouth, Daily, # 90 tablet, 1 Refills, Maintenance, 03/10/25 9:57:00 AM EDT, [facility]/pharmacy #[id number], 165, cm, 02/09/25 15:54:00 [...] Refills, Maintenance, 02/19/25 1:16:00 PM EDT, Capsule, [facility]/pharmacy #[id number], Partial fill upon patient [...] Refills, Maintenance, 06/23/25 4:21:00 PM EST, Capsule, [facility]/pharmacy #[id number], Partial fill upon patient [...] Refills, Maintenance, 01/16/25 9:06:00 AM EDT, Tablet, [facility]/pharmacy #[id number], Partial fill upon patient [...] 4:35:00 PM EDT, Route to Pharmacy Electronically, [facility]/pharmacy #[id number], Partial fill upon patient [...] 1 Refills, Maintenance, 02/16/25 4:07:00 PM EDT, [facility]/pharmacy#0488, 165, cm, 02/09/25 15:54:00 EDT, [...] 0 Refills, Maintenance, 01/11/25 2:08:00 PM EDT, [facility]/pharmacy #[id number], Partial fill upon patient [...] day, # 16 Gm, 0 Refills, Maintenance, 11/30/23 2:03:00 PMEST, [place], [id number], Partial fill upon patient request [...] 3 Refills, Maintenance, 06/02/25 9:16:00 AM EDT, [facility]/pharmacy #[id number], Partial fill upon patient [...] 03/10/25 9:57:00 AMEDT, Route to Pharmacy Electronically, [facility]/pharmacy #[id number], 165, cm, 02/09/25 15:54:00 [...] 0 Refills, Maintenance, 07/06/24 3:43:00 PM EST, [facility] STORE 416[facility], 165.2, cm, 04/27/24 17:05:00 EDT, Height Start Date: 07/06/24 Stop Date: 08/05/24 Status: Ordered Medication Dispense Status: Completed Quantity: 60.0 Unit: tablet Total Allowed Fills: 1 Fills Dispensed: 0 sertraline 100 mg oral tablet 1 tablet, By Mouth, Daily, # 90 tablet, 1 Refills, Maintenance, 02/26/25 2:17:00 PM EDT, [facility], 165, cm, 02/09/25 15:54:00 EDT, Height, 110.6, kg, 01/16/25 8:33:00 EDT, Dry Weight Start Date: 02/26/25 Status: Ordered Medication Dispense Status: Completed Quantity: 90.0 Unit: tablet Total Allowed Fills: 1 Fills Dispensed: 0 Trulicity Pen 0.75 mg/0.5 mL subcutaneous solution 0.5 mL = 0.75 mg, Subcutaneous Injection, Every week, rotate injection sites, # 2.5 mL, 0 Refills, Maintenance, 01/12/25 12:01:00 PM EDT, Solution, [facility]/pharmacy #[id number], Partial fill upon patient [...] Team Personnel Name: Venus Mcelroy NP Position: [facility] PCO Associate Professional Member Role: PCP Address: [address] [place] [email or web address] Telecom: Name: Ilene Goldstein RN Position: S RN Member Role: Primary Care Nurse Name: Joana Gillespie RN Position: [facility] RN Member Role: Primary Care Nurse Care Team Related Persons Name: ALEJANDRO BARRERA Name: SALOMON SLADE Insurance Providers Guarantor name: HELLEN SLADE Health Plan Information #: 1 Payer: [facility] Payer Identifier: NA Member Number: [id number] Group Number: [id number] Subscriber Identifier: [id number] Relationship to Subscriber: self Coverage Type: Medicaid (Managed Care) Coverage Verification Date: NA Telecom: NA Address: NA
--- OUTSIDE RECORDS SUMMARY | 2025-06-27 23:59 | XMS_ITS | Continuity of Care Document ---
Author Organization [facility] Adult Address [address] [place] [address]- Care Team Providers Care Community Leader Name Role Phone Venus Mcelroy NP Primary Care Physician [phone] Encounter [facility] [place] Date(s): 05/28/25 - 06/27/25 [facility] Adult [address] [place] [address]- Encounter Type: Triage Allergies, Adverse Reactions, Alerts [...] d tetanus/diphtheria/pertussis, acel(Tdap) 01/25/18 Given 1Result Comment: [facility] [id number] Medications Aerochamber See Instructions, # 1 each, [...] :41:00 PM EDT, Route to Pharmacy Electronically, [id number], [facility]/pharmacy #[id number], My dispense any covered albuterol MDI, 165.2, cm, 04/27/24 17:05:00 EDT, Height Start Date: 04/27/24 Stop Date: 05/27/24 Status: Ordered Medication Dispense Status: Completed Quantity: 1.0 Unit: each Total Allowed Fills: 1 Fills Dispensed: 0 atorvastatin 10 mg oral tablet 1 tablet, By Mouth, Daily, # 90 tablet, 1 Refills, Maintenance, 03/10/25 9:57:00 AM EDT, [facility]/pharmacy #[id number], 165, cm, 02/09/25 15:54:00 EDT, Height, [...] Refills, Maintenance, 06/23/25 4:21:00 PM EST, Capsule, [facility]/pharmacy #[id number], Partial fill upon patient [...] Refills, Maintenance, 01/16/25 9:06:00 AM EDT, Tablet, [facility]/pharmacy #0488, Partial fill upon [...] 4:35:00 PM EDT, Route to Pharmacy Electronically, [facility]/pharmacy #[id number], Partial fill upon patient [...] 1 Refills, Maintenance, 02/16/25 4:07:00 PM EDT, [facility]/pharmacy#0488, 165, cm, 02/09/25 15:54:00 EDT, Height, [...] 0 Refills, Maintenance, 01/11/25 2:08:00 PM EDT, [facility]/pharmacy #0488, Partial fill upon patient [...] Gm, 0 Refills, Maintenance, 07/11/23 2:03:00 [facility], [place], [id number], Partial fill upon patient request [...] 3 Refills, Maintenance, 06/02/25 9:16:00 AM EDT, [facility]/pharmacy #0488, Partial fill upon patient [...] 03/10/25 9:57:00 AMEDT, Route to Pharmacy Electronically, [facility]/pharmacy #[id number], 165, cm, 02/09/25 15:54:00 EDT, Height, [...] 0 Refills, Maintenance, 07/06/24 3:43:00 PM EST, [facility], 165.2, cm, 04/27/24 17:05:00 EDT, Height Start Date: 07/06/24 Stop Date: 08/05/24 Status: Ordered Medication Dispense Status: Completed Quantity: 60.0 Unit: tablet Total Allowed Fills: 1 Fills Dispensed: 0 sertraline 100 mg oral tablet 1 tablet, By Mouth, Daily, # 90 tablet, 1 Refills, Maintenance, 02/26/25 2:17:00 PM EDT, [facility], 165, cm, 02/09/25 15:54:00 EDT, Height, 110.6, kg, 01/16/25 8:33:00 EDT, Dry Weight Start Date: 02/26/25 Status: Ordered Medication Dispense Status: Completed Quantity: 90.0 Unit: tablet Total Allowed Fills: 1 Fills Dispensed: 0 Trulicity Pen 0.75 mg/0.5 mL subcutaneous solution 0.5 mL = 0.75 mg, Subcutaneous Injection, Every week, rotate injection sites, # 2.5 mL, 0 Refills, Maintenance, 01/12/25 12:01:00 PM EDT, Solution, [facility]/pharmacy #[id number], Partial fill upon patient requestif [...] PCO Associate Professional Member Role: PCP Address: [address] [place] [id number] Telecom: Name: Ilene Goldstein RN Position: S RN Member Role: Primary Care Nurse Name: Joana Gillespie RN Position: [facility] RN Member Role: Primary Care Nurse Care Team Related Persons Name: ALEJANDRO BARRERA Name: SALOMON SLADE Insurance Providers Guarantor name: HELLEN SLADE Health Plan Information #: 1 Payer: [facility] Payer Identifier: NA Member Number: [id number] Group Number: [id number] Subscriber Identifier: [id number] Relationship to Subscriber: self Coverage Type: Medicaid (Managed Care) Coverage Verification Date: NA Telecom: NA Address: NA
[2025-07-01 16:15] VITALS: BP 115/58; PULSE 76; BMI 44.4
--- NOTE | 2025-07-01 16:15 | MHC.OFFVIS ---
Vital Signs 07/01/25 16:15 Height 5 ft 2 in Weight 242 lb 8.136 oz BMI 44.4 BP 115/58 L Blood Pressure Location Lt brachial Position Sitting Pulse 76 Intake Visit Reasons: Follow up 8 weeks Intake Note: Patient in office today in 8 weeks follow up of constipation. CC: Patient states that she continues to gain weight. She states that she was advised to d/c metoclopramide do to elevated prolactin and nipple discharge. She states that she d/c the Linzess because it does not work well for her and is taking the bisacody at bedtime. [place] Required: No Accompanied by: Self / Same As Patient Allergies sumatriptan (From IMITREX) Allergy (Intermediate, Verified 07/01/25 16:27) RIGHT SIDED FACIAL NUMBNESS zolmitriptan (From ZOMIG) Allergy (Intermediate, Verified 07/01/25 16:27) PASSED OUT HPI HPI Follow up 8 weeks: Details: Assessment & Plan (1) Constipation: Code(s): K59.00 - Constipation, unspecified Category: Medical (2) GERD (gastroesophageal reflux disease): Code(s): K21.9 - Gastro-esophageal reflux disease without esophagitis Category: Medical (3) Gastroparesis: Code(s): K31.84 - Gastroparesis Category: Medical Plan Her current GI regimen consists of Dexilant, Linzess 290 micro g, bisacodyl, Reglan 10 mg 4 times a day, and simethicone. (Contributing factors to her ongoing constipation of the fact that she will not take Linzess when she is working and only takes it on weekends because she is fearful being in the bathroom too much on her job, her low thyroid function, the necessity you take 4 times a day high-dose calcium which is constipating. I believe that are severe and ongoing bloating really is a function of her problems controlling the constipation causing gas trapping since she is not moving her bowels with any regularity. While I will explore pancreatic elastase I really doubt that this any other underlying pathology contributing to this in terms of over gas production.Pancreatic elastase was not obtained. NOW SHE SAYS SHE HAD TO STOP REGLAN related to an elevated prolactin level. She also feels she can not take Linzess due to side effects) - The patient is a 45-year-old female presenting with evaluation for constipation, GERD, gastroparesis and hematochezia. - Following an increase in thyroid medication, the patient reports transitioning to a daily defecation pattern marked by initial hard stools and associated bright red blood, likely due to straining. She does not take the Linzess consistently because of her job and she takes 3 bisacodyl at night. I suggest we add Colace to her regimen to soften the stools and try to mitigate bleeding. - A colonoscopy conducted approximately 2.5 to 3 years ago revealed a hyperplastic polyp. Because of this I do not think the bleeding is related to colon cancer, next year she will be due for repeat colonoscopy. She has a family history of colorectal cancer in a sibling. - Nutritional adjustments towards a diet high in salads have been undertaken, although undigested food particles are noted in stools, raising concerns for possible malabsorption. While I do not know if this is something serious I did order a pancreatic elastase to look into her production of digestive enzymes. Since she was only taking her Reglan PRN I suggest she take it regularly to promote better pacing of the GI system and bowel regularity. - She is undergoing regular thyroid monitoring and has been diagnosed as premenopausal, with experienced symptoms of hot flashes contributing to changes in bowel regularity. Return office visit in 8 weeks Pancreatic Elastase- Medications: New docusate sodium (Colace) 100 mg PO .DAILY WITH FOOD 30 caps 6RF 30 days Changed From metoclopramide HCl 10 mg PO QIDACHS PRN K31.84 - Gastroparesis To metoclopramide HCl (Reglan) 10 mg PO QIDACHS 120 tabs 5RF K31.84 - Gastroparesis Refilled bisacodyl (Dulcolax (bisacodyl)) 15 mg (3 x 5 mg) PO BEDTIME 270 tabs 3RF constipation 90 days K59.00 - Constipation, unspecified dexlansoprazole 60 mg PO DAILY 90 caps 1RF K21.9 - Gastro-esophageal reflux disease without esophagitis, K63.89 - Other specified diseases of intestine, R14.0 - Abdominal distension (gaseous) simethicone 180 mg PO QID 120 caps 6RF R14.0 - Abdominal distension (gaseous) TODAY'S VISIT [facility] Medical History Small intestinal bacterial overgrowth IBS (irritable bowel syndrome) Depression Back pain Hypothyroid Diabetes mellitus Migraine HINA on CPAP High cholesterol Surgical History H/O partial thyroidectomy History of biopsy Hx of cholecystectomy Hx of esophagogastroduodenoscopy Hx of colonoscopy Family History Father Diabetes Mental health problem Mother HTN (hypertension) Heart problem Type 2 diabetes mellitus Brother Colon cancer Social History Household Members: Significant Other Alcohol intake: current Alcohol intake frequency: holidays/special occasions only Comment: Pt due for Amovig SQ injection today for [facility]TER Patient Tobacco Use Status: Never used Tobacco Current occupational status: employed 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 [employer] Review of Systems Const Denies fatigue, Denies fever(s), Denies night sweats, Denies poor appetite, Reports weight gain and Denies weight loss Eyes Details: glasses Reports requires corrective lenses ENT Reports Normal hearing present, Denies dental pain, Denies dysphagia, Denies hearing loss, Denies mouth pain, Denies odynophagia, Denies throat swelling, Denies tongue swelling and Reports other (Dentition adequate) Card Reports no additional complaints Resp Reports no additional complaints GI Details: Denies abdominal pain, Denies melena, Reports bloating, Denies hematochezia, Reports constipation, Denies GI cramping, Denies dysphagia, Denies excessive flatus, Reports early satiety, Reports heartburn, Denies diarrhea, Denies nausea, Denies odynophagia, Denies vomiting and Denies hematemesis Skin/Breast Denies pruritus, Denies lesions, Denies rash and Denies jaundice Neuro Reports Normal hearing present and Denies Abnormal speech present Endo Denies fatigue Aller/Immun Denies throat swelling and Denies tongue swelling Physical Exam Vital Signs: Last Vital Signs Pulse 76 07/01/25 16:15 BP 115/58 L 07/01/25 16:15 BMI result Body Mass Index 44.4 Const General: cooperative, no acute distress, well developed and well groomed Nutritional Appearance: well nourished and obese Orientation/consciousness: oriented to person, oriented to place and oriented to time Limitations: No language barrier HEENT Head: Yes normocephalic and Yes atraumatic Eyes General: appearance normal, both eyes and all related structures Pupils: Equal, round and reactive pupils present Neck Neck: Yes normal visual inspection and Yes no lymphadenopathy Thyroid: Thyroid normal Resp Effort & Inspection: normal respiratory effort and able to speak in complete sentences Auscultation: clear to auscultation bilaterally Cardio Rate: regular rate Rhythm: regular rhythm Heart sounds: Normal, physiologic split S2 sound present Peripheral pulses: radial pulses present and posterior tibial pulses present GI Inspection: No distended, Yes Abdominal panniculus present and Yes obesity Palpation (GI): Soft to palpation, nontender, no guarding, not rigid and No hepatosplenomegaly present Percussion: Yes normal to percussion Auscultation: normal bowel sounds Rectal Exam - Female: deferred Skin General skin exam: no rashes or lesions noted, turgor normal, skin not dry, no jaundice, No spider nevi and no striae Rashes: no rashes Nails: normal Neuro General: oriented to person, oriented to place and oriented to time Cranial nerves: Yes Equal, round and reactive pupils present and Yes Normal hearing present Speech: No Abnormal speech present Extrem General: Yes normal to inspection, No clubbing, No cyanosis and No edema Psych Appearance: grossly normal and well kempt Mental Status: mental status grossly normal Speech and movement: Normal speech and movement present Affect: normal affect Attitude: cooperative Thought process: Normal thought process present and not confabulating Thought content: Normal thought content present Insight: Good insight present (Psych) Judgement: Good judgement present (Psych) Assessment & Plan Assessment & Plan (1) GERD (gastroesophageal reflux disease): Code(s): K21.9 - Gastro-esophageal reflux disease without esophagitis Category: Medical (2) Gastroparesis: Comment: reglan caused elevated prolactin Code(s): K31.84 - Gastroparesis Category: Medical (3) Constipation: Code(s): K59.00 - Constipation, unspecified Category: Medical Plan Her current GI regimen consists of Dexilant, <del>Linzess</del> <del>290</del> <del>micro</del> <del>g</del>, bisacodyl, <del>Reglan</del> <del>10</del> <del>mg</del> <del>4</del> <del>times</del> <del>a</del> <del>day</del>, and simethicone. (Contributing factors to her ongoing constipation of the fact that she will not take Linzess when she is working and only takes it on weekends because she is fearful being in the bathroom too much on her job, her low thyroid function, the necessity you take 4 times a day high-dose calcium which is constipating. I believe that are severe and ongoing bloating really is a function of her problems controlling the constipation causing gas trapping since she is not moving her bowels with any regularity. While I will explore pancreatic elastase I really doubt that this any other underlying pathology contributing to this in terms of over gas production.Pancreatic elastase was not obtained. NOW SHE SAYS SHE HAD TO STOP REGLAN related to an elevated prolactin level. She also feels she can not take Linzess due to side effects) Subjective Patient presents for GI follow-up regarding chronic slow motility/constipation and medication adjustments. She stopped metoclopramide after developing unilateral breast tenderness with milky then clear nipple discharge about a month ago; PCP evaluation reportedly showed elevated prolactin and advised discontinuation. She is not taking Linzess, as nightly bisacodyl has been effective. Current regimen: takes two bisacodyl nightly Saturday? due to work schedule (7:30?4:00), and three tablets on Saturday and Saturday nights when home. Previously had a single morning bowel movement with hard stools; currently having 3?4 bowel movements per day. Eating a light breakfast (crackers/banana around 8?8:30 AM) can trigger abdominal pain with urgency to defecate. She agrees to a regimen including Dexilant, bisacodyl, and simethicone. She reports recent weight gain since total thyroidectomy five months ago and plans to discuss this with her PCP. She has a diagnostic mammogram scheduled on the and is due for colonoscopy next year. Objective Assessment & Plan Chronic constipation / slow GI motility: Ongoing functional constipation with prior benefit from metoclopramide, now managed with stimulant laxative regimen. Currently achieving daily bowel movements with increased frequency (3?4/day) and some postprandial urgency, which she can manage at work. - Continue bisacodyl; prescribe sufficient quantity to allow up to three tablets daily as needed to maintain regular bowel movements. - Discontinue Linzess from medication list. - Continue simethicone for gas as needed. - Continue Dexilant as part of current regimen. - Avoid metoclopramide given recent galactorrhea. - Follow up in 6 months to reassess symptoms and bowel regimen. Galactorrhea with reported hyperprolactinemia: Patient developed unilateral milky/clear nipple discharge and breast tenderness; PCP reportedly found elevated prolactin and advised stopping metoclopramide. - Remain off metoclopramide. - Proceed with scheduled diagnostic mammogram on the . - Continue coordination with PCP for further evaluation and management of hyperprolactinemia. Weight gain after thyroidectomy: Patient notes significant weight gain in the five months since thyroidectomy. - Advised patient to follow up with PCP to assess thyroid function and other metabolic contributors to weight gain. Colorectal cancer screening: Colonoscopy due next year. - Plan to discuss and arrange at next visit in approximately 6 months. Medications: Refilled simethicone 180 mg PO QID 120 caps 6RF R14.0 - Abdominal distension (gaseous) bisacodyl (Dulcolax (bisacodyl)) 15 mg (3 x 5 mg) PO BEDTIME 270 tabs 3RF constipation 90 days K59.00 - Constipation, unspecified dexlansoprazole 60 mg PO DAILY 90 caps 1RF K21.9 - Gastro-esophageal reflux disease without esophagitis, K63.89 - Other specified diseases of intestine, R14.0 - Abdominal distension (gaseous) docusate sodium (Colace) 100 mg PO .DAILY WITH FOOD 30 caps 6RF 30 days Discontinued linaclotide (Linzess) Discontinued Reason: Doctor's Order 290 mcg PO QAM 30 days 30 caps 6RF K59.00 - Constipation, unspecified metoclopramide HCl (Reglan) Discontinued Reason: Doctor's Order 10 mg PO QIDACHS 120 tabs 5RF K31.84 - Gastroparesis Coding Level of Care Code Est Pt Level 3 (30723) Diagnoses GERD (gastroesophageal reflux disease) K21.9 Gastroparesis K31.84 Constipation K59.00
--- OUTSIDE RECORDS SUMMARY | 2025-07-01 20:57 | XMS_ITS | Clinical Summary ---
Author Organization [facility] ity Address [address] [place] [address] Care Team Providers Care Tenter Name Role Phone Michael Butler MD Primary Care Provider [phone] Social History Tobacco Use Types Packs/Day Years [...] Health Maintenance Due Date Last Done Comments Colorectal Cancer Screening: Colonoscopy 1978 DTaP,Tdap,and Td Vaccines (1 - Tdap) 1997 Hepatitis B Vaccines (1 of 3 - 19+ 3-dose series) 1997 Cervical Cancer Screening: P ap Smear 1999 HIV Screening 07/15/2022 Hepatitis C Screening 07/15/2022 Social Influencers of Health Screening 07/15/2022 Breast Cancer Screening 10/21/2022 10/22/19 21, 10/17/2019, 10/09/2018 Depression Screening 08/12/2024 COVID-19 Vaccine ( - 2024-2 6 season) 2025 Influenza Vaccine (#1) 2025 RSV Immunization Adult Patients (1 - 1-dose 75+ series) 2053 HIB Vaccines Aged Out No longer eligi [...] Procedure Name Priority Date/Time Associated Diagnosis Comments [facility] SCRE[facility] Routine 10/21/2020 4:30 PM EST Encounter for screening mammogram for malignant neoplasm of breast from Last 3 Months or Most Recently Relevant to Health Maintenance Results * [facility] (10/21/2020 4:30 PM EST) Anatomical Region Laterality Modality Mammography 10/21/2020 3:16 PM EST Narrative 10/21/2020 4:30 PM EST [facility] Diagnostic Imaging Department [address] [place] [id number] Patient: DUNIA SLADE Y /Age/Sex: 1980 - 40 - F Unit#: [id number] Location/Status: SPDIMAM/REG CLI Mnemonic/Ordering Site: DIGSC/SPMAM Ordering Physician: EDY CHAPMAN NP [facility] Screening Digital - 10/21/20 - 1546 EXAM: [facility] Screening Digital EXAM DATE AND TIME: 10/21/2020 3:47 PM HISTORY: Annual screening mammography. COMPARISON: 10/16/2022 10/04/2016 TECHNIQUE: CC and MLO views of both breasts were obtained using full field digital mammography. Bilateral digital breast tomosynthesis was performed in the MLO projection. 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 TISSUE DENSITY: b. There are [...] Routine screening mammogram BILATERAL in 1 year. [id number], [id number], 7025F Dictating Physician: FRANCIS HERNANDEZ MD Electronically Signed by: FRANCIS HERNANDEZ MD Dic Date/Time: 10/21/20 1628 Sign date/Time: 10/21/20 1630 Procedure Note Anahy Hernandez MD - 07/31/2022 [facility] Diagnostic Imaging Department [address] [place] [id number] Patient: DUNIA SLADE /Age/Sex: 1980 - 40 - F Unit#: [id number] Location/Status: SPDIMAM/REG CLI Mnemonic/Ordering Site: [facility] Ordering Physician: EDY CHAPMAN NP [facility] Screening Digital - 10/21/20 - 1546 EXAM: [facility] Screening Digital EXAM DATE AND TIME: 10/21/2020 3:47 PM HISTORY: Annual screening mammography. COMPARISON: 10/16/2022 10/04/2016 TECHNIQUE: CC and MLO views of both breasts were obtained using fullfield digital mammography. Bilateral digital breast tomosynthesis was performedin the MLO projection. 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 TISSUE DENSITY: b. There are scattered [...] Routine screening mammogram BILATERAL in 1 year. [id number], [id number] 3341F, 7025F Dictating Physician: FRANCIS HERNANDEZ MD Electronically Signed by: FRANCIS HERNANDEZ MD Dic Date/Time: 10/21/20 1628 Sign date/Time: 10/21/20 1630 Edy Chapman PIPING MANAGER IMG BI PROCEDURES Final Resu lt from Last 3 Months or Most Recently Relevant to Health Maintenance Care Teams Tenter Relationship Specialty Start Date End Date Michael Butler MD [address] [place] [address] PCP - General Internal Medicine 08/15/21
== END 2025-07-01 16:36 ==
LOC: HO.HGI 16:13
PROVIDERS: PCP Nurse Practitioner Family; Visit Provider Nurse Practitioner
DX: K21.9 Gastro-esophageal reflux disease without esophagitis (principal); K31.84 Gastroparesis; K59.00 Constipation, unspecified
CPT/HCPCS: 99213

== ENCOUNTER → 2025-07-01 16:13 | Outpatient (BNVA) | payer OTHER, SELFPAY | PROVIDERS: PCP Nurse Practitioner Family; Visit Provider Nurse Practitioner | DX: K21.9 Gastro-esophageal reflux disease without esophagitis (principal); K31.84 Gastroparesis; K59.00 Constipation, unspecified | CPT/HCPCS: 99212 ==